=== PATIENT | male | born 1980 | race Caucasian/White ===

== ENCOUNTER 2019-08-30 20:45 | Inpatient (IN) | payer OTHER, SELFPAY ==
[2019-08-30 20:47] VITALS: BP 137/88; PULSE 93; RESP 16; TEMP 36.7; O2SAT 95; BMI 24.7
--- NOTE | 2019-08-30 21:12 | CT_ITS ---
STUDY: CT ABDOMEN AND PELVIS WITH CONTRAST REASON FOR EXAM: Male, 38 years old. ALL OVER ABD PAIN X 5 HOURS EXTRUSION FORMER, HX CHRONS DZ WITH COLOSTOMY RADIATION DOSAGE (If Supplied By Facility): CTDIvol = ( 12.61 ) mGy, DLP = ( 832.12 ) mGycm TECHNIQUE: Transaxial images were obtained from the dome of the diaphragm to the symphysis pubis without oral contrast. Oral and amp; IV Gastrografin and amp; 100mL Isovue-370 was administered. Sagittal and coronal images were reconstructed. Individualized dose optimization techniques were used for this CT. COMPARISON: None. FINDINGS: Moderate fluid distention of the stomach and full length of the small bowel due to a distal obstruction in the right upper quadrant where there is a zone of transition from dilated bowel loop to collapse posterior to the right anterior ostomy tract. Extrinsic adhesions suspected as a source for the zone of transition/narrowing. The bowel within the right anterior abdominal ostomy and leading up to this region is unremarkable. No definite colonic loops seen in the remaining aspects of the abdomen and pelvis. Is there history of total colectomy or subtotal colectomy? No free air or free fluid. Mild interstitial edema is present in the bilateral lung bases. Normal liver. No intrahepatic biliary duct dilatation or liver mass. Normal gallbladder and extrahepatic biliary system. Normal spleen. Normal pancreas. Normal bilateral adrenal glands. Normal right kidney. Normal left kidney. No hydronephrosis or renal masses. No large stones. Normal abdominal aorta. Normal inferior vena cava. Normal retroperitoneum. Normal urinary bladder. Normal abdominal wall. Normal osseous structures. CT/Abdomen/Pelvis WITH Contrast IMPRESSION: 1. Moderate fluid distention of the stomach and full length of the small bowel due to a distal obstruction in the right upper quadrant where there is a zone of transition from dilated bowel loop to collapse posterior to the right anterior ostomy tract. Extrinsic adhesions suspected as a source for the zone of transition/narrowing. 2. The bowel within the right anterior abdominal ostomy and leading up to this region is unremarkable. 3. No definite colonic loops seen in the remaining aspects of the abdomen and pelvis. Is there history of total colectomy or subtotal colectomy? 4. No free air or free fluid. 5. Mild interstitial edema is present in the bilateral lung bases. Electronically Signed: Gaetano Walton MD at 23:34 EST , Service support ,
[2019-08-30] MEDS: Ondansetron 4 MG/2 ML Vial IV (21:33)
[2019-08-30] MEDS: 0.9% Normal Saline 1,000 ML 125 ML IV (21:33)
[2019-08-30] MEDS: Morphine 4 MG/ML Syringe IV (21:33)
[2019-08-30 21:48] LABS: Absolute Neutrophil Count 9.2 X10^3/uL (2.0-7.7); Basophil# 0.02 X10^3/uL; Basophil% 0.2 % (0-1); Eosinophil# 0.06 X10^3/uL; Eosinophils% 0.6 % (0-5); Hematocrit 33.7 % (40-54); Hemoglobin 10.9 g/dL (13.0-16.5); Lymphocyte % 6.6 % (19-41); Mean Corp Hgb Conc 32.3 g/dL (32-36); Mean Corpuscular Volume 86.6 fL (80-94); Mean Platelet Vol. 9.1 fl (6.2-12.0); Monocyte# 0.57 X10^3/uL; Monocyte% 5.4 % (0-10); NRBC Flagged by Analyzer 0 % (0-5); Neutrophil # 9.17 X10^3/uL (2.7-7.7); Neutrophil % 86.8 % (47-70); Platelet Count 408 K/mm3 (150-450); RBC Distribution Width CV 14.2 % (11.6-14.6); RBC Distribution Width SD 45.1 fl (35.1-43.9); Red Blood Count 3.89 M/mm3 (4.6-6.2); White Blood Count 10.6 K/mm3 (4.4-11.0)
[2019-08-30 22:06] LABS: ALB/GLOB Ratio 0.7 RATIO (0.9-2.4); AST(SGOT) 14 U/L (15-37); Alanine Aminotransfer ALT/SGPT 19 U/L (16-61); Albumin, Serum 3.5 g/dL (3.2-5.0); Alkaline Phosphatase 86 U/L (45-117); Anion Gap 7 (5-15); BUN 7 mg/dL (7-18); BUN/Creat Ratio 4.6 RATIO (10-20); Calcium,Total 9.7 mg/dL (8.5-10.1); Chloride 100 mmol/L (98-107); Creatinine, Serum 1.51 mg/dL (0.70-1.30); EST Glomerular Filtration Rate 55 mL/min (>60); Est Glom Filt Rate - Afr Amer 67 mL/min (>60); Estimated Creatinine Clearance 77.12 ml/min; Globulin 4.7 g/dL (2.2-4.2); Glucose 112 mg/dL (74-106); Lipase 340 U/L (73-393); Potassium 3.7 mmol/L (3.5-5.1); Protein, Total 8.2 g/dL (6.4-8.2); Sodium Level 134 mmol/L (136-145)
[2019-08-30 22:32] LABS: Lactic Acid 0.8 mmol/L (0.4-1.9)
[2019-08-30] MEDS: Morphine 4 MG/ML Syringe IM (23:41)
--- NOTE | 2019-08-30 23:49 | PCM.HP.STD ---
Problem List (1) SBO (small bowel obstruction) Status: Acute History of Present Illness Date of Admission: 08/30/19 Chief Complaint: abdominal pain The patient is a 38 year old M with a significant history of asthma; anxiety disorder and Crohn's disease status post total colectomy and with ileostomy about 11 years ago presenting with excruciating abdominal pain. It started initially from the upper umbilical region but is now diffused. His pain is nonradiating. His pain increased with with sitting and touching. He denies any ameliorating factors His pain started about 5 and half hours prior to presentation. Associated with symptoms is nausea. Patient vomited while n.p.o. NG tube was attempted at the emergency department. Abdominal and pelvis CT at emergency department showed small bowel obstruction. Reported, Emergency Department doctor discussed the case with Dr. Mae, General Surgery who is ready to follow patient. Patient reported that he has had liquids output in his ileostomy. Past Medical History Medical History: Medical History (Last Reviewed 08/31/19 @ 01:02 by Claude Fields MD) Asthma J45.909 Crohn's disease K50.90 Allergies No Known Allergies Allergy (Verified 08/30/19 20:46) Home Medications: Ambulatory Orders Medication Instructions Recorded Gabapentin [Neurontin] 600 mg PO TIDCM 08/30/19 Surgical History: - - Total colectomy; ileostomy; multiple abdominal surgeries. Lives: With Family Smoking Status: Former smoker Tobacco Use: Cigarettes - *Family History Maternal History Items: Diabetes Paternal History Items: Cancer - Colon cancer and breast cancer Review of Systems Constitutional: Denies: Chills, Fever, Weight Change HEENT: Denies: Head Aches, Sinus Congestion, Sinus Drainage Cardiovascular: Denies: Chest Pain, Palpitations Respiratory: Denies: Cough, Shortness of breath at rest, Sputum production Gastrointestinal: Reports: Abdominal Pain, Nausea, Vomiting Genitourinary: Denies: Dysuria Musculoskeletal: Denies: Joint Pain, Joint Tenderness Skin: Denies: Rash, Wounds Neurological: Denies: Numbness, Tingling, Focal weakness Psychiatric: Reports: Anxiety. Denies: Depression, Homicidal Ideations, Suicidal Ideations Hematologic/ Lymphatic: Denies: Easy Bruising, Easy Bleeding VTE Information - Inpt Only VTE Present on Admission: No VTE Mechan Device Prophylaxis: SCD's VTE Pharm Prophylaxis ordered?: No Patient Problems: Active and Suspected Problems (Last Updated 08/31/19 @ 00:45 by Claude Fields MD) SBO (small bowel obstruction) (Acute) - Physical Exam Vitals/I&O's: Vital Signs Temp Pulse Resp BP Pulse Ox 98.1 F 93 16 137/88 H 95 08/30/19 20:47 08/30/19 20:47 08/30/19 20:47 08/30/19 20:47 08/30/19 20:47 Oxygen Delivery Method Room Air Weight: 87.5 kg Body Mass Index (BMI) 24.7 General: Alert, Oriented x3, Cooperative HEENT: Atraumatic, PERRLA, EOMI, Normocephalic Neck: Supple, No JVD, Negative Carotid Bruits Lungs: Clear to auscultation, Normal air movement Cardiovascular: Regular rate, Normal S1, Normal S2, No murmurs Abdomen: Bowel Sounds Present, Soft, Non Tender, - - Ileostomy bag present; healed midline incisions. Extremities: No edema, Capillary Refill Less than 3 Seconds Skin: No rashes, No breakdown Musculoskeletal: No Tenderness to Palpation of Joints or Extremities Neurological: Cranial nerves II-XII grossly intact Psych/Mental Status: Anxious Laboratory Results 08/30/19 21:35: WBC 10.6, RBC 3.89 L, Hgb 10.9 L, Hct 33.7 L, MCV 86.6, MCH 28.0, MCHC 32.3, RDW Std Deviation 45.1 H, RDW Coeff of Nish 14.2, Plt Count 408, MPV 9.1, Immature Gran % (Auto) 0.400, Neut % (Auto) 86.8 H, Lymph % (Auto) 6.6 L, [place] % (Auto) 5.4, Eos % (Auto) 0.6, Baso % (Auto) 0.2, Absolute Neuts (auto) 9.2 H, Absolute Lymphs (auto) 0.70 L, Nucleated RBC % 0 08/30/19 21:35: Sodium 134 L, Potassium 3.7, Chloride 100, Carbon Dioxide 27.0, Anion Gap 7, BUN 7, Creatinine 1.51 H, Estim Creat Clear Calc 77.12, Est GFR (MDRD) Af Amer 67, Est GFR (MDRD) Non-Af 55 L, BUN/Creatinine Ratio 4.6 L, Glucose 112 H, Calcium 9.7, Total Bilirubin 0.40, AST 14 L, ALT 19, Alkaline Phosphatase 86, Total Protein 8.2, Albumin 3.5, Globulin 4.7 H, Albumin/Globulin Ratio 0.7 L, Lipase 340 08/30/19 21:35: Lactic Acid 0.8 Current Medications Sodium Chloride () 1,000 mls @ 125 mls/hr IV .Q8H JOSE Last Admin: 08/30/19 21:33 Dose: 125 mls/hr Documented by: Assessment/Plan All Active Problems (Last Updated 08/31/19 @ 00:45 by Claude Fields MD) SBO (small bowel obstruction) (Acute) The patient is a 38 year old M with a significant history of asthma; anxiety disorder and Crohn's disease status post total colectomy and with ileostomy about 11 years ago presenting with excruciating abdominal pain;; nausea and vomiting found to have a small bowel obstruction on CT.. Small bowel obstruction Abdomen pelvis CT shows small bowel traction. Patient received morphine emergency department. He reported morphine did not give him much relief. Will start patient on Dilaudid. IV hydration. NG tube if possible and connect to low intermittent wall suction. Antiemetics with Zofran. Keep patient n.p.o. General surgery consult. Anxiety disorder He reported he takes gabapentin for anxiety. Hold all p.o. meds at this time. Ativan as needed ordered. TAMIKO On presentation his creatinine was 1.54 No previous creatinine to compare with. BUN is 7. BUN over creatinine is 4.6. Gentle IV hydration. Trend BMP. Avoid nephrotoxic's. DVT prophylaxis SCD. Code Visit Inpatient E&M: 27732 Init Hosp L3
[2019-08-30] MEDS: Lidocaine 4% 5 ML Ampul 2 ML INHALATION (23:54)
[2019-08-31] VITALS (9 sets, daily range): BP systolic 92–115; BP diastolic 56–72; PULSE 75–103; RESP 16–20; TEMP 36.6–38.6; O2SAT 93–98; BMI 24.2
--- NOTE | 2019-08-31 00:13 | ED.DCSUM_ITS ---
- ER Visit Summary Date of Service: 08/31/19 Chief Complaint: [Abdominal pain] History of Present Illness: The patient is a 38 M presents the emergency department abdominal pain that started 7 hours ago. Patient says the pain is mid abdomen. Has mild nausea but no vomiting. Patient has history of Crohn's disease and has an ileostomy that is had for about 11 years. His surgery for a total colectomy was at the [facility]. Patient denies any fevers. He denies urinary symptoms. He denies any blood in the stool. Patient still having normal output from his ileostomy [] Physical Examination: [HEENT-PERRLA, EOMI. Cranial nerves II through XII grossly intact. TMs clear. Mucous membranes moist. No adenopathy. Cardiovascular-regular rate and rhythm without murmur or ectopy Lungs-clear to auscultation, chest wall stable without crepitus or subcu emphysema Abdomen-normoactive bowel sounds, soft. Patient has tenderness in the mid abdomen with guarding. There is no rebound, rigidity, I Extremities-intact ?4, normal range of motion, normal pulses, atraumatic] Test Results: [CBC with differential obtained showed a white blood cell count of 10.6, hemoglobin 10.9, hematocrit 34, platelet 408. Chemistries unremarkable. BUN was 7 and creatinine 1.51. LFTs were normal. Lipase was 340. Lactate was normal 1.8. CT scan of the abdomen and pelvis with IV and p.o. contrast ordered was read by radiology as small bowel obstruction likely due to adhesions.] Emergency Department Course and Treatment: [Patient was medicated with morphine and Zofran. Patient had an NG tube placed to low intermittent suction. Patient was discussed with general surgeon on-call Dr. Nhi Mae at approximately 11:55 PM and she asked that we admit patient to hospitalist and she will consult on the case. This was discussed with hospitalist who will evaluate patient for admission] Treatment Plan: [Admit] Disposition: [Admit] Impression: [Abdominal pain Small bowel obstruction] This note was generated with CiRBAation software. It may contain incorrect words, spelling, and punctuation that were not noted in review of the chart prior to signing ED Disposition - Plan for ED Patient: Referrals: Chris Helms MD [Primary Care Provider] -
[2019-08-31] MEDS: 0.9% Saline Lock 10 ML Syringe IV ×5 (02:05→14:36)
[2019-08-31 02:06] LABS: Bacteria 0 SEEN /hpf (None Seen); Mucous, Urine 0 SEEN /hpf (<or=2+); Red Blood Cells-Urine 0 SEEN /hpf (0-5); Squamous Epithelial Cells - UA 0 SEEN /hpf (0-5); White Blood Cells 0 SEEN /hpf (0-5)
[2019-08-31] MEDS: HYDROmorphone 1 MG/ML Syringe IV ×3 (02:06→08:20)
[2019-08-31 02:08] LABS: Color, Urine Yellow (Yellow); Glucose, Dipstick Normal (Normal); Ketone-Dipstick Negative (Negative); Leukocyte Esterase-Dipstick Negative /ul (Negative); Nitrite-Dipstick Negative (Negative); Occult Blood-Urine Negative /ul (Negative); Protein-Dipstick 15 mg/dl (Negative); Specific Gravity, Urine 1.015 (1.002-1.030); Urine Bilirubin Dipstick Negative (Negative); Urine Clarity Clear (Clear); Urine Urobilinogen Normal (Normal)
[2019-08-31 02:20] LABS: Hyaline Cast 5-10 SEEN /lpf (0-5)
[2019-08-31] MEDS: 0.9% Normal Saline 1,000 ML 100 ML IV ×2 (02:50→14:36)
[2019-08-31 05:25] LABS: Absolute Lymphocyte Count 0.81 X10^3/uL (0.83-4.51); Absolute Neutrophil Count 5.5 X10^3/uL (2.0-7.7); Basophil# 0.03 X10^3/uL; Basophil% 0.4 % (0-1); Eosinophil# 0.22 X10^3/uL; Hematocrit 33.1 % (40-54); Hemoglobin 10.5 g/dL (13.0-16.5); Lymphocyte # 0.81 X10^3/ul (4.0); Lymphocyte % 10.9 % (19-41); Mean Corp Hgb Conc 31.7 g/dL (32-36); Mean Corpuscular Hgb 27.8 pg (27.0-32.0); Mean Corpuscular Volume 87.6 fL (80-94); Mean Platelet Vol. 9.1 fl (6.2-12.0); Monocyte# 0.85 X10^3/uL; Monocyte% 11.4 % (0-10); NRBC Flagged by Analyzer 0 % (0-5); Neutrophil # 5.52 X10^3/uL (2.7-7.7); Platelet Count 373 K/mm3 (150-450); RBC Distribution Width CV 14.3 % (11.6-14.6); RBC Distribution Width SD 45.4 fl (35.1-43.9); Red Blood Count 3.78 M/mm3 (4.6-6.2); White Blood Count 7.5 K/mm3 (4.4-11.0)
[2019-08-31 05:45] LABS: Anion Gap 6 (5-15); BUN 10 mg/dL (7-18); BUN/Creat Ratio 9.7 RATIO (10-20); Calcium,Total 8.9 mg/dL (8.5-10.1); Chloride 101 mmol/L (98-107); Creatinine, Serum 1.03 mg/dL (0.70-1.30); EST Glomerular Filtration Rate 86 mL/min (>60); Est Glom Filt Rate - Afr Amer 103 mL/min (>60); Estimated Creatinine Clearance 113.06 ml/min; Glucose 107 mg/dL (74-106); Potassium 3.7 mmol/L (3.5-5.1); Sodium Level 134 mmol/L (136-145)
--- NOTE | 2019-08-31 07:18 | CON.PCM_ITS ---
- Consult Date of Consult: 08/31/19 - Reason for Consult CC: abdominal pain HISTORY OF PRESENT ILLNESS: 38 y/o WM with known Crohn's disease presents with bowel obstruction. He was initially diagnosed with ulcerative colitis in 1999 refractory to medical management and underwent total colectomy, completion proctectomy, the creation of J pouch with loop ileostomy. He had complications of pouchitis, pelvic abscesses, etc. which resulted in multiple surgeries from 1999 - 2006 (surgeon stated in report numerous adhesions in abdomen). He has an end results of - total colectomy and proctectomy and right lower quadrant ileostomy. Ultimately, he was diagnosed with Crohn's. He is not taking any medications for this. He states that he has had intermittent episodes of obstruction which he treats at home, usually once every 3 years. He presented to ED at [facility]. WBC:7.5K Hgb 10.5 slight left shift of differential CT scan - NO ORAL CONTRAST - IMPRESSION: 1. Moderate fluid distention of the stomach and full length of the small bowel due to a distal obstruction in the right upper quadrant where there is a zone of transition from dilated bowel loop to collapse posterior to the right anterior ostomy tract. Extrinsic adhesions suspected as a source for the zone of transition/narrowing. 2. The bowel within the right anterior abdominal ostomy and leading up to this region is unremarkable. 3. No definite colonic loops seen in the remaining aspects of the abdomen and pelvis. Is there history of total colectomy or subtotal colectomy? 4. No free air or free fluid. 5. Mild interstitial edema is present in the bilateral lung bases. PAST MEDICAL HISTORY ? Abscess of anal and rectal regions 12/30/2005 ? ADD (attention deficit disorder) ? ? Anemia ? ? Bowel disease ? ? Crohn's ? ? Depression ? ? Fracture ? ? History of alcoholism ([facility]) 2012 ? Rehab ? Mild intermittent asthma with acute exacerbation 01/22/2016 ? Regional enteritis of unspecified site 07/31/2005 ? PAST SURGICAL HISTORY ? COLONOSCOP W/ OR W/O [facility] SPEC ? ? ? Colonoscopy ? PAST SURGICAL HISTORY OF ? ? ? Multiple abdominal operations for IBD - total colectomy with end ileostomy ? PICC LINE INSERT/CONSULT ? 11/16/2013 ? ? ? ALLERGIES Adhesive Tapes [Other] ? MEDICATIONS CURRENT MEDICATIONS budesonide (PULMICORT FLEXHALER) 180 mcg/actuation aepb Inhale 2 Puffs as instructed twice daily. gabapentin (NEURONTIN) 600 mg tablet Take 1 tablet by mouth three times daily for 180 days. COMPOUNDED PRESCRIPTION Stomahesive ref# [id number],drainable pooch ref# [id number], wafer ref# [id number]. Dx: Z87.898, K50.119 albuterol HFA (VENTOLIN HFA) 90 mcg/actuation inhaler Inhale 1 Puff as instructed every 6 hours as needed for Wheezing/Shortness of Breath. ?? FAMILY HISTORY ? None Mother ? ? None Father ? ? Hyperlipidemia Father ? ? Hypertension Father ? ? Diabetes Maternal Grandmother ? ? other (diverticulosis) Maternal Grandmother ? ? other (CAD) Maternal Grandmother ? ? other (DM) Maternal Grandfather ? ? other (CHF) Maternal Grandfather ? ? Alzheimer's Disease Paternal Grandmother ? ? Colon Cancer Paternal Grandfather ? ? other (crohns) Other ? ? mcousin ? ? SOCIAL HISTORY Tobacco Use ? Smoking status: Former Smoker ? ? Last attempt to quit: 05/14/2005 ? ? Years since quittin.3 ? Smokeless tobacco: Never Used ? Tobacco comment: Quit in Late 2004; Smoked about 1 pack every 3 days for 10 years Substance Use Topics ? Alcohol use: Yes ? ? Frequency: Monthly or less ? ? Comment: Recovering since 2012 ? Drug use: No ? REVIEW OF SYSTEMS General: no fevers, no chills, no night sweats, no recurrent infections, no change in appetite, no change in energy and no significant changes in weight HEENT: no frequent or significant headaches, no changes in hearing, no visual changes, no nose bleeds, no sinus or nasal problems Neck: no lumps, no pain and no swelling Respiratory: denies coughing up blood Cardiovascular: no chest pain, no chest pressure, no palpitations and no swelling GI: see HPI : No history of dysuria, frequency or incontinence Musculoskeletal: Negative for joint pain or swelling, back pain or muscle pain Skin: Negative for lesions, rash, and itching Psych: Remote history of ETOH abuse, Negative for sleep disturbance, mood disorder and hallucinations Endocrine: denies diabetes PHYSICAL EXAM Temp 100.8F BP 113/80 Pulse 87 Resp 16 Wt 83.9 kg (185 lb) SpO2 97% General Appearance: well appearing, in no acute distress, alert Pysch: mood and affect broad and appropriate Skin: normal skin integrity, no rashes noted Head: normocephalic, atraumatic Eyes: EOMI, no icterus, sclera white, non-injected Oropharynx: mucus membranes moist Lungs: lungs clear to auscultation. No wheezing, rhonchi, rales Heart: RRR without murmur, gallop, or rubs. No ectopy Abdomen: Abdomen soft, non-tender. Bowel sounds normal. ileostomy in right lower quadrant. ? Impression: partial bowel obstruction - clinically resolving Plan: patient states that he feels much improved with less pain- states that he has had normal output via his ileostomy this morning I will recheck patient this afternoon - may be able to discharge later today if patient continues to clinically improve Does have temp of 100.8 - will check CXR, recheck KUB also Appreciate Dr. Fields's care of patient last night
--- NOTE | 2019-08-31 07:34 | RAD_ITS ---
STUDY: X-RAY - ABDOMEN/PELVIS REASON FOR EXAM: Male, 38 years old. SBO, ILEOSTOMY 2009, PAIN TECHNIQUE: 3 AP supine and upright views of the abdomen and pelvis. COMPARISON: CT of abdomen and pelvis dated August 30, 2019 FINDINGS: Normal visualized lung bases. There is an unremarkable bowel gas pattern. There is no demonstrated free abdominal air. Normal soft tissue structures. Normal visualized osseous structures. Right side ileostomy bowel wall component noted. RAD/Abd Inc Decub and/or Erect IMPRESSION: Unremarkable bowel gas pattern on this x-ray. Electronically Signed: Gaetano Walton MD at 23:59 EST , Service support ,
--- NOTE | 2019-08-31 07:36 | RAD_ITS ---
STUDY: X-RAY CHEST REASON FOR EXAM: Male, 38 years old. SOB TECHNIQUE: PA and lateral views of the chest. COMPARISON: August 31, 2019 FINDINGS: The lungs are clear and expanded. There is no demonstrated pleural abnormality. Normal size heart. Normal mediastinum and valentino. Normal visualized pulmonary arteries. Normal visualized aortic arch and descending thoracic aorta. Normal visualized thoracic spine. Normal visualized ribs, clavicles, and shoulders. There is no demonstrated abnormality of the visualized soft tissue structures of the upper abdomen. RAD/Chest PA and Lateral IMPRESSION: Normal x-ray examination of the chest. Electronically Signed: Gaetano Walton MD at 20:51 EST , Service support ,
--- NOTE | 2019-08-31 08:03 | NURSING ---
Was consulted on patient for ostomy care. mother present at bedside. patient states he has had his ileostomy for approx 11 years now d/t Chrohn's Disease. patient does own appliance changes, etc. states he gets his supplies through [employer] and is not currently having any issues with supplies. patient was admitted for abdominal pain/SBO. patient states he has had 3 large bowel movements this am and his abdominal pain is much improved. States Dr Mae was in this am and plans to possibly send patient home later today if no further issues. Pt aware to call for needs.
[2019-08-31] MEDS: Acetaminophen 325 MG Tablet 650 MG PO ×2 (10:06→18:14)
[2019-08-31] MEDS: LORazepam 2 MG/ML Syringe 1 MG IV (10:12)
--- NOTE | 2019-08-31 11:59 | CASEMGMT ---
RN CM Assessment Note Presentation: PSBO Intro role of CM and purpose of RN CM assessment to patient in room. Pt sleepy, but awakens to participate in assessment. Demographics, PCP and Pharmacy verified. Pt states he lives alone, no care needs. Cares for own ileostomy and supplies are through [facility]. PCP: Dr. Helms Specialists: Dr. Mae, general surgery Preferred [facility]acy: [facility] Insurance: [employer] Prescription Benefit: yes LNOK: Brother Sonny Gomez Living Arrangements: Lives independently. Denies care needs and states he is independent with ADL's Transportation: drives DME: none except supplies for ileostomy Patient DC goals: Home DC PLAN: anticipate home. Harsh GROSSMAN RN ACM
--- NOTE | 2019-08-31 12:08 | PCM.PROGNOTE ---
<Janny Jackman - Last Filed: 08/31/19 12:14> Patient Problems: Active and Suspected Problems (Last Reviewed 08/31/19 @ 01:02 by Claude Fields MD) SBO (small bowel obstruction) (Acute) Subjective: Patient seen and examined. Overall feels abdominal pain improving however continues to have intermittent discomfort. Intermittent fever. Denies nausea, vomiting. - Physical Exam Vitals/I&O's: Vital Signs Temp Pulse Resp BP Pulse Ox 100.8 F H 96 18 103/68 95 08/31/19 05:25 08/31/19 05:25 08/31/19 05:25 08/31/19 05:25 08/31/19 07:40 Oxygen Delivery Method Room Air Weight: 188 lb 11.451 oz Body Mass Index (BMI) 24.2 Intake and Output for Last 24 Hours 08/29/19 08/30/19 08/31/19 23:59 23:59 23:59 Intake Total 660 / 660 Balance 660 / 660 General: Alert, Oriented x3, Cooperative HEENT: Atraumatic, PERRLA, EOMI, Normocephalic Neck: Supple, No JVD, Negative Carotid Bruits Lungs: Clear to auscultation, Normal air movement Cardiovascular: Regular rate, Regular Rhythm, Normal S1, Normal S2, No murmurs Abdomen: Bowel Sounds Present, Soft, Non Tender, Non-Distended, - - Ileostomy present Extremities: No clubbing, No cyanosis, No edema, Capillary Refill Less than 3 Seconds Skin: No rashes, No breakdown Musculoskeletal: No Tenderness to Palpation of Joints or Extremities Neurological: Cranial nerves II-XII grossly intact, Neuro grossly intact Psych/Mental Status: Normal Affect, Appropriate Laboratory Results 08/30/19 21:35: WBC 10.6, RBC 3.89 L, Hgb 10.9 L, Hct 33.7 L, MCV 86.6, MCH 28.0, MCHC 32.3, RDW Std Deviation 45.1 H, RDW Coeff of Nish 14.2, Plt Count 408, MPV 9.1, Immature Gran % (Auto) 0.400, Neut % (Auto) 86.8 H, Lymph % (Auto) 6.6 L, [place] % (Auto) 5.4, Eos % (Auto) 0.6, Baso % (Auto) 0.2, Absolute Neuts (auto) 9.2 H, Absolute Lymphs (auto) 0.70 L, Nucleated RBC % 0 08/30/19 21:35: Sodium 134 L, Potassium 3.7, Chloride 100, Carbon Dioxide 27.0, Anion Gap 7, BUN 7, Creatinine 1.51 H, Estim Creat Clear Calc 77.12, Est GFR (MDRD) Af Amer 67, Est GFR (MDRD) Non-Af 55 L, BUN/Creatinine Ratio 4.6 L, Glucose 112 H, Calcium 9.7, Total Bilirubin 0.40, AST 14 L, ALT 19, Alkaline Phosphatase 86, Total Protein 8.2, Albumin 3.5, Globulin 4.7 H, Albumin/Globulin Ratio 0.7 L, Lipase 340 08/30/19 21:35: Lactic Acid 0.8 08/31/19 01:55: Urine Color Yellow, Urine Clarity Clear, Urine pH 6.0, Ur Specific [place] 1.015, Urine Protein 15 H, Urine Glucose (UA) Normal, Urine Ketones Negative, Urine Occult Blood Negative, Urine Nitrite Negative, Urine Bilirubin Negative, Urine Urobilinogen Normal, Ur Leukocyte Esterase Negative, Urine RBC 0 SEEN, Urine WBC 0 SEEN, Ur Squamous Epith Cells 0 SEEN, Urine Bacteria 0 SEEN, Hyaline Casts 5-10 SEEN, Urine Mucus 0 SEEN 08/31/19 05:00: WBC 7.5, RBC 3.78 L, Hgb 10.5 L, Hct 33.1 L, MCV 87.6, MCH 27.8, MCHC 31.7 L, RDW Std Deviation 45.4 H, RDW Coeff of Nish 14.3, Plt Count 373, MPV 9.1, Immature Gran % (Auto) 0.300, Neut % (Auto) 74.0 H, Lymph % (Auto) 10.9 L, [place] % (Auto) 11.4 H, Eos % (Auto) 3.0, Baso % (Auto) 0.4, Absolute Neuts (auto) 5.5, Absolute Lymphs (auto) 0.81 L, Nucleated RBC % 0 08/31/19 05:00: Sodium 134 L, Potassium 3.7, Chloride 101, Carbon Dioxide 27.0, Anion Gap 6, BUN 10, Creatinine 1.03, Estim Creat Clear Calc 113.06, Est GFR (MDRD) Af Amer 103, Est GFR (MDRD) Non-Af 86, BUN/Creatinine Ratio 9.7 L, Glucose 107 H, Calcium 8.9 Current Medications Acetaminophen (Tylenol) 650 mg PO Q6H PRN PRN PRN Reason: temp 100.4 and above Last Admin: 08/31/19 10:06 Dose: 650 mg Documented by: Glucagon () 1 mg IM .X1 PRN PRN Reason: Hypoglycemia Hydromorphone HCl (Dilaudid Inj) 1 mg IV Q3H PRN PRN PRN Reason: Pain Score 6-10/10 Last Admin: 08/31/19 08:20 Dose: 1 mg Documented by: Sodium Chloride () 1,000 mls @ 100 mls/hr IV .Q10H JOSE Last Admin: 08/31/19 02:50 Dose: 100 mls/hr Documented by: Dextrose (Dextrose 10%-Water) 250 mls @ 999 mls/hr IV .Q16M PRN; Protocol PRN Reason: HYPOGLYCEMIA Lorazepam (Ativan) 1 mg IV Q6H PRN PRN PRN Reason: ANXIETY Last Admin: 08/31/19 10:12 Dose: 1 mg Documented by: Ondansetron HCl (Zofran) 4 mg IV Q8H PRN PRN PRN Reason: NAUSEA/VOMITING Sodium Chloride () 10 - 40 ml IV UD PRN PRN Reason: SALINE FLUSH Last Admin: 08/31/19 10:12 Dose: 10 ml Documented by: Medical Necessity - Tobacco Use Smoking Status: Former smoker Tobacco Use: Cigarettes Assessment/Plan All Active Problems (Last Reviewed 08/31/19 @ 01:02 by Claude Fields MD) SBO (small bowel obstruction) (Acute) 1. Small bowel obstruction- Dr. Mae following. Patient has history of intermittent bowel obstructions. Remains n.p.o. If patient symptoms remain improved, anticipate advancing diet later. Surgery to follow-up with patient later today. 2. Acute kidney injury-resolved with IV fluids. 3. Crohn's disease status post total colectomy-right lower quadrant ileostomy. Not on medication regimen. 4. Anxiety disorder-on gabapentin for anxiety? Oral meds on hold. As needed Ativan. 5. Chronic asthma-no exacerbation. As needed albuterol aerosol. DVT prophylaxis-low risk, not indicated This patient was seen by JAYLENE Garces under the supervision of Dr. Helm. <Andrei Helm - Last Filed: 08/31/19 16:04> Subjective: Seen and examined. Patient has low-grade fever, T-max 100.8 Fahrenheit. Blood cultures x2 ordered. Chest x-ray and abdominal x-ray reviewed. It does not show acute abnormality. - Physical Exam Vitals/I&O's: Vital Signs Temp Pulse Resp BP Pulse Ox 98.5 F 88 16 92/56 L 95 08/31/19 14:44 08/31/19 14:44 08/31/19 14:44 08/31/19 14:44 08/31/19 14:44 Oxygen Delivery Method Room Air Weight: 188 lb 11.451 oz Body Mass Index (BMI) 24.2 Intake and Output for Last 24 Hours 08/29/19 08/30/19 08/31/19 23:59 23:59 23:59 Intake Total 1660 / 1660 Balance 1660 / 1660 General: Alert, Oriented x3, Cooperative HEENT: Atraumatic, PERRLA, EOMI, Normocephalic Neck: Supple, No JVD, Negative Carotid Bruits Lungs: Clear to auscultation, Normal air movement, No rhonchi, No wheeze, No rales Cardiovascular: Regular rate, Regular Rhythm, Normal S1, Normal S2, No murmurs Abdomen: Bowel Sounds Present, Soft, Non Tender, Non-Distended, Hypoactive Bowel Sounds, - - Ileostomy present No change in frequency or amount of ileostomy output. No blood as per the patient Extremities: No edema, Capillary Refill Less than 3 Seconds Skin: No rashes, No breakdown Musculoskeletal: No Tenderness to Palpation of Joints or Extremities Neurological: Cranial nerves II-XII grossly intact, Deep Tendon Reflexes 2+/4 and Symmetrical, Neuro grossly intact, - - Involuntary movement of both upper extremities lower extremities, chronic in nature Psych/Mental Status: Normal Affect, Appropriate Laboratory Results 08/30/19 21:35: WBC 10.6, RBC 3.89 L, Hgb 10.9 L, Hct 33.7 L, MCV 86.6, MCH 28.0, MCHC 32.3, RDW Std Deviation 45.1 H, RDW Coeff of Nish 14.2, Plt Count 408, MPV 9.1, Immature Gran % (Auto) 0.400, Neut % (Auto) 86.8 H, Lymph % (Auto) 6.6 L, [place] % (Auto) 5.4, Eos % (Auto) 0.6, Baso % (Auto) 0.2, Absolute Neuts (auto) 9.2 H, Absolute Lymphs (auto) 0.70 L, Nucleated RBC % 0 08/30/19 21:35: Sodium 134 L, Potassium 3.7, Chloride 100, Carbon Dioxide 27.0, Anion Gap 7, BUN 7, Creatinine 1.51 H, Estim Creat Clear Calc 77.12, Est GFR (MDRD) Af Amer 67, Est GFR (MDRD) Non-Af 55 L, BUN/Creatinine Ratio 4.6 L, Glucose 112 H, Calcium 9.7, Total Bilirubin 0.40, AST 14 L, ALT 19, Alkaline Phosphatase 86, Total Protein 8.2, Albumin 3.5, Globulin 4.7 H, Albumin/Globulin Ratio 0.7 L, Lipase 340 08/30/19 21:35: Lactic Acid 0.8 08/31/19 01:55: Urine Color Yellow, Urine Clarity Clear, Urine pH 6.0, Ur Specific [place] 1.015, Urine Protein 15 H, Urine Glucose (UA) Normal, Urine Ketones Negative, Urine Occult Blood Negative, Urine Nitrite Negative, Urine Bilirubin Negative, Urine Urobilinogen Normal, Ur Leukocyte Esterase Negative, Urine RBC 0 SEEN, Urine WBC 0 SEEN, Ur Squamous Epith Cells 0 SEEN, Urine Bacteria 0 SEEN, Hyaline Casts 5-10 SEEN, Urine Mucus 0 SEEN 08/31/19 01:55: Urine Opiates Screen POSITIVE H, Urine Methadone Screen NEGATIVE, Ur Barbiturates Screen NEGATIVE, Ur Phencyclidine Scrn NEGATIVE, Ur Amphetamines Screen NEGATIVE, U Methamphetamin-MDMA NEGATIVE, U Benzodiazepines Scrn NEGATIVE, Urine Cocaine Screen NEGATIVE, U Cannabinoids Screen NEGATIVE, Ur Drug Screen Comment 08/31/19 05:00: WBC 7.5, RBC 3.78 L, Hgb 10.5 L, Hct 33.1 L, MCV 87.6, MCH 27.8, MCHC 31.7 L, RDW Std Deviation 45.4 H, RDW Coeff of Nish 14.3, Plt Count 373, MPV 9.1, Immature Gran % (Auto) 0.300, Neut % (Auto) 74.0 H, Lymph % (Auto) 10.9 L, [place] % (Auto) 11.4 H, Eos % (Auto) 3.0, Baso % (Auto) 0.4, Absolute Neuts (auto) 5.5, Absolute Lymphs (auto) 0.81 L, Nucleated RBC % 0 08/31/19 05:00: Sodium 134 L, Potassium 3.7, Chloride 101, Carbon Dioxide 27.0, Anion Gap 6, BUN 10, Creatinine 1.03, Estim Creat Clear Calc 113.06, Est GFR (MDRD) Af Amer 103, Est GFR (MDRD) Non-Af 86, BUN/Creatinine Ratio 9.7 L, Glucose 107 H, Calcium 8.9 Current Medications Acetaminophen (Tylenol) 650 mg PO Q6H PRN PRN PRN Reason: temp 100.4 and above Last Admin: 08/31/19 10:06 Dose: 650 mg Documented by: Glucagon () 1 mg IM .X1 PRN PRN Reason: Hypoglycemia Hydromorphone HCl (Dilaudid Inj) 1 mg IV Q3H PRN PRN PRN Reason: Pain Score 6-10/10 Last Admin: 08/31/19 08:20 Dose: 1 mg Documented by: Sodium Chloride () 1,000 mls @ 100 mls/hr IV .Q10H JOSE Last Admin: 08/31/19 14:36 Dose: 100 mls/hr Documented by: Dextrose (Dextrose 10%-Water) 250 mls @ 999 mls/hr IV .Q16M PRN; Protocol PRN Reason: HYPOGLYCEMIA Lorazepam (Ativan) 1 mg IV Q6H PRN PRN PRN Reason: ANXIETY Last Admin: 08/31/19 10:12 Dose: 1 mg Documented by: Ondansetron HCl (Zofran) 4 mg IV Q8H PRN PRN PRN Reason: NAUSEA/VOMITING Sodium Chloride () 10 - 40 ml IV UD PRN PRN Reason: SALINE FLUSH Last Admin: 08/31/19 14:36 Dose: 10 ml Documented by: Assessment/Plan This patient was seen in conjunction with MEDICAL SALES REPRESENTATIVEJanny. I have independently interviewed and examined the patient and reviewed pertinent history, examination findings, laboratory and plan of management. I have reviewed the note and agree with the documented findings with the few additional points. In brief, patient is 38-year-old gentleman with history of Crohn's disease status post total colectomy and ileostomy about 11 years ago is admitted with diffuse abdominal pain for about 2 days. Patient denies any change in frequency or amount of ileostomy output. No blood in the ileostomy. 1. Small bowel obstruction: Has mild grade fever while an inpatient. CT abdomen shows moderate fluid distention of the stomach and full length of the small bowel which reported as transition zone in the right upper quadrant. Enteric bacteriology panel, stool for occult blood and WBC and blood cultures x2 ordered. Chest x-ray and abdominal x-ray reviewed and does not show acute abnormality. Abdominal x-ray still shows bowel gas shadow. 2. Anxiety disorder and restlessness I inquired about the involuntary movement of upper extremity with patient and mother and said it is chronic and its is nature probably restless or fidgety. He does not have diagnosis of any brain lesion or chronic neurological disease. 3. Acute kidney injury most probably secondary to prerenal/fluid safety: BUN/creatinine improving. Other chronic comorbidities asthma as mentioned above I have discussed my assessment with MEDICAL SALES REPRESENTATIVEJanny and orders have been reviewed. Clinical Impression(s) from Imaging Studies Abdomen/Pelvis CT 08/30/19 21:12 IMPRESSION: 1. Moderate fluid distention of the stomach and full length of the small bowel due to a distal obstruction in the right upper quadrant where there is a zone of transition from dilated bowel loop to collapse posterior to the right anterior ostomy tract. Extrinsic adhesions suspected as a source for the zone of transition/narrowing. 2. The bowel within the right anterior abdominal ostomy and leading up to this region is unremarkable. 3. No definite colonic loops seen in the remaining aspects of the abdomen and pelvis. Is there history of total colectomy or subtotal colectomy? 4. No free air or free fluid. 5. Mild interstitial edema is present in the bilateral lung bases. Code Visit Inpatient E&M: 83005 Subs Hosp L2
[2019-08-31 13:33] LABS: Amphetamine Urine VISTA NEGATIVE (<1000 ng/mL); Barbiturate Urine VISTA NEGATIVE (< 200 ng/mL); Benzodiazepine Urine VISTA NEGATIVE (< 200 ng/mL); Cocaine Urine VISTA NEGATIVE (< 300 ng/mL); Ecstacy Urine VISTA NEGATIVE (< 500 ng/mL); Methadone Urine VISTA NEGATIVE (< 300 ng/mL); PCP Urine VISTA NEGATIVE (< 25 ng/mL); THC Urine VISTA NEGATIVE (< 50 ng/mL); Vista UDS pH Range 6
[2019-08-31] MEDS: 0.9% Normal Saline 1,000 ML 999 ML IV (18:02)
[2019-08-31] MEDS: AMOXICILLIN 500 MG CAPSULE PO (18:04)
[2019-09-01] MEDS: 0.9% Normal Saline 1,000 ML 150 ML IV (00:15)
[2019-09-01 02:45] VITALS: BP 126/76; PULSE 93; RESP 18; TEMP 36.6; O2SAT 95
[2019-09-01] MEDS: Acetaminophen 325 MG Tablet 650 MG PO (06:03)
[2019-09-01 06:11] LABS: Hematocrit 28.5 % (40-54); Hemoglobin 8.9 g/dL (13.0-16.5); Mean Corp Hgb Conc 31.2 g/dL (32-36); Mean Corpuscular Hgb 27.1 pg (27.0-32.0); Mean Corpuscular Volume 86.6 fL (80-94); Mean Platelet Vol. 9.3 fl (6.2-12.0); Platelet Count 327 K/mm3 (150-450); RBC Distribution Width CV 14.2 % (11.6-14.6); RBC Distribution Width SD 44.5 fl (35.1-43.9); Red Blood Count 3.29 M/mm3 (4.6-6.2); White Blood Count 7.7 K/mm3 (4.4-11.0)
[2019-09-01 06:50] LABS: Anion Gap 3 (5-15); BUN 11 mg/dL (7-18); BUN/Creat Ratio 16.1 RATIO (10-20); Calcium,Total 8.3 mg/dL (8.5-10.1); Chloride 107 mmol/L (98-107); Creatinine, Serum 0.68 mg/dL (0.70-1.30); EST Glomerular Filtration Rate 138 mL/min (>60); Est Glom Filt Rate - Afr Amer 167 mL/min (>60); Estimated Creatinine Clearance 171.25 ml/min; Glucose 100 mg/dL (74-106); Potassium 3.7 mmol/L (3.5-5.1); Sodium Level 137 mmol/L (136-145)
--- NOTE | 2019-09-01 07:43 | PCM.DC.GS ---
Discharge Diet: No Restrictions - drink more fluids, avoid carbonated beverages Discharge Activity: Return to Normal Activity Return to work on:: 09/06/19 Allergies/Adverse Reactions: Allergies No Known Allergies Allergy (Verified 08/30/19 20:46) Medications to take at Discharge Gabapentin [Neurontin] 600 mg PO TIDCM 08/30/19 Albuterol Inhaler [Ventolin Hfa (SP)] 1 puff INHALATION Q4H PRN PRN 08/31/19 Amoxicillin 500 mg PO Q8 7 Days #21 tab 08/31/19 Budesonide Inhaler 180 mcg [Pulmicort Inhaler 180 mcg] 1 puff INHALATION BID 08/31/19 The following prescriptions were given: Amoxicillin 500 mg PO Q8 7 Days #21 tab Transmission Status: Received by [facility] Primary Care Physician: Chris Helms MD [Primary Care Provider] - Test Results: Test results from this visit will be discussed in further detail at your follow-up appointment, if applicable.
--- NOTE | 2019-09-01 08:06 | PN.SURG_ITS ---
Patient Problems: Active and Suspected Problems (Last Reviewed 08/31/19 @ 01:02 by Claude Fields MD) SBO (small bowel obstruction) (Acute) Subjective: patient denies abdominal pain, has minimal cramping, has air and liquid bowel movements per stoma - Physical Exam Vitals/I&O's: Vital Signs Temp Pulse Resp BP Pulse Ox 98 F 93 18 126/76 H 95 09/01/19 02:45 09/01/19 02:45 09/01/19 02:45 09/01/19 02:45 09/01/19 02:45 Oxygen Delivery Method Room Air Weight: 85.6 kg Body Mass Index (BMI) 24.2 Intake and Output for Last 24 Hours 08/30/19 08/31/19 09/01/19 23:59 23:59 23:59 Intake Total 3117 / 3117 1919.5 / 1919.5 Output Total 750 / 750 Balance 3117 / 2917 1169.5 / 1169.5 General: Alert, Oriented x3 Oral: Moist Mucosa Neck: Supple Lungs: Normal air movement Abdomen: Bowel Sounds Present, Soft Laboratory Results 08/31/19 01:55: Urine Opiates Screen POSITIVE H, Urine Methadone Screen NEGATIVE, Ur Barbiturates Screen NEGATIVE, Ur Phencyclidine Scrn NEGATIVE, Ur Amphetamines Screen NEGATIVE, U Methamphetamin-MDMA NEGATIVE, U Benzodiazepines Scrn NEGATIVE, Urine Cocaine Screen NEGATIVE, U Cannabinoids Screen NEGATIVE, Ur Drug Screen Comment 09/01/19 05:38: WBC 7.7, RBC 3.29 L, Hgb 8.9 L, Hct 28.5 L, MCV 86.6, MCH 27.1, MCHC 31.2 L, RDW Std Deviation 44.5 H, RDW Coeff of Nish 14.2, Plt Count 327, MPV 9.3 09/01/19 05:38: Sodium 137, Potassium 3.7, Chloride 107, Carbon Dioxide 27.0, Anion Gap 3 L, BUN 11, Creatinine 0.68 L, Estim Creat Clear Calc 171.25, Est GFR (MDRD) Af Amer 167, Est GFR (MDRD) Non-Af 138, BUN/Creatinine Ratio 16.1, Glucose 100, Calcium 8.3 L Current Medications Acetaminophen (Tylenol) 650 mg PO Q6H PRN PRN PRN Reason: temp 100.4 and above Last Admin: 09/01/19 06:03 Dose: 650 mg Documented by: Glucagon () 1 mg IM .X1 PRN PRN Reason: Hypoglycemia Hydromorphone HCl (Dilaudid Inj) 1 mg IV Q3H PRN PRN PRN Reason: Pain Score 6-10/10 Last Admin: 08/31/19 08:20 Dose: 1 mg Documented by: Dextrose (Dextrose 10%-Water) 250 mls @ 999 mls/hr IV .Q16M PRN; Protocol PRN Reason: HYPOGLYCEMIA Ampicillin Sodium/Sulbactam (Sodium 3 gm/ Sodium Chloride) 112 mls @ 150 mls/hr IV Q6 JOSE Last Admin: 09/01/19 06:00 Dose: 150 mls/hr Documented by: Lorazepam (Ativan) 1 mg IV Q6H PRN PRN PRN Reason: ANXIETY Last Admin: 08/31/19 10:12 Dose: 1 mg Documented by: Ondansetron HCl (Zofran) 4 mg IV Q8H PRN PRN PRN Reason: NAUSEA/VOMITING Sodium Chloride () 10 - 40 ml IV UD PRN PRN Reason: SALINE FLUSH Last Admin: 08/31/19 14:36 Dose: 10 ml Documented by: Medical Necessity - Tobacco Use Smoking Status: Former smoker Tobacco Use: Cigarettes Assessment/Plan All Active Problems (Last Reviewed 08/31/19 @ 01:02 by Claude Fields MD) SBO (small bowel obstruction) (Acute) IMPRESSION: partial SBO - resolved clinically fevers PLAN: had sinus type symptoms, started empirically on amoxacillin, patient states that he feels better with this tolerating liquids can d/c to home, patient states that 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
[2019-09-01 08:40] VITALS: BP 110/71; PULSE 68; RESP 14; TEMP 36.5; O2SAT 97
--- NOTE | 2019-09-01 09:09 | PCM.DC ---
- Discharge Diagnoses Current Active Problems: Current Active and Chronic Problems (Last Reviewed 08/31/19 @ 01:02 by Claude Fields MD) SBO (small bowel obstruction) (Acute) You will use the following diet at home:: No restrictions, Other - Drink more fluids, avoid carbonated beverages Discharge Activity: Return to Normal Activity Return to work on:: 09/06/19 Call your doctor if you observe: Shortness of breath, Dizziness, Fainting spells, Chest pain Allergies/Adverse Reactions: Allergies No Known Allergies Allergy (Verified 08/30/19 20:46) Medications to take at Discharge Gabapentin [Neurontin] 600 mg PO TIDCM 08/30/19 Albuterol Inhaler [Ventolin Hfa (SP)] 1 puff INHALATION Q4H PRN PRN 08/31/19 Amoxicillin 500 mg PO Q8 7 Days #21 tab 08/31/19 Budesonide Inhaler 180 mcg [Pulmicort Inhaler 180 mcg] 1 puff INHALATION BID 08/31/19 The following prescriptions were given: Amoxicillin 500 mg PO Q8 7 Days #21 tab Transmission Status: Received by [facility] [facility] Primary Care Physician: Chris Helms MD [Primary Care Provider] - Please follow up with your Primary Care Physician in: 1 Week Test Results: Test results from this visit will be discussed in further detail at your follow-up appointment, if applicable. Please Follow Up With: Nhi Mae MD When: As needed Proposed Discharge Date: 09/01/19
--- NOTE | 2019-09-01 09:11 | PCM.DC.SUM ---
<Janny Jackman - Last Filed: 09/01/19 09:19> Discharge Date and Diagnosis Date of Admission: 08/30/19 Date of Discharge: 09/01/19 - Primary Discharge Diagnosis Active and Suspected Problems (Last Reviewed 08/31/19 @ 01:02 by Claude Fields MD) 1. Small bowel obstruction 2. Acute kidney injury 3. Crohn's disease status post total colectomy-right lower quadrant ileostomy. 4. Anxiety disorder 5. Chronic asthma 6. Acute sinusitis Hospital Course and Treatment Imaging Results: Diagnostic Data Abdomen/Pelvis CT 08/30/19 21:12 IMPRESSION: 1. Moderate fluid distention of the stomach and full length of the small bowel due to a distal obstruction in the right upper quadrant where there is a zone of transition from dilated bowel loop to collapse posterior to the right anterior ostomy tract. Extrinsic adhesions suspected as a source for the zone of transition/narrowing. 2. The bowel within the right anterior abdominal ostomy and leading up to this region is unremarkable. 3. No definite colonic loops seen in the remaining aspects of the abdomen and pelvis. Is there history of total colectomy or subtotal colectomy? 4. No free air or free fluid. 5. Mild interstitial edema is present in the bilateral lung bases. Electronically Signed: Gaetano Walton MD at 23:34 EST , Service support , Abdomen X-Ray 08/31/19 07:34 IMPRESSION: Unremarkable bowel gas pattern on this x-ray. Electronically Signed: Gaetano Walton MD at 23:59 EST , Service support , Chest X-Ray 08/31/19 07:36 IMPRESSION: Normal x-ray examination of the chest. Electronically Signed: Gaetano Walton MD at 20:51 EST , Service support , Consultations 08/31/19 01:13 Consult: Onc/Wound/sheet metal worker apprentice Routine Comment: Reason for Consult:: Patient with ileostomy Dr. Mae- General Surgery Operations: None Procedures: None Summary of Care Provided: The patient is a 38 year old M admitted 08/30/2019 due to abdominal pain. 1. Small bowel obstruction- Dr. Mae consulted during admission. Patient has history of intermittent bowel obstructions. SBO resolved. Tolerating diet. Follow-up with primary automotive general sales manager. 2. Acute kidney injury-resolved with IV fluids. 3. Crohn's disease status post total colectomy-right lower quadrant ileostomy. Not on medication regimen. 4. Anxiety disorder-on gabapentin for anxiety? 5. Chronic asthma-no exacerbation. As needed albuterol aerosol. 6. Acute sinusitis-Rx for amoxicillin at discharge. General: Alert, Oriented x3, Cooperative HEENT: Atraumatic, PERRLA, EOMI, Normocephalic Neck: Supple, No JVD, Negative Carotid Bruits Lungs: Clear to auscultation, Normal air movement Cardiovascular: Regular rate, Regular Rhythm, Normal S1, Normal S2, No murmurs Abdomen: Bowel Sounds Present, Soft, Non Tender, Non-Distended, - - Ileostomy present Extremities: No clubbing, No cyanosis, No edema, Capillary Refill Less than 3 Seconds Skin: No rashes, No breakdown Musculoskeletal: No Tenderness to Palpation of Joints or Extremities Neurological: Cranial nerves II-XII grossly intact, Neuro grossly intact Psych/Mental Status: Normal Affect, Appropriate Patient seen and examined prior to discharge. Physical assessment as noted above. Patient is stable for discharge with follow up recommendations as noted above. This patient was seen by JAYLENE Garces under the supervision of Dr. Helm. - Physical Exam Vitals/I&O's: Vital Signs Temp Pulse Resp BP Pulse Ox 97.7 F L 68 14 110/71 97 09/01/19 08:40 09/01/19 08:40 09/01/19 08:40 09/01/19 08:40 09/01/19 08:40 Oxygen Delivery Method Room Air Weight: 188 lb 11.451 oz Body Mass Index (BMI) 24.2 Intake and Output for Last 24 Hours 08/30/19 08/31/19 09/01/19 23:59 23:59 23:59 Intake Total 3117 / 3117 2269.0 / 2269.0 Output Total 750 / 750 Balance 3117 / 2917 1519.0 / 1519.0 Laboratory Results 08/31/19 01:55: Urine Opiates Screen POSITIVE H, Urine Methadone Screen NEGATIVE, Ur Barbiturates Screen NEGATIVE, Ur Phencyclidine Scrn NEGATIVE, Ur Amphetamines Screen NEGATIVE, U Methamphetamin-MDMA NEGATIVE, U Benzodiazepines Scrn NEGATIVE, Urine Cocaine Screen NEGATIVE, U Cannabinoids Screen NEGATIVE, Ur Drug Screen Comment 09/01/19 05:38: WBC 7.7, RBC 3.29 L, Hgb 8.9 L, Hct 28.5 L, MCV 86.6, MCH 27.1, MCHC 31.2 L, RDW Std Deviation 44.5 H, RDW Coeff of Nish 14.2, Plt Count 327, MPV 9.3 09/01/19 05:38: Sodium 137, Potassium 3.7, Chloride 107, Carbon Dioxide 27.0, Anion Gap 3 L, BUN 11, Creatinine 0.68 L, Estim Creat Clear Calc 171.25, Est GFR (MDRD) Af Amer 167, Est GFR (MDRD) Non-Af 138, BUN/Creatinine Ratio 16.1, Glucose 100, Calcium 8.3 L Current Medications Acetaminophen (Tylenol) 650 mg PO Q6H PRN PRN PRN Reason: temp 100.4 and above Last Admin: 09/01/19 06:03 Dose: 650 mg Documented by: Glucagon () 1 mg IM .X1 PRN PRN Reason: Hypoglycemia Hydromorphone HCl (Dilaudid Inj) 1 mg IV Q3H PRN PRN PRN Reason: Pain Score 6-10/10 Last Admin: 08/31/19 08:20 Dose: 1 mg Documented by: Dextrose (Dextrose 10%-Water) 250 mls @ 999 mls/hr IV .Q16M PRN; Protocol PRN Reason: HYPOGLYCEMIA Ampicillin Sodium/Sulbactam (Sodium 3 gm/ Sodium Chloride) 112 mls @ 150 mls/hr IV Q6 JOSE Last Infusion: 09/01/19 06:45 Dose: Infused Documented by: Lorazepam (Ativan) 1 mg IV Q6H PRN PRN PRN Reason: ANXIETY Last Admin: 08/31/19 10:12 Dose: 1 mg Documented by: Ondansetron HCl (Zofran) 4 mg IV Q8H PRN PRN PRN Reason: NAUSEA/VOMITING Sodium Chloride () 10 - 40 ml IV UD PRN PRN Reason: SALINE FLUSH Last Admin: 08/31/19 14:36 Dose: 10 ml Documented by: Discharge Diet: No Restrictions - drink more fluids, avoid carbonated beverages Discharge Activity: Return to Normal Activity Return to work on:: 09/06/19 Call your doctor if you observe: Inability to have a bowel movement, Shortness of breath, Dizziness, Fainting spells, Chest pain, Uncontrolled pain Home Medications: Medications to take at Discharge Gabapentin [Neurontin] 600 mg PO TIDCM 08/30/19 Albuterol Inhaler [Ventolin Hfa (SP)] 1 puff INHALATION Q4H PRN PRN 08/31/19 Amoxicillin 500 mg PO Q8 7 Days #21 tab 08/31/19 Budesonide Inhaler 180 mcg [Pulmicort Inhaler 180 mcg] 1 puff INHALATION BID 08/31/19 Following Prescrptions Were Given to Patient: Amoxicillin 500 mg PO Q8 7 Days #21 tab Transmission Status: Received by BETHANY HINOJOSA-1954 [facility] Primary Care Physician: Chris Helms MD [Primary Care Provider] - Please follow up with your Primary Care Physician in: 1 Week Please Follow Up With: Nhi Mae MD When: As needed Disposition: Home Minutes spent on discharge:: 35 Patient Condition:: Stable Medical Necessity - Tobacco Use Smoking Status: Former smoker Tobacco Use: Cigarettes Meaningful Use Info Meaningful Use Diagnoses (Choose all that apply): None applicable <Andrei Helm - Last Filed: 09/01/19 09:49> Hospital Course and Treatment Consultations 08/31/19 01:13 Consult: Onc/Wound/sheet metal worker apprentice Routine Comment: Reason for Consult:: Patient with ileostomy Summary of Care Provided: [] This patient was seen in conjunction with MAGNETIC TAPE TYPEWRITER OPERATORJanny. I have independently interviewed and examined the patient and reviewed pertinent history, examination findings, laboratory and plan of management. I have reviewed the note and agree with the documented findings with the few additional points. In brief, patient is 38-year-old gentleman with history of Crohn's disease status post total colectomy and ileostomy about 11 years ago is admitted with diffuse abdominal pain for about 2 days. Patient denies any change in frequency or amount of ileostomy output. No blood in the ileostomy. 1. Small bowel obstruction: Has mild grade fever while an inpatient. CT abdomen shows moderate fluid distention of the stomach and full length of the small bowel which reported as transition zone in the right upper quadrant. Patient was seen by surgeon. Patient has intermittent ileus but got relieved and resolved. Tolerating diet. Surgeon said okay for discharge. She does not think enteric bacteriology panel, stool for WBC or occult blood needed as there is no suspicion of food poisoning and and he gets frequently ileus Chest x-ray and abdominal x-ray reviewed and does not show acute abnormality. Abdominal x-ray still shows bowel gas shadow. 2. Anxiety disorder and restlessness possible childhood ADHD?hyperactivit. I inquired about the involuntary movement of upper extremity with patient and mother and said it is chronic and he is restless or fidgety. 3. Acute kidney injury most probably secondary to prerenal/fluid safety: BUN/creatinine improving. Other chronic comorbidities asthma as mentioned above I have discussed my assessment with MAGNETIC TAPE TYPEWRITER OPERATORJanny and orders have been reviewed. Discharge medication reconciliation done. Discharge follow-up instructions completed. Discharge process discussed with the patient and all questions were answered to patient's satisfaction. Total time spent, exact 35 minutes on discharge meds reconciliation, examination, coordination of care with nurses and ancillary staff, review of imaging and blood test and discussion with the patient on follow-up instructions Clinical Impression(s) from Imaging Studies Abdomen/Pelvis CT 08/30/19 21:12 IMPRESSION: 1. Moderate fluid distention of the stomach and full length of the small bowel due to a distal obstruction in the right upper quadrant where there is a zone of transition from dilated bowel loop to collapse posterior to the right anterior ostomy tract. Extrinsic adhesions suspected as a source for the zone of transition/narrowing. 2. The bowel within the right anterior abdominal ostomy and leading up to this region is unremarkable. 3. No definite colonic loops seen in the remaining aspects of the abdomen and pelvis. Is there history of total colectomy or subtotal colectomy? 4. No free air or free fluid. 5. Mild interstitial edema is present in the bilateral lung bases. Subjective: Seen and examined. Patient does not have fever last night. Had T-max 101.5 at 6 PM yesterday. Heart rates were 95 at 6 PM. Patient denies any change frequency or volume of ileostomy output. No leukocytosis. - Physical Exam Vitals/I&O's: Vital Signs Temp Pulse Resp BP Pulse Ox 97.7 F L 68 14 110/71 97 09/01/19 08:40 09/01/19 08:40 09/01/19 08:40 09/01/19 08:40 09/01/19 08:40 Oxygen Delivery Method Room Air Weight: 188 lb 11.451 oz Body Mass Index (BMI) 24.2 Intake and Output for Last 24 Hours 08/30/19 08/31/19 09/01/19 23:59 23:59 23:59 Intake Total 3117 / 3117 2269.0 / 2269.0 Output Total 750 / 750 Balance 3117 / 2917 1519.0 / 1519.0 General: Alert, Oriented x3, Cooperative HEENT: Atraumatic, PERRLA, EOMI, Normocephalic Neck: Supple, No JVD, Negative Carotid Bruits Lungs: Clear to auscultation, Normal air movement, No rhonchi, No wheeze, No rales Cardiovascular: Regular rate, Regular Rhythm, Normal S1, Normal S2, No murmurs Abdomen: Bowel Sounds Present, Soft, Non Tender, Hypoactive Bowel Sounds, - - Ileostomy bag. Liquid bile present. Extremities: No edema, Capillary Refill Less than 3 Seconds Skin: No rashes, No breakdown Musculoskeletal: No Tenderness to Palpation of Joints or Extremities Neurological: Cranial nerves II-XII grossly intact Psych/Mental Status: Normal Affect, Appropriate Laboratory Results 08/31/19 01:55: Urine Opiates Screen POSITIVE H, Urine Methadone Screen NEGATIVE, Ur Barbiturates Screen NEGATIVE, Ur Phencyclidine Scrn NEGATIVE, Ur Amphetamines Screen NEGATIVE, U Methamphetamin-MDMA NEGATIVE, U Benzodiazepines Scrn NEGATIVE, Urine Cocaine Screen NEGATIVE, U Cannabinoids Screen NEGATIVE, Ur Drug Screen Comment 09/01/19 05:38: WBC 7.7, RBC 3.29 L, Hgb 8.9 L, Hct 28.5 L, MCV 86.6, MCH 27.1, MCHC 31.2 L, RDW Std Deviation 44.5 H, RDW Coeff of Nish 14.2, Plt Count 327, MPV 9.3 09/01/19 05:38: Sodium 137, Potassium 3.7, Chloride 107, Carbon Dioxide 27.0, Anion Gap 3 L, BUN 11, Creatinine 0.68 L, Estim Creat Clear Calc 171.25, Est GFR (MDRD) Af Amer 167, Est GFR (MDRD) Non-Af 138, BUN/Creatinine Ratio 16.1, Glucose 100, Calcium 8.3 L Current Medications Acetaminophen (Tylenol) 650 mg PO Q6H PRN PRN PRN Reason: temp 100.4 and above Last Admin: 09/01/19 06:03 Dose: 650 mg Documented by: Glucagon () 1 mg IM .X1 PRN PRN Reason: Hypoglycemia Hydromorphone HCl (Dilaudid Inj) 1 mg IV Q3H PRN PRN PRN Reason: Pain Score 6-10/10 Last Admin: 08/31/19 08:20 Dose: 1 mg Documented by: Dextrose (Dextrose 10%-Water) 250 mls @ 999 mls/hr IV .Q16M PRN; Protocol PRN Reason: HYPOGLYCEMIA Ampicillin Sodium/Sulbactam (Sodium 3 gm/ Sodium Chloride) 112 mls @ 150 mls/hr IV Q6 JOSE Last Infusion: 09/01/19 06:45 Dose: Infused Documented by: Lorazepam (Ativan) 1 mg IV Q6H PRN PRN PRN Reason: ANXIETY Last Admin: 08/31/19 10:12 Dose: 1 mg Documented by: Ondansetron HCl (Zofran) 4 mg IV Q8H PRN PRN PRN Reason: NAUSEA/VOMITING Sodium Chloride () 10 - 40 ml IV UD PRN PRN Reason: SALINE FLUSH Last Admin: 08/31/19 14:36 Dose: 10 ml Documented by: Code Visit Inpatient E&M: [id number] Disch Hosp
== END 2019-09-01 11:48 | disposition home or self-care (01) | DRG 389 ==
LOC: ED 21:21 → MS3 08-31 01:53
PROVIDERS: Nurse Practitioner Family; Admitting Provider Hospitalist; Emergency Provider Emergency Medicine; PCP Internal Medicine; Visit Provider Internal Medicine
DX: K56.600 Partial intestinal obstruction, unspecified as to cause (principal); K50.90 Crohn's disease, unspecified, without complications; N17.9 Acute kidney failure, unspecified; F41.9 Anxiety disorder, unspecified; Z90.49 Acquired absence of other specified parts of digestive tract; J45.909 Unspecified asthma, uncomplicated; Z93.2 Ileostomy status; J01.90 Acute sinusitis, unspecified; Z87.891 Personal history of nicotine dependence
CPT/HCPCS: 36415; 71046; 74019; 74177; 80048; 80053; 80307; 81001; 83605; 83690; 85025; 85027; 94640; 99284; J7030; Q9967; A4216; J0295; J2405

== ENCOUNTER 2019-11-11 13:30 | Emergency (ER) | payer OTHER, SELFPAY ==
[2019-08-31 01:14] VITALS: BMI 24.2
[2019-11-11] VITALS (10 sets, daily range): BP systolic 118–130; BP diastolic 82–95; PULSE 61–72; RESP 12–18; TEMP 36.9; O2SAT 96–98; BMI 22.4
[2019-11-11 14:28] LABS: Absolute Lymphocyte Count 1.15 X10^3/uL (0.83-4.51); Absolute Neutrophil Count 1.7 X10^3/uL (2.0-7.7); Basophil# 0.02 X10^3/uL; Basophil% 0.6 % (0-1); Eosinophil# 0.03 X10^3/uL; Hematocrit 39.3 % (40-54); Hemoglobin 12.6 g/dL (13.0-16.5); Lymphocyte # 1.15 X10^3/ul (4.0); Lymphocyte % 36.7 % (19-41); Mean Corp Hgb Conc 32.1 g/dL (32-36); Mean Corpuscular Hgb 27.8 pg (27.0-32.0); Mean Corpuscular Volume 86.8 fL (80-94); Mean Platelet Vol. 8.4 fl (6.2-12.0); Monocyte# 0.22 X10^3/uL; NRBC Flagged by Analyzer 0 % (0-5); Neutrophil % 54.4 % (47-70); Platelet Count 308 K/mm3 (150-450); RBC Distribution Width CV 17.2 % (11.6-14.6); RBC Distribution Width SD 54.8 fl (35.1-43.9); Red Blood Count 4.53 M/mm3 (4.6-6.2); White Blood Count 3.1 K/mm3 (4.4-11.0)
[2019-11-11 14:39] LABS: Anion Gap 8 (5-15); BUN 10 mg/dL (7-18); BUN/Creat Ratio 10.6 RATIO (10-20); Calcium,Total 8.6 mg/dL (8.5-10.1); Chloride 108 mmol/L (98-107); Creatinine, Serum 0.94 mg/dL (0.70-1.30); EST Glomerular Filtration Rate 95 mL/min (>60); Est Glom Filt Rate - Afr Amer 115 mL/min (>60); Estimated Creatinine Clearance 118.46 ml/min; Glucose 104 mg/dL (74-106); Potassium 3.7 mmol/L (3.5-5.1); Sodium Level 144 mmol/L (136-145)
--- NOTE | 2019-11-11 15:24 | ED.VIS.PSYCH ---
History of Present Illness Informant: Patient Limited: Intoxicated Onset: Month(s) - 1 month Context: Gradual Onset Conflict: Family, Work, Financial Timing: Continuous Current Severity: Severe Maximum Severity: Severe Worsened by: Situational factors, Alcohol intoxication Relieved by: nothing Associated Symptoms: Depressed, Change in sleeping, Decreased Interest, Suicidal Thoughts Narrative: 39-year-old male history of depression presents to the emergency department because he states he is having trouble sleeping. He states that secondary to the current pandemic he is having trouble sleeping over the last month he has been having virtual visits with his primary care physician who has been prescribing him different medicines. Initially prescribed Ativan which did not help then Ambien then trazodone and Neurontin. He is currently taking the Ambien and trazodone every night Ativan as needed and Neurontin 3 times a day. He is also been drinking alcohol heavily for the last 2 weeks. He states 4-6 beers per day. Last drink was 18 hours ago. He is having thoughts where he does not want to wake up but no specific thoughts of taking his own life. He is not attempted to take his own life. No homicidal ideation. Prior similar symptoms: Yes Recent Illness/Hospitalization: No <Jose Leonard - Last Filed: 11/11/19 15:24> <Derick De La Fuente - Last Filed: 11/11/19 19:48> Chief Complaint: Suicidal Past Medical History Prior records reviewed: Yes Past Medical History: - - depression and anxiety, Crohn's disease history of alcohol abuse Surgical History: - - Total colectomy; ileostomy; multiple abdominal surgeries. Lives: With Family Smoking Status: Current every day smoker Alcohol: Occasional Drugs: None - Family History Maternal Family History: Reports: Diabetes Paternal Family History: Reports: Cancer - Colon cancer and breast cancer <Jose Leonard - Last Filed: 11/11/19 15:24> <Derick De La Fuente - Last Filed: 11/11/19 19:48> - Allergies and Home Meds Allergies/Adverse Reactions: Allergies No Known Allergies Allergy (Verified 11/11/19 13:31) Primary Care Physician: Chris Helms MD [Primary Care Provider] - Review of Systems All systems negative except as indicated General: Denies: Chills, Fever, Malaise Eyes: Denies: Visual changes - bilaterally, Blurred Vision - bilaterally, Diplopia ENT: Denies: Rhinorrhea, Sore throat Cardiovascular: Denies: Chest pain, Palpitations, Heart racing Respiratory: Denies: Dyspnea, Cough, Sputum Gastrointestinal: Denies: Abdominal pain, Nausea, Vomiting, Diarrhea Genitourinary: Denies: Dysuria, Hematuria, Frequency Musculoskeletal: Denies: Myalgias, Arthralgias, Neck pain, Back pain, Swelling, Extremity Pain Skin: Denies: Rash, Abscess, Abrasions, Wounds Neurological: Denies: Headache, Weakness, Parasthesia, Numbness Psych: Reports: Depression, Suicidal thoughts, Suicidal ideations. Denies: Anxiety <Jose Leonard - Last Filed: 11/11/19 15:24> Physical Exam Vital Signs/Narrative: Vital Signs Temp Pulse Resp BP Pulse Ox 11/11/19 13:31 98.5 F 72 15 130/95 H 98 Inital Vital Signs reviewed: Yes General: Well nourished, Well developed, - - Clearly intoxicated Head: Normocephalic, Atraumatic Eyes: Perrl, EOMI ENT: Moist mucous membranes Neck: Supple, Nontender, No lymphadenopathy, No JVD Cardiovascular: Regular rate, Regular rhythm, No murmurs Respiratory: No distress, CTA bilaterally, Chest nontender Abdomen: Soft, Nontender, Nondistended, Normal bowel sounds, No masses Back: Nontender, Normal Inspection Extremities: Nontender, No Edema Skin: Normal color, No rash, No Trauma Neurological: Alert, Oriented x3, - - No focal neurological deficits Psych: Normal Speech Pattern, Logical sequential goal directed thoughts, Normal Appearance, Depressed, Suicidal thoughts, Poor Insight, Poor Judgement <Jose Leonard - Last Filed: 11/11/19 15:24> Vital Signs/Narrative: Vital Signs Pulse Resp BP Pulse Ox 11/11/19 18:35 70 16 126/84 H 97 11/11/19 17:00 15 11/11/19 16:00 18 11/11/19 15:47 18 <Derick De La Fuente - Last Filed: 11/11/19 19:48> Diagnostic/Tx/Re-eval I supervised the PA and have performed my own pertinent history and physical. Results and treatment plan were discussed. HPI: Patient reports that he has been having a difficult time sleeping and feels depressed and anxious since COVID-19 has hit. He does admit that he has been drinking much more than usual and he is having suicidal thoughts. PE: Vitals: Stable. Afebrile. General: Well-nourished and well-developed. Head: Normocephalic atraumatic. Neck: Supple, no lymphadenopathy. No JVD. Nontender. Cardiovascular: Regular rate and rhythm. No murmurs. Respiratory: No respiratory distress. Clear to auscultation bilaterally. Abdominal: Soft, nontender, nondistended, normal bowel sounds. No guarding, rebound, or peritoneal signs. Back: Nontender. Extremities: Nontender, no edema. Skin: Normal color, no rash. Neurologic: Alert and oriented ?3. Cranial nerves II through XII are intact. Normal strength and sensation. Mental status exam: Patient appears their stated age. Good posture and grooming. Good eye contact. Normal rate, volume, and latency of speech. No homicidal ideation. No auditory or visual hallucinations. Flow of thought is logical. Insight and judgment is fair. Emergency Department course: The patient is intoxicated. He is unable to contract for safety. Treatment Plan: Patient will be observed until sober. He will then be seen by a counselor for further evaluation. Disposition: Pending: This note was generated with [employer] dictation software. It may contain incorrect words, spelling, and punctuation that were not noted in review of the chart prior to signing. <Derick De La Fuente - Last Filed: 11/11/19 19:48> ED Disposition <Jose Leonard - Last Filed: 11/11/19 15:24> <Derick De La Fuente - Last Filed: 11/11/19 19:48> - Plan for ED Patient: Diagnosis: Alcohol intoxication, Suicidal ideation Referrals: Chris Helms MD [Primary Care Provider] -
[2019-11-11 15:41] LABS: Amphetamine Urine VISTA NEGATIVE (<1000 ng/mL); Barbiturate Urine VISTA NEGATIVE (< 200 ng/mL); Benzodiazepine Urine VISTA NEGATIVE (< 200 ng/mL); Cocaine Urine VISTA NEGATIVE (< 300 ng/mL); Ecstacy Urine VISTA NEGATIVE (< 500 ng/mL); Methadone Urine VISTA NEGATIVE (< 300 ng/mL); PCP Urine VISTA NEGATIVE (< 25 ng/mL); THC Urine VISTA NEGATIVE (< 50 ng/mL); Vista UDS pH Range 6
--- NOTE | 2019-11-11 19:00 | ED.RN ---
pt given meal tray and provided with extra water and cell phone. pt does not need to use restroom at this time. pt calm and cooperative and understands we are awaiting for ETOH level to come down before crisis will see him
[2019-11-11] MEDS: Ziprasidone IM 20 MG/ML VIAL IM (21:10)
[2019-11-12] VITALS (7 sets, daily range): BP systolic 132–136; BP diastolic 68–95; PULSE 66–89; RESP 12–18; O2SAT 95–99
--- NOTE | 2019-11-12 07:07 | ED.RN ---
FAXED ALCOHOL REDRAW TO [facility]
--- NOTE | 2019-11-12 07:49 | ED.VISSUMM ---
- ER Visit Summary Date of Service: 11/12/19 Chief Complaint: [Addendum to initial dictation] History of Present Illness: The patient is a 39 M [presents to the emergency department with alcohol intoxication and suicidal ideation. Care of patient was turned over to me awaiting normalization of alcohol and evaluation by crisis. Patient's been in the emergency department for 18 hours at this time. Patient was seen by crisis over the telephone and interviewed. Patient denied being suicidal at this time and has no plan on harming himself. Patient feels comfortable going home.] Physical Examination: [] Test Results: [] Emergency Department Course and Treatment: [Patient was evaluated by crisis and interviewed and he can contract for safety. Patient will follow-up with crisis and his primary care physician. He does not think that stopping alcohol intake will be a problem as he is not a regular drinker other than he is been drinking more over the last 2 weeks to self medicate to help him sleep.] Treatment Plan: [Discharged home in stable condition. Patient to follow-up with his primary care physician. Patient to follow-up with [facility].] Disposition: [Discharged] Impression: [Depression Alcohol abuse Insomnia Anxiety] This note was generated with [employer] dictation software. It may contain incorrect words, spelling, and punctuation that were not noted in review of the chart prior to signing ED Disposition - Plan for ED Patient: Diagnosis: Alcohol intoxication, Suicidal ideation Referrals: Chris Helms MD [Primary Care Provider] -
--- NOTE | 2019-11-12 07:51 | ED.DEP ---
ED Disposition - Plan for ED Patient: Diagnosis: Alcohol intoxication, Suicidal ideation Instructions: CONTRACT, No Harm, ED Depression Referrals: Chris Helms MD [Primary Care Provider] - 3-5 Days
== END 2019-11-12 07:56 | disposition home or self-care (01) ==
LOC: ED 15:44
PROVIDERS: Emergency Medicine; Emergency Provider Physician Assistant Medical; PCP Internal Medicine
DX: F10.129 Alcohol abuse with intoxication, unspecified (principal); R45.851 Suicidal ideations; F17.200 Nicotine dependence, unspecified, uncomplicated; F32.9 Major depressive disorder, single episode, unspecified; G47.00 Insomnia, unspecified; F41.9 Anxiety disorder, unspecified
CPT/HCPCS: 36415; 80048; 80307; 80320; 85025; 96372; 99282; G0480; J3486

== ENCOUNTER 2020-01-07 16:45 | Emergency (ER) | payer OTHER, SELFPAY ==
[2019-11-11 13:31] VITALS: BMI 22.4
[2020-01-07 16:47] VITALS: BP 155/108; PULSE 87; RESP 18; TEMP 36.9; O2SAT 97; BMI 23.0
--- NOTE | 2020-01-07 16:52 | NURSING ---
NO OLD EKGS
--- NOTE | 2020-01-07 17:25 | CT_ITS ---
STUDY: CT BRAIN WITHOUT CONTRAST REASON FOR EXAM: Male, 39 years old. @ WORK, GOT HOT, SWEATY, HAD EPISODE OF SYNCOPE, TEMP 101.4 RADIATION DOSAGE (If Supplied By Facility): CTDIvol = ( 44.99 ) mGy, DLP = ( 779.24 ) mGycm TECHNIQUE: Transaxial CT imaging of the brain was performed without administration of intravenous contrast material. Individualized dose optimization techniques were used for this CT. COMPARISON: No relevant priors. FINDINGS: Normal soft tissue structures. Normal calvarium. There is asymmetry of the ventricles consistent with an anatomic variant. Normal white matter tracts of the cerebral hemispheres. Normal basal ganglia and thalami. Normal brainstem. Normal cerebellum. There is no intracranial hemorrhage. There are no findings of an acute ischemic infarction. Bilateral sphenoid sinus disease. CT/Brain/Head without Contrast IMPRESSION: No CT evidence of acute brain pathology. Electronically Signed: Mac Collins MD at 17:48 EDT Tel , Service support ,
--- NOTE | 2020-01-07 17:25 | EKG12_ITS ---
Test Reason : SYNCOPE Blood Pressure : / mmHG Vent. Rate : 084 BPM Atrial Rate : 084 BPM P-R Int : 238 ms QRS Dur : 154 ms QT Int : 448 ms P-R-T Axes : 051 049 046 degrees QTc Int : 529 ms Sinus rhythm with 1st degree A-V block Non-specific intra-ventricular conduction block Abnormal ECG Confirmed by JING MCKINLEY, TANIKA ([id number]), publications editor XIMENA BARROSO ([id number]) on 01/11/2020 11:06:15 AM Referred By: MANDA Confirmed By:TANIKA CH MD
[2020-01-07] MEDS: 0.9% Normal Saline 1,000 ML 1000 ML IV (17:28)
[2020-01-07 17:36] LABS: Absolute Lymphocyte Count 1.28 X10^3/uL (0.83-4.51); Absolute Neutrophil Count 3.8 X10^3/uL (2.0-7.7); Basophil# 0.03 X10^3/uL; Basophil% 0.5 % (0-1); Eosinophil# 0.04 X10^3/uL; Eosinophils% 0.7 % (0-5); Hematocrit 34.3 % (40-54); Lymphocyte # 1.28 X10^3/ul (4.0); Lymphocyte % 23.3 % (19-41); Mean Corp Hgb Conc 32.1 g/dL (32-36); Mean Corpuscular Volume 87.3 fL (80-94); Mean Platelet Vol. 9.5 fl (6.2-12.0); Monocyte# 0.35 X10^3/uL; Monocyte% 6.4 % (0-10); NRBC Flagged by Analyzer 0 % (0-5); Neutrophil # 3.78 X10^3/uL (2.7-7.7); Neutrophil % 68.9 % (47-70); Platelet Count 380 K/mm3 (150-450); RBC Distribution Width CV 16.2 % (11.6-14.6); RBC Distribution Width SD 51.7 fl (35.1-43.9); Red Blood Count 3.93 M/mm3 (4.6-6.2); White Blood Count 5.5 K/mm3 (4.4-11.0)
--- NOTE | 2020-01-07 17:36 | RAD_ITS ---
STUDY: X-RAY CHEST REASON FOR EXAM: Male, 39 years old. 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 COMPARISON: 08/31/2019 FINDINGS: The lungs are clear and expanded. There is no demonstrated pleural abnormality. Normal size heart. Normal mediastinum and valentino. Normal visualized pulmonary arteries. Normal visualized aortic arch and descending thoracic aorta. Normal visualized thoracic spine. Normal visualized ribs, clavicles, and shoulders. There is no demonstrated abnormality of the visualized soft tissue structures of the upper abdomen. RAD/Chest 1 View (Portable) IMPRESSION: Normal x-ray examination of the chest. Electronically Signed: Mac Collins MD at 18:05 EDT Tel , Service support ,
[2020-01-07 17:52] LABS: ALB/GLOB Ratio 0.8 RATIO (0.9-2.4); AST(SGOT) 24 U/L (15-37); Alanine Aminotransfer ALT/SGPT 18 U/L (16-61); Albumin, Serum 3.4 g/dL (3.2-5.0); Alkaline Phosphatase 97 U/L (45-117); Anion Gap 9 (5-15); BUN 10 mg/dL (7-18); BUN/Creat Ratio 9.9 RATIO (10-20); Calcium,Total 8.3 mg/dL (8.5-10.1); Chloride 104 mmol/L (98-107); Creatinine, Serum 1.01 mg/dL (0.70-1.30); EST Glomerular Filtration Rate 87 mL/min (>60); Est Glom Filt Rate - Afr Amer 106 mL/min (>60); Estimated Creatinine Clearance 113.06 ml/min; Globulin 4.3 g/dL (2.2-4.2); Glucose 92 mg/dL (74-106); Potassium 3.3 mmol/L (3.5-5.1); Protein, Total 7.7 g/dL (6.4-8.2); Sodium Level 139 mmol/L (136-145)
--- NOTE | 2020-01-07 18:22 | ED.VIS.GEN ---
History of Present Illness Chief Complaint: Syncope Narrative: Patient presents after a syncopal episode, he was working in a very hot factory became lightheaded and had a syncopal episode. He denies chest pain or shortness of breath he denies palpitations. He has no pleuritic component he has no DVT or PE risk factors he denies any leg pain or calf pain no lower extremity edema. He denies any recent fever chills cough or congestion. He has no nausea or vomiting he now feels improved. Past Medical History - Allergies and Home Meds Allergies/Adverse Reactions: Allergies No Known Allergies Allergy (Verified 01/07/20 16:50) Primary Care Physician: Chris Helms MD [Primary Care Provider] - Past Medical History: - - Crohn's disease Surgical History: - - Total colectomy; ileostomy; multiple abdominal surgeries. Smoking Status: Never smoker - Family History Maternal Family History: Reports: Diabetes Paternal Family History: Reports: Cancer - Colon cancer and breast cancer Review of Systems All systems negative except as indicated General: Reports: - - Syncope as in HPI. Denies: Fever Eyes: Denies: Visual changes - bilaterally Cardiovascular: Denies: Chest pain Respiratory: Denies: Dyspnea, Cough Gastrointestinal: Denies: Abdominal pain, Nausea, Vomiting Genitourinary: Denies: Dysuria Musculoskeletal: Denies: Myalgias, Arthralgias, Neck pain Skin: Denies: Rash Neurological: Denies: Headache, Weakness Psych: Denies: Depression Endocrine: Denies: Polyuria, Polydipsia Physical Exam Vital Signs/Narrative: Vital Signs Temp Pulse Resp BP Pulse Ox 01/07/20 16:47 98.5 F 87 18 155/108 H 97 General: Well nourished, Well developed Head: Normocephalic Eyes: Perrl, EOMI ENT: Dry mucous membranes Neck: Supple Cardiovascular: Regular rate, Regular rhythm Respiratory: No distress, CTA bilaterally Abdomen: Soft, Nontender, - - Ostomy bag intact Back: Nontender, Normal Inspection Extremities: Nontender, No edema Skin: Normal color, No rash Neurological: Alert, Oriented x3, Cranial nerves II-XII grossly intact, Normal Strength Psychological: Normal affect Diagnostic/Tx/Re-eval - Rhythm Strip Rhythm Strip: Sinus Rhythm Rate: 84 Ectopy: None - EKG Initial EKG Interpretation: - - Normal sinus rhythm with a rate of 84. Prolonged SD interval at 238. Slightly prolonged QTc interval at 529. Intraventricular conduction delay. Interpreted by emergency doctor - Medical Decision Making Patient presents with syncopal episode, likely secondary to heat exhaustion, after IV fluids and and emergency department stay significantly improved he looks much better, his work-up is unremarkable. He has no muscle aches. I will discharge him in stable condition. ED Disposition - Plan for ED Patient: Disposition: [facility] Hospital or Unit Diagnosis: Syncope, Heat exhaustion Instructions: ED Fainting Uncertain Cause, ED Exhaustion Heat Referrals: Chris Helms MD [Primary Care Provider] - 3-5 Days
[2020-01-07 21:30] VITALS: PULSE 89
[2020-01-12 16:08] LABS: Creatine Kinase BB 0 % (0); Creatine Kinase MB 0 % (0-3); Creatine Kinase MM 98 % (97-100); Macro II 0 % (Not Observed)
[2020-01-15 17:46] LABS: Creatine Kinase,Total,Serum 323 U/L (49-439); Macro I 2 % (Not Observed)
== END 2020-01-07 21:30 | disposition home or self-care (01) ==
PROVIDERS: Emergency Provider Emergency Medicine; PCP Internal Medicine
DX: R55 Syncope and collapse (principal); T67.5XXA Heat exhaustion, unspecified, initial encounter
CPT/HCPCS: 70450; 71045; 80053; 82550; 82552; 85025; 93005; 99285; J7030; A4216

== ENCOUNTER 2020-04-15 20:43 | Inpatient (IN) | payer OTHER, SELFPAY ==
[2020-04-15 20:44] VITALS: BP 154/104; PULSE 97; RESP 16; TEMP 37.2; O2SAT 97; BMI 22.6
--- NOTE | 2020-04-15 22:08 | EKG12_ITS ---
Test Reason : MHC Blood Pressure : / mmHG Vent. Rate : 090 BPM Atrial Rate : 090 BPM P-R Int : 248 ms QRS Dur : 144 ms QT Int : 442 ms P-R-T Axes : 040 046 015 degrees QTc Int : 540 ms Sinus rhythm with 1st degree A-V block Non-specific intra-ventricular conduction block Abnormal ECG Confirmed by ARSENIO MCKINLEY, MATTHEW ([id number]), editor publications XIMENA BARROSO ([id number]) on 04/19/2020 10:00:27 AM Referred By: Claude Fields Confirmed By:MATTHEW CESAR MD
--- NOTE | 2020-04-15 22:17 | ED.VIS.GEN ---
History of Present Illness Chief Complaint: Mental Health Informant: Patient, Family Narrative: Patient is a 39-year-old male who presents to the emergency department this father for hallucinations. Patient apparently has been seeing people and talking to them that have not been there. He has had some recent medication changes. He is on Remeron and Paxil. He has gone up on the Paxil dose. His psychiatrist also added a medication to help him sleep better. 1 of the family friends thought he might be having a serotonin syndrome so they brought into the hospital. He denies having any fevers or chills. He denies any thoughts of harming himself or anybody else. Otherwise feels pretty good. The father who is at bedside states that he called him to check on him today. The patient would get very agitated very easily. He would focus on things that they were talking about including a pen that was holding in his hand. The patient the family was talking about other things and whenever they denied this he became upset with him. A few days ago he did have a few episodes of vomiting but otherwise denies any nausea/vomiting now. No change in bowel habits. No urinary symptoms. Denies any headache or vision changes. No chest pain or shortness of breath. Past Medical History - Allergies and Home Meds Allergies/Adverse Reactions: Allergies No Known Allergies Allergy (Verified 04/15/20 20:48) Past Medical History: - - Crohn's disease, asthma Surgical History: - - Total colectomy; ileostomy; multiple abdominal surgeries. Smoking Status: Unknown if ever smoked - Family History Maternal Family History: Reports: Diabetes Paternal Family History: Reports: Cancer - Colon cancer and breast cancer Review of Systems All systems negative except as indicated General: Denies: Chills, Fever, Sweats Eyes: Denies: Visual changes - bilaterally, Diplopia ENT: Denies: Rhinorrhea, Sore throat Cardiovascular: Denies: Chest pain, Palpitations Respiratory: Denies: Dyspnea, Cough, Dyspnea on exertion Gastrointestinal: Denies: Abdominal pain, Nausea, Vomiting, Diarrhea, Melena, Hematochezia Genitourinary: Denies: Dysuria, Hematuria, Frequency Musculoskeletal: Denies: Back pain, Extremity Pain Skin: Denies: Rash, Wounds Neurological: Denies: Headache, Weakness, Numbness Psych: Denies: Suicidal thoughts, Suicidal ideations Physical Exam Vital Signs/Narrative: Vital Signs Temp Pulse Resp BP Pulse Ox 04/15/20 20:44 99.0 F 97 16 154/104 H 97 Inital Vital Signs reviewed: Yes General: Well nourished, Well developed, No Acute Distress Head: Normocephalic, Atraumatic Eyes: Perrl, EOMI ENT: Moist mucous membranes, No rhinorrhea Neck: Supple, Nontender Cardiovascular: Regular rate, Regular rhythm, No murmurs Respiratory: No distress, CTA bilaterally, Chest nontender Abdomen: Soft, Nontender, Nondistended, Normal bowel sounds Back: Nontender, Normal Inspection Extremities: Nontender, No edema Skin: Normal color, No rash Neurological: Alert, Oriented x3, Cranial nerves II-XII grossly intact, Normal Strength, Normal Sensation Psychological: Normal affect, Normal Mood Diagnostic/Tx/Re-eval - EKG Initial EKG Interpretation: - - Rate of 90 bpm and normal sinus rhythm. There is a prolonged LA interval of 248. QTc interval of 540. QRS of 144. Patient does have some ST-T segment changes in the anterior leads. No reciprocal depressions. His prior EKG for comparison which was performed January 062019 is similar in appearance with intervals and ST changes. - Medical Decision Making Patient presents to the emergency department for hallucinations as well as labile mood. Upon arrival to the emergency department vital signs within normal limits except mild hypertension. He is alert and oriented and cooperative with exam. He does not appear in any acute distress. Will check basic lab work and have crisis evaluate the patient. Patient's lab work showed his creatinine to be elevated. He has never had this have a creatinine before in the past. His sodium is also mildly low. CK was then ordered which was high. It appears the patient is in rhabdomyolysis. This could be medication related. Patient does not know the name of his psychiatrist and I am unable to contact them to figure out a medication adjustment. In the meantime we will need to bring into the hospital for further evaluation and management. He started on IV fluids. His dad was made aware of this. Patient is agreeable with this plan. He otherwise has been stable throughout ED stay. Not having any active hallucinations or suicidal thoughts in the ED. ED Disposition - Plan for ED Patient: Disposition: Acute Care Hospital [facility] Diagnosis: Rhabdomyolysis, Acute kidney injury, Hyponatremia, Hallucinations
[2020-04-15 22:28] LABS: Absolute Lymphocyte Count 1.54 X10^3/uL (0.83-4.51); Absolute Neutrophil Count 9.8 X10^3/uL (2.0-7.7); Basophil# 0.04 X10^3/uL; Basophil% 0.3 % (0-1); Eosinophil# 0.11 X10^3/uL; Eosinophils% 0.9 % (0-5); Hematocrit 33.7 % (40-54); Hemoglobin 11.1 g/dL (13.0-16.5); Lymphocyte # 1.54 X10^3/ul (4.0); Lymphocyte % 12.2 % (19-41); Mean Corp Hgb Conc 32.9 g/dL (32-36); Mean Corpuscular Hgb 28.6 pg (27.0-32.0); Mean Corpuscular Volume 86.9 fL (80-94); Mean Platelet Vol. 9.5 fl (6.2-12.0); Monocyte# 1.15 X10^3/uL; Monocyte% 9.1 % (0-10); NRBC Flagged by Analyzer 0 % (0-5); Neutrophil # 9.75 X10^3/uL (2.7-7.7); Neutrophil % 76.9 % (47-70); Platelet Count 486 K/mm3 (150-450); RBC Distribution Width CV 13.9 % (11.6-14.6); RBC Distribution Width SD 44.1 fl (35.1-43.9); Red Blood Count 3.88 M/mm3 (4.6-6.2); White Blood Count 12.7 K/mm3 (4.4-11.0)
[2020-04-15 22:45] LABS: ALB/GLOB Ratio 0.9 RATIO (0.9-2.4); AST(SGOT) 82 U/L (15-37); Alanine Aminotransfer ALT/SGPT 27 U/L (16-61); Albumin, Serum 3.9 g/dL (3.2-5.0); Alkaline Phosphatase 78 U/L (45-117); Anion Gap 10 (5-15); BUN 41 mg/dL (7-18); BUN/Creat Ratio 20.2 RATIO (10-20); Calcium,Total 8.5 mg/dL (8.5-10.1); Chloride 99 mmol/L (98-107); Creatinine, Serum 2.03 mg/dL (0.70-1.30); EST Glomerular Filtration Rate 39 mL/min (>60); Est Glom Filt Rate - Afr Amer 47 mL/min (>60); Estimated Creatinine Clearance 55.28 ml/min; Globulin 4.3 g/dL (2.2-4.2); Glucose 94 mg/dL (74-106); Potassium 3.6 mmol/L (3.5-5.1); Protein, Total 8.2 g/dL (6.4-8.2); Sodium Level 129 mmol/L (136-145)
[2020-04-15 22:51] LABS: Alcohol, Blood (Medical)-Serum < 3.0 mg/dL
[2020-04-15 23:13] LABS: Bacteria 0 SEEN /hpf (None Seen); Mucous, Urine 0 SEEN /hpf (<or=2+); Squamous Epithelial Cells - UA 0 SEEN /hpf (0-5); White Blood Cells 0 SEEN /hpf (0-5)
[2020-04-15 23:17] LABS: Color, Urine Yellow (Yellow); Glucose, Dipstick Normal (Normal); Ketone-Dipstick Negative (Negative); Leukocyte Esterase-Dipstick Negative /ul (Negative); Nitrite-Dipstick Negative (Negative); Occult Blood-Urine 150 /ul (Negative); Protein-Dipstick 30 mg/dl (Negative); Urine Bilirubin Dipstick Negative (Negative); Urine Clarity Clear (Clear); Urine Urobilinogen Normal (Normal)
[2020-04-15 23:24] LABS: Red Blood Cells-Urine 0-5 SEEN /hpf (0-5)
[2020-04-15 23:27] LABS: Amphetamine Urine VISTA NEGATIVE (<1000 ng/mL); Barbiturate Urine VISTA NEGATIVE (< 200 ng/mL); Benzodiazepine Urine VISTA NEGATIVE (< 200 ng/mL); Cocaine Urine VISTA NEGATIVE (< 300 ng/mL); Ecstacy Urine VISTA NEGATIVE (< 500 ng/mL); Methadone Urine VISTA NEGATIVE (< 300 ng/mL); PCP Urine VISTA NEGATIVE (< 25 ng/mL); THC Urine VISTA NEGATIVE (< 50 ng/mL); Vista UDS pH Range 6
[2020-04-15] MEDS: 0.9% Normal Saline 1,000 ML 999 ML IV (23:37)
[2020-04-15 23:54] LABS: CPK Total, Creatine Kinase 2717 U/L (39-308)
[2020-04-16] VITALS (8 sets, daily range): BP systolic 111–151; BP diastolic 59–104; PULSE 73–92; RESP 15–20; TEMP 36.7–37.9; O2SAT 95–98; BMI 22.6
--- NOTE | 2020-04-16 00:03 | HP.PCM_ITS ---
Problem List (1) Rhabdomyolysis Status: Acute (2) Acute kidney injury Status: Acute (3) Hyponatremia Status: Acute (4) Hallucinations Status: Acute History of Present Illness Date of Admission: 04/16/20 Chief Complaint: Hallucinations. The patient is a 39 year old M with a significant history of Crohn's disease; anxiety; and ileostomy who presents emergency department with hallucinations that started a the day before presentation. Reportedly patient has been having auditory hallucinations. He has been conversing with people who are not present. He reported that in the past when he felt tired he had hallucinations but not as frequent as present. Reportedly in the last 2 weeks his Paxil was increased from 40 mg to 60 mg. His Paxil was prescribed by his PCP. Also patient's saw Dr. Bermeo for sleep disorder and was prescribed mirtazapine to help him sleep. He feels anxious. Patient friends/family thought that patient may be having serotonin syndrome. Past Medical History Medical History: Medical History (Last Reviewed 04/16/20 @ 02:[address] Claude Fields MD) Asthma J45.909 Crohn's disease K50.90 Allergies No Known Allergies Allergy (Verified 04/15/20 20:48) Home Medications: Ambulatory Orders Medication Instructions Recorded Albuterol Inhaler [Ventolin Hfa 1 puff INHALATION Q4H PRN PRN 08/31/19 (SP)] Budesonide Inhaler 180 mcg 1 puff INHALATION BID 08/31/19 [Pulmicort Inhaler 180 mcg] Paroxetine [Paxil] 60 mg PO DAILY 11/11/19 Mirtazapine [Remeron] 15 mg PO QHS 04/15/20 Surgical History: - - Total colectomy; ileostomy; multiple abdominal surgeries. Smoking Status: Former smoker - *Family History Maternal History Items: Diabetes Paternal History Items: Cancer - Colon cancer and breast cancer Review of Systems Constitutional: Denies: Chills, Fever, Weight Change HEENT: Denies: Head Aches, Sinus Congestion, Sinus Drainage Cardiovascular: Denies: Chest Pain, Palpitations Respiratory: Denies: Cough, Shortness of breath at rest, Sputum production Gastrointestinal: Denies: Abdominal Pain, Nausea, Vomiting Genitourinary: Denies: Dysuria Musculoskeletal: Denies: Joint Pain, Joint Tenderness Skin: Denies: Rash, Wounds Neurological: Denies: Numbness, Tingling, Focal weakness Psychiatric: Reports: Anxiety. Denies: Depression, Homicidal Ideations, Suicidal Ideations Hematologic/ Lymphatic: Denies: Easy Bruising, Easy Bleeding VTE Information - Inpt Only VTE Present on Admission: No VTE Mechan Device Prophylaxis: None VTE Pharm Prophylaxis ordered?: Yes Patient Problems: Active and Suspected Problems (Last Reviewed 04/16/20 @ 02:[address] Claude Fields MD) Rhabdomyolysis (Acute) Acute kidney injury (Acute) Hyponatremia (Acute) Hallucinations (Acute) - Physical Exam Vitals/I&O's: Vital Signs Temp Pulse Resp BP Pulse Ox 99.0 F 97 16 154/104 H 97 04/15/20 20:44 04/15/20 20:44 04/15/20 20:44 04/15/20 20:44 04/15/20 20:44 Oxygen Delivery Method Room Air Weight: 80 kg Body Mass Index (BMI) 22.6 General: Alert, Oriented x3, Cooperative HEENT: Atraumatic, PERRLA, EOMI, Normocephalic Neck: Supple, No JVD, Negative Carotid Bruits Lungs: Clear to auscultation, Normal air movement Cardiovascular: Regular rate, Normal S1, Normal S2, No murmurs Abdomen: Bowel Sounds Present, Soft, Non Tender, - - Ileostomy bag in place. Extremities: No edema, Capillary Refill Less than 3 Seconds Skin: No breakdown, - - Purplish rash on bilateral legs. Musculoskeletal: No Tenderness to Palpation of Joints or Extremities Neurological: Cranial nerves II-XII grossly intact Psych/Mental Status: Anxious, Restless Laboratory Results 04/15/20 22:20: WBC 12.7 H, RBC 3.88 L, Hgb 11.1 L, Hct 33.7 L, MCV 86.9, MCH 28.6, MCHC 32.9, RDW Std Deviation 44.1 H, RDW Coeff of Nish 13.9, Plt Count 486 H, MPV 9.5, Immature Gran % (Auto) 0.600, Neut % (Auto) 76.9 H, Lymph % (Auto) 12.2 L, [place] % (Auto) 9.1, Eos % (Auto) 0.9, Baso % (Auto) 0.3, Absolute Neuts (auto) 9.8 H, Absolute Lymphs (auto) 1.54, Nucleated RBC % 0 04/15/20 22:20: Sodium 129 L, Potassium 3.6, Chloride 99, Carbon Dioxide 20.0 L, Anion Gap 10, BUN 41 H, Creatinine 2.03 H, Estim Creat Clear Calc 55.28, Est GFR (MDRD) Af Amer 47 L, Est GFR (MDRD) Non-Af 39 L, BUN/Creatinine Ratio 20.2 H , Glucose 94, Calcium 8.5, Total Bilirubin 0.40, AST 82 H, ALT 27, Alkaline Phosphatase 78, Total Protein 8.2, Albumin 3.9, Globulin 4.3 H, Albumin/Globulin Ratio 0.9 04/15/20 22:20: Ethyl Alcohol < 3.0 04/15/20 22:20: Total Creatine Kinase 2717 H 04/15/20 : Urine Opiates Screen NEGATIVE, Urine Methadone Screen NEGATIVE, Ur Barbiturates Screen NEGATIVE, Ur Phencyclidine Scrn NEGATIVE, Ur Amphetamines Screen NEGATIVE, U Methamphetamin-MDMA NEGATIVE, U Benzodiazepines Scrn NEGATIVE, Urine Cocaine Screen NEGATIVE, U Cannabinoids Screen NEGATIVE, Ur Drug Screen Comment 04/15/20 : Urine Color Yellow, Urine Clarity Clear, Urine pH 6.0, Ur Specific [place] 1.010, Urine Protein 30 H, Urine Glucose (UA) Normal, Urine Ketones Negative, Urine Occult Blood 150 H, Urine Nitrite Negative, Urine Bilirubin Negative, Urine Urobilinogen Normal, Ur Leukocyte Esterase Negative, Urine RBC 0-5 SEEN, Urine WBC 0 SEEN, Ur Squamous Epith Cells 0 SEEN, Urine Bacteria 0 SEEN, Urine Mucus 0 SEEN Current Medications Sodium Chloride () 1,000 mls @ 999 mls/hr IV .Q1H1M ONE Stop: 04/16/20 00:20 Last Admin: 04/15/20 23:37 Dose: 999 mls/hr Documented by: Assessment/Plan All Active Problems (Last Reviewed 04/16/20 @ 02:[address] Claude Fields MD) Rhabdomyolysis (Acute) Acute kidney injury (Acute) Hyponatremia (Acute) Hallucinations (Acute) The patient is a 39 year old M with a significant history of Crohn's disease; anxiety; and ileostomy who presents emergency department with hallucinations; anxiety; restlessness and was found to have elevated creatinine; elevated AST; abnormal urinalysis; leukocytosis; and increased CPK. Acute rhabdomyolysis CPK is 2717. Etiology of his rhabdomyolysis is unclear. Cannot rule out neuroleptic malignant syndrome. Received at emergency department. We will continue normal saline at 100 mL's per hour. Trend CPK Hallucinations Etiology is unclear. Hold Paxil at this time. Start patient on Atarax for anxiety disorder. TAMIKO Creatinine on presentation was 2.03. Review of records shows baseline creatinine around 1. IV hydration as above. Avoid nephrotoxins. Trend BMP. Hyponatremia Sodium of 129 on presentation. Cannot rule out SIADH from SSRI (Paxil). Paxil held as above Hyponatremia work-up including serum and urine osmolality ordered. TSH and a.m. cortisol ordered. Leukocytosis Likely reactive Trend. Anemia Chronic. Crohn disease status post ileostomy Consult ostomy nurse while inpatient. Insomnia Mirtazapine continued. DVT prophylaxis Moderate risk secondary to Crohn's disease. Lovenox ordered. Inpatient E&M: [id number] Init Hosp L3
[2020-04-16] MEDS: 0.9% Saline Lock 10 ML Syringe IV (02:25)
[2020-04-16] MEDS: 0.9% Normal Saline 1,000 ML 100 ML IV ×3 (02:25→22:58)
[2020-04-16 02:50] LABS: Urine Sodium 5 mmol/L (Not Establ.)
[2020-04-16 02:52] LABS: Thyroid Stim Hormone (TSH) 0.91 uIU/mL (0.358-3.74)
[2020-04-16] MEDS: hydrOXYzine 10 MG Tablet PO (04:41)
[2020-04-16 05:43] LABS: Osmolality, Urine 286 mOsm/KG
[2020-04-16 05:44] LABS: Osmolality, Serum 284 mOsm/KG (275-295)
[2020-04-16] MEDS: Budesonide Respules 0.5 MG/2 ML AMPUL.NEB. INHALATION ×2 (06:43→19:54)
[2020-04-16 06:48] LABS: Absolute Lymphocyte Count 1.97 X10^3/uL (0.83-4.51); Absolute Neutrophil Count 6.7 X10^3/uL (2.0-7.7); Basophil# 0.06 X10^3/uL; Basophil% 0.6 % (0-1); Eosinophil# 0.33 X10^3/uL; Eosinophils% 3.3 % (0-5); Hematocrit 30.3 % (40-54); Hemoglobin 9.8 g/dL (13.0-16.5); Lymphocyte # 1.97 X10^3/ul (4.0); Lymphocyte % 19.4 % (19-41); Mean Corp Hgb Conc 32.3 g/dL (32-36); Mean Corpuscular Hgb 28.7 pg (27.0-32.0); Mean Corpuscular Volume 88.9 fL (80-94); Mean Platelet Vol. 9.6 fl (6.2-12.0); Monocyte# 1.01 X10^3/uL; NRBC Flagged by Analyzer 0 % (0-5); Neutrophil # 6.71 X10^3/uL (2.7-7.7); Neutrophil % 66.2 % (47-70); Platelet Count 428 K/mm3 (150-450); RBC Distribution Width SD 45.5 fl (35.1-43.9); Red Blood Count 3.41 M/mm3 (4.6-6.2); White Blood Count 10.1 K/mm3 (4.4-11.0)
[2020-04-16 07:46] LABS: Anion Gap 8 (5-15); BUN 34 mg/dL (7-18); CPK Total, Creatine Kinase 1828 U/L (39-308); Calcium,Total 7.8 mg/dL (8.5-10.1); Chloride 102 mmol/L (98-107); Creatinine, Serum 1.48 mg/dL (0.70-1.30); EST Glomerular Filtration Rate 56 mL/min (>60); Est Glom Filt Rate - Afr Amer 68 mL/min (>60); Estimated Creatinine Clearance 75.88 ml/min; Glucose 90 mg/dL (74-106); Potassium 3.3 mmol/L (3.5-5.1); Sodium Level 129 mmol/L (136-145)
[2020-04-16] MEDS: Enoxaparin 40 MG/0.4 ML Syringe SC (08:50)
--- NOTE | 2020-04-16 12:47 | PCM.PN.HOSP ---
Patient Problems: Active and Suspected Problems (Last Reviewed 04/16/20 @ 02:[address] Claude Fields MD) Rhabdomyolysis (Acute) Acute kidney injury (Acute) Hyponatremia (Acute) Hallucinations (Acute) Subjective: Feeling well. States that he is feeling better but still unsteady. Later discussed with the patient's father that the patient was previously living in [place] but that had come back to [place] because he was just blacking out. Never had a thorough work-up in [place]. Had seen a nurse practitioner Ginny in [facility] and was diagnosed with neurogenic orthostatic hypotension there and was started on pyridostigmine for this as an off label indication. Father states that he was told that this is off label and does not indicated for myasthenia gravis (states that the nurse practitioner told him that it was not indicated for myasthenia gravis per se but was strictly as an off label indication.) He has been on the pretty stick mean for the past couple weeks and has not noticed any change. Vitals/I&O's: Vital Signs Temp Pulse Resp BP Pulse Ox 37.5 C H 79 20 H 111/90 H 96 04/16/20 08:43 04/16/20 08:43 04/16/20 08:43 04/16/20 08:43 04/16/20 08:43 Oxygen Delivery Method Room Air Weight: 80.059 kg Body Mass Index (BMI) 22.6 Intake and Output for Last 24 Hours 04/14/20 04/15/20 04/16/20 23:59 23:59 23:59 Intake Total 1899 Balance 1899 General: Alert, No apparent distress, - - Unsteady and with his arms and restless legs. Was eating when I was in there and was spilling food on himself. HEENT: Atraumatic, PERRLA, EOMI, Normocephalic, - - No nystagmus Oral: Moist Mucosa, No Gingival or Mucosal Lesions/ Ulcerations Neck: No Nodes, Thyroid Normal Size and Texture Lungs: Clear to auscultation, Normal air movement, No rhonchi, No wheeze, No rales Cardiovascular: Regular rate, Regular Rhythm, Normal S1, Normal S2, No murmurs Abdomen: Bowel Sounds Present, Soft, Non Tender, Non-Distended Extremities: No edema, No Calf Tenderness Skin: No rashes, No breakdown Neurological: Cranial nerves II-XII grossly intact, - - Hyperreflexia in the patellar reflexes. No clonus though it was difficult to evaluate as patient was counseling moving his legs. Psych/Mental Status: Normal Affect, Appropriate Laboratory Results 04/15/20 22:20: WBC 12.7 H, RBC 3.88 L, Hgb 11.1 L, Hct 33.7 L, MCV 86.9, MCH 28.6, MCHC 32.9, RDW Std Deviation 44.1 H, RDW Coeff of Nish 13.9, Plt Count 486 H, MPV 9.5, Immature Gran % (Auto) 0.600, Neut % (Auto) 76.9 H, Lymph % (Auto) 12.2 L, [place] % (Auto) 9.1, Eos % (Auto) 0.9, Baso % (Auto) 0.3, Absolute Neuts (auto) 9.8 H, Absolute Lymphs (auto) 1.54, Nucleated RBC % 0 04/15/20 22:20: Sodium 129 L, Potassium 3.6, Chloride 99, Carbon Dioxide 20.0 L, Anion Gap 10, BUN 41 H, Creatinine 2.03 H, Estim Creat Clear Calc 55.28, Est GFR (MDRD) Af Amer 47 L, Est GFR (MDRD) Non-Af 39 L, BUN/Creatinine Ratio 20.2 H, Glucose 94, Calcium 8.5, Total Bilirubin 0.40, AST 82 H, ALT 27, Alkaline Phosphatase 78, Total Protein 8.2, Albumin 3.9, Globulin 4.3 H, Albumin/Globulin Ratio 0.9 04/15/20 22:20: Ethyl Alcohol < 3.0 04/15/20 22:20: Total Creatine Kinase 2717 H 04/15/20 22:20: Serum Osmolality 284 04/15/20 22:20: TSH 0.91 04/15/20 : Urine Opiates Screen NEGATIVE, Urine Methadone Screen NEGATIVE, Ur Barbiturates Screen NEGATIVE, Ur Phencyclidine Scrn NEGATIVE, Ur Amphetamines Screen NEGATIVE, U Methamphetamin-MDMA NEGATIVE, U Benzodiazepines Scrn NEGATIVE, Urine Cocaine Screen NEGATIVE, U Cannabinoids Screen NEGATIVE, Ur Drug Screen Comment 04/15/20 : Urine Color Yellow, Urine Clarity Clear, Urine pH 6.0, Ur Specific Mckinnon 1.010, Urine Protein 30 H, Urine Glucose (UA) Normal, Urine Ketones Negative, Urine Occult Blood 150 H, Urine Nitrite Negative, Urine Bilirubin Negative, Urine Urobilinogen Normal, Ur Leukocyte Esterase Negative, Urine RBC 0-5 SEEN, Urine WBC 0 SEEN, Ur Squamous Epith Cells 0 SEEN, Urine Bacteria 0 SEEN, Urine Mucus 0 SEEN 04/15/20 : Ur Random Sodium 5 04/15/20 : Urine Osmolality 286 04/16/20 06:26: WBC 10.1, RBC 3.41 L, Hgb 9.8 L, Hct 30.3 L, MCV 88.9, MCH 28.7, MCHC 32.3, RDW Std Deviation 45.5 H, RDW Coeff of Nish 14.0, Plt Count 428, MPV 9.6, Immature Gran % (Auto) 0.500, Neut % (Auto) 66.2, Lymph % (Auto) 19.4, [place] % (Auto) 10.0, Eos % (Auto) 3.3, Baso % (Auto) 0.6, Absolute Neuts (auto) 6.7, Absolute Lymphs (auto) 1.97, Nucleated RBC % 0 04/16/20 06:26: Sodium 129 L, Potassium 3.3 L, Chloride 102, Carbon Dioxide 19.0 L, Anion Gap 8, BUN 34 H, Creatinine 1.48 H, Estim Creat Clear Calc 75.88, Est GFR (MDRD) Af Amer 68, Est GFR (MDRD) Non-Af 56 L, BUN/Creatinine Ratio 23.0 H, Glucose 90, Calcium 7.8 L, Total Creatine Kinase 1828 H 04/16/20 06:26: Cortisol Pending Current Medications Acetaminophen (Tylenol) 650 mg PO Q6H PRN PRN PRN Reason: Pain 1-10/Fever of T> 100.4F Budesonide (Pulmicort Aerosol) 0.5 mg INHALATION Q12H.RT [facility] Last Admin: 04/16/20 06:43 Dose: 0.5 mg Documented by: Enoxaparin Sodium (Lovenox) 40 mg SC DAILY [facility] Last Admin: 04/16/20 08:50 Dose: 40 mg Documented by: Hydroxyzine HCl (Atarax Tablet) 10 mg PO TID [facility] Last Admin: 04/16/20 04:41 Dose: 10 mg Documented by: Sodium Chloride () 1,000 mls @ 100 mls/hr IV .Q10H JOSE Last Admin: 04/16/20 02:25 Dose: 100 mls/hr Documented by: Sodium Chloride () 250 mls @ 15 mls/hr IV .[id number] PRN PRN Reason: Saline Flush Sodium Chloride () 250 mls @ 15 mls/hr IV .[id number] PRN PRN Reason: Additional IVPB Infusion Mirtazapine (Remeron) 15 mg PO QHS JOSE Ondansetron HCl (Zofran) 4 mg IV Q8H PRN PRN PRN Reason: NAUSEA/VOMITING Sodium Chloride () 10 - 40 ml IV UD PRN PRN Reason: SALINE FLUSH Last Admin: 04/16/20 02:25 Dose: 10 ml Documented by: Medical Necessity - Tobacco Use Smoking Status: Former smoker Tobacco Use: Cigarettes Assessment/Plan All Active Problems (Last Reviewed 04/16/20 @ 02:[address] 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 Has unsteadiness. Etiology is not clear. I doubt this is serotonin syndrome is not having any fevers. However, I have discontinued the mirtazapine as well as the paroxetine. Family was more concerned about this possible being serotonin syndrome. This issue seem to be more chronic rather than acute and the father endorsed as such as it just seemed that he was not getting any better. Patient has seen neurologists at [facility] and has been diagnosed with neurogenic orthostatic hypotension. I do not feel that that diagnosis would be the etiology of this chorea, however. I feel that there is something more underlying this. So that feel it is reasonable to discontinue these medications. I did explain the patient that he may experience some zaps with the SSRI withdrawal. Father was concerned about to discontinue medication abruptly but I told him that given his symptoms I feel that the risks of continue the medication could potentially outweigh the benefits of discontinuation. We will request records from [facility] as well as check an MRI of his brain to see if there is any evidence of any kind of degenerative process. No known family history of Jass's chorea. I did advise the patient and his father to actually see a physician over at [facility]. He was seeing a Anthony Gross, who is a nurse practitioner. Also recommended they could see about getting second opinion at [facility] where they have movement disorders over there. I did ask patient brought his drug history. States that he has had a history of opiate abuse but has been sometime ago. Patient was drinking alcohol to excess up until about a couple months ago. I asked specifically about synthetic drugs to which he denies any use of bath salts, Spice or NBOMe--he denied though he states that he has like to explain in the past. States that he has taken MDMA once. 2. Rhabdomyolysis: Unclear etiology but is trending down. Continue with IV fluids 3. Acute kidney injury: Creatinine was 2.03 upon arrival, down to 1.48. Baseline appears to be around 1. IV fluids. 4. Hallucinations: Patient but have some visual elucidation but also bizarre thoughts. Patient's father showed me attacks where he sent a text to his father about the broken glass at [employer]. Unclear etiology of this possibly could be related with a medication issue. 5. Neurogenic orthostatic hypotension: This was diagnosed at [facility] and had been started on pyridostigmine (off label use, no myasthenia gravis) for this. Asked if he had ever been put on midodrine which he and his father both denied he ever was put on midodrine. 6. VTE prophylaxis with enoxaparin. Greater than 60 minutes of which greater than 50% of the time was discussing with the patient and his father about the chorea, potential etiologies, work-up and likely further outpatient evaluation. Procedures: Other Procedure - See Report - non billable rounding as patient seen after midnight
--- NOTE | 2020-04-16 15:52 | NURSING ---
This nurse noticed that every time in to round on pt, drinking water fast and jug empty. This nurse asked aides how many times they have filled his water jub. Per Shabnam CYTOTECHNOLOGIST/HISTOTECHNOLOGIST, 6 times today. Pt states he has urinated no less then 10 times. This nurse cortexted dR. Vincent to inform him and see if he wants pt on fluid restrictions. No response back yet from Dr. Vincent. This nurse informed staff and MR. Gomez that he is to have any more fluids until Dr. Vincent answers back.
[2020-04-16] MEDS: Acetaminophen 325 MG Tablet 650 MG PO (20:54)
[2020-04-17] VITALS (10 sets, daily range): BP systolic 89–112; BP diastolic 49–86; PULSE 51–88; RESP 14–20; TEMP 36.3–36.8; O2SAT 94–99
[2020-04-17 06:16] LABS: Absolute Lymphocyte Count 1.54 X10^3/uL (0.83-4.51); Absolute Neutrophil Count 8.5 X10^3/uL (2.0-7.7); Basophil# 0.04 X10^3/uL; Basophil% 0.3 % (0-1); Eosinophil# 0.24 X10^3/uL; Eosinophils% 2.1 % (0-5); Hematocrit 28.7 % (40-54); Hemoglobin 9.3 g/dL (13.0-16.5); Lymphocyte # 1.54 X10^3/ul (4.0); Lymphocyte % 13.4 % (19-41); Mean Corp Hgb Conc 32.4 g/dL (32-36); Mean Corpuscular Hgb 28.9 pg (27.0-32.0); Mean Corpuscular Volume 89.1 fL (80-94); Mean Platelet Vol. 9.7 fl (6.2-12.0); Monocyte# 1.04 X10^3/uL; Monocyte% 9.1 % (0-10); NRBC Flagged by Analyzer 0 % (0-5); Neutrophil # 8.52 X10^3/uL (2.7-7.7); Neutrophil % 74.5 % (47-70); Platelet Count 416 K/mm3 (150-450); RBC Distribution Width CV 14.3 % (11.6-14.6); RBC Distribution Width SD 46.5 fl (35.1-43.9); Red Blood Count 3.22 M/mm3 (4.6-6.2); White Blood Count 11.5 K/mm3 (4.4-11.0)
[2020-04-17 06:48] LABS: Anion Gap 5 (5-15); BUN 16 mg/dL (7-18); BUN/Creat Ratio 15.4 RATIO (10-20); CPK Total, Creatine Kinase 873 U/L (39-308); Calcium,Total 7.6 mg/dL (8.5-10.1); Chloride 105 mmol/L (98-107); Creatinine, Serum 1.04 mg/dL (0.70-1.30); EST Glomerular Filtration Rate 84 mL/min (>60); Est Glom Filt Rate - Afr Amer 102 mL/min (>60); Estimated Creatinine Clearance 107.87 ml/min; Glucose 86 mg/dL (74-106); Potassium 3.4 mmol/L (3.5-5.1); Sodium Level 134 mmol/L (136-145)
[2020-04-17] MEDS: Budesonide Respules 0.5 MG/2 ML AMPUL.NEB. INHALATION ×2 (06:48→19:07)
[2020-04-17] MEDS: 0.9% Normal Saline 1,000 ML 100 ML IV (10:49)
[2020-04-17] MEDS: Enoxaparin 40 MG/0.4 ML Syringe SC (10:52)
[2020-04-17] MEDS: LORazepam 2 MG/ML Syringe 0.5 MG IV (11:46)
[2020-04-17] MEDS: 0.9% Saline Lock 10 ML Syringe IV (11:46)
--- NOTE | 2020-04-17 11:59 | PN_ITS ---
Patient Problems: Active and Suspected Problems (Last Reviewed 04/16/20 @ 02:[address] Claude Fields MD) Rhabdomyolysis (Acute) Acute kidney injury (Acute) Hyponatremia (Acute) Hallucinations (Acute) Reason for Visit: Hallucinations Involuntary movement Hyponatremia Hypokalemia Subjective: Patient is a 39-year-old gentleman with multiple comorbidities including Crohn's disease, anxiety disorder who presented with restlessness hallucinations. Patient was found to have abnormal urinalysis as well as elevated CPK levels Objective: GENERAL: cooperative HEENT: Atraumatic; EYES; Anicteric, Normal Conjunctiva NECK; supple, normal thyroid, RESPIRATORY: Diminished to auscultation CARDIOVASCULAR: Regular S1 S2, GI: soft, normoactive bowel sounds, : No Renal angle tenderness; EXTREMITIES: No edema, no clubbing, MUSCULOSKELETAL: no muscle waisting NEURO: Awake; no lateralizing signs. SKIN: No Rash PSYCH; Flat affect Vitals/I&O's: Vital Signs Temp Pulse Resp BP Pulse Ox 98.1 F 66 16 97/66 95 04/17/20 09:28 04/17/20 09:28 04/17/20 09:28 04/17/20 09:28 04/17/20 09:28 Oxygen Delivery Method Room Air Weight: 79.974 kg Body Mass Index (BMI) 22.6 Intake and Output for Last 24 Hours 04/15/20 04/16/20 04/17/20 23:59 23:59 23:59 Intake Total 9556 / 9556 1000 / 1000 Output Total 1000 / 1000 1150 / 1150 Balance 8556 / 8556 -150 / -150 Laboratory Results 04/17/20 05:30: WBC 11.5 H, RBC 3.22 L, Hgb 9.3 L, Hct 28.7 L, MCV 89.1, MCH 28.9, MCHC 32.4, RDW Std Deviation 46.5 H, RDW Coeff of Nish 14.3, Plt Count 416, MPV 9.7, Immature Gran % (Auto) 0.600, Neut % (Auto) 74.5 H, Lymph % (Auto) 13.4 L, [place] % (Auto) 9.1, Eos % (Auto) 2.1, Baso % (Auto) 0.3, Absolute Neuts (auto) 8.5 H, Absolute Lymphs (auto) 1.54, Nucleated RBC % 0 04/17/20 05:30: Sodium 134 L, Potassium 3.4 L, Chloride 105, Carbon Dioxide 24.0, Anion Gap 5, BUN 16, Creatinine 1.04, Estim Creat Clear Calc 107.87, Est GFR (MDRD) Af Amer 102, Est GFR (MDRD) Non-Af 84, BUN/Creatinine Ratio 15.4, Glucose 86, Calcium 7.6 L, Total Creatine Kinase 873 H 04/17/20 05:30: Vitamin B12 Pending 04/17/20 05:30: RBC Folate Hemolysate Pending, RBC Folate Pending, Hematocrit Pending Current Medications Acetaminophen (Tylenol) 650 mg PO Q6H PRN PRN PRN Reason: Pain 1-10/Fever of T> 100.4F Last Admin: 04/16/20 20:54 Dose: 650 mg Documented by: Budesonide (Pulmicort Aerosol) 0.5 mg INHALATION Q12H.RT [facility] Last Admin: 04/17/20 06:48 Dose: 0.5 mg Documented by: Enoxaparin Sodium (Lovenox) 40 mg SC DAILY [facility] Last Admin: 04/17/20 10:52 Dose: 40 mg Documented by: Sodium Chloride () 1,000 mls @ 100 mls/hr IV .Q10H [facility] Last Admin: 04/17/20 10:49 Dose: 100 mls/hr Documented by: Sodium Chloride () 250 mls @ 15 mls/hr IV .[id number] PRN PRN Reason: Saline Flush Sodium Chloride () 250 mls @ 15 mls/hr IV .[id number] PRN PRN Reason: Additional IVPB Infusion Ondansetron HCl (Zofran) 4 mg IV Q8H PRN PRN PRN Reason: NAUSEA/VOMITING Sodium Chloride () 10 - 40 ml IV UD PRN PRN Reason: SALINE FLUSH Last Admin: 04/17/20 11:46 Dose: 10 ml Documented by: STROKE Vital Signs/Narrative: Vital Signs Temp Pulse Resp BP Pulse Ox 04/17/20 09:28 98.1 F 66 16 97/66 95 04/17/20 08:27 98.2 F 65 16 89/64 L 98 Medical Necessity - Tobacco Use Smoking Status: Former smoker Tobacco Use: Cigarettes Assessment/Plan All Active Problems (Last Reviewed 04/16/20 @ 02:[address] Claude Fields MD) Rhabdomyolysis (Acute) Acute kidney injury (Acute) Hyponatremia (Acute) Hallucinations (Acute) Patient is a 39-year-old gentleman with multiple comorbidities including Crohn's disease, anxiety disorder who presented with restlessness hallucinations. Patient was found to have abnormal urinalysis as well as elevated CPK levels 1. Acute rhabdomyolysis ?Patient was found to have markedly elevated CPK levels with patient's hallucination as well as involuntary upper and lower extremity movement chuck picion of serotonin syndrome versus neuroleptic malignant syndrome (unlikely given the sudden onset) was made admitted to regular nursing floor managed with IV fluids. Patient was on mirtazapine as well as paroxetine both discontinued. 2. Suspected serotonin syndrome -Patient was on SSRI prior to his admission, in addition he apparently did experience involuntary movement the day prior as well as acute kidney injury and acute rhabdomyolysis.. Admitted to regular nursing floor for conservative management. Patient had MRI of the brain ordered for his involuntary movement. 3. Acute kidney injury ?Secondary to acute rhabdomyolysis kidney function improved with rehydration 4. Hyponatremia ?Secondary to SSRI use discontinued managed with fluids sodium levels markedly improved 5. Hypokalemia ?Corrected per protocol 6.. Anemia - Secondary to chronic disorder monitoring H&H and transfuse if patient becomes symptomatic or hemoglobin falls below 7 7. Crohn disease -status post ileostomy; Consult placed to ostomy nurse while inpatient. 8. DVT prophylaxis -Lovenox Inpatient E&M: [id number] [facility] L3
--- NOTE | 2020-04-17 12:09 | MRI_ITS ---
STUDY: MRI BRAIN WITH AND WITHOUT CONTRAST REASON FOR EXAM: Male, 39 years old. myoclonus, INVOLUNTARY TREMORS TECHNIQUE: Standardized multiplanar fat and water weighted pulse sequences were obtained. IV dotarem 17 was administered for the contrast portion of the examination. COMPARISON: None. FINDINGS: Normal size of the ventricles and extra-axial spaces for the patient''s age. Normal white matter tracts of the supratentorial brain. There is no evidence for recent intracranial ischemia or other cause of cytotoxic edema on diffusion weighted imaging (DWI). Normal T2* images of the brain without demonstrated susceptibility artifact. There is no demonstrated hemosiderin stain. Normal bilateral basal ganglia. Normal thalami. There is no extra-axial fluid accumulation. Normal flow voids within the major intracranial circulation suggesting patency by spin echo criteria. Normal venous enhancement. There is no enhancing intra-axial or extra-axial abnormality. Normal sella turcica, pituitary gland, infundibular stalk, optic chiasm and hypothalamus. Normal tectal plate and pineal gland. Normal midbrain, ashleigh and medulla. Normal cerebellum. Normal basal cisterns. Normal bilateral temporal bones. Normal bilateral internal auditory canals. No demonstrated orbital abnormality, within the constraints of a routine brain study. There is mucoperiosteal inflammatory disease of the paranasal sinuses consistent with mild chronic sinusitis. Normal calvarium and skull base. Normal visualized soft tissue structures. Normal visualized upper cervical spine. MRI/Brain W/WO Contrast IMPRESSION: Normal unenhanced and enhanced MRI of the brain. Electronically Signed: Ghassan Bonilla MD at 13:20 EDT Tel , Service support ,
--- NOTE | 2020-04-17 13:50 | NURSING ---
Was asked to see patient for ostomy needs. Pt has had ileostomy for approx. 20 years d/t Crohn's disease. Pt is independent with care and denies needs at this time. Father present at bedside.
--- NOTE | 2020-04-17 14:30 | CASEMGMT ---
Patient out of the room for testing. Noted documentation that patient with confusion/hallucinations. Call placed to patient's father Rhys for initial transition planning/care coordination assessment. RIO JAFFE introduced self and role at [facility], voices understanding. Care providers, pharmacy, and demographics verified. PCP: [facility] Specialists: Jean-Claude (sees for sleep disorder) and [facility] neurology for neurogenic orthostatic hypotension Preferred [facility]acy: [facility] Insurance: [employer] Prescription Benefit: Yes Living Will/HPOA: No Living Will. Recently completed HPOA papers designating pt's brother Derrell as his HPOA. LNOK: Father Rhys, Brother Derrell Living Arrangements: Pt lives alone in a second story apartment. Pt has been independent with ADLs including care of his ileostomy. Transportation: Pt has his license but his father took away his car due to concerns related to excess ETOH intake. Pt's father states that pt has been dry now for 2 month. Pt's father provides transportation to appointments, groceries, etc. DME/HHC: None except ileostomy supplies. Pt receives these via mail order. Plan: Home with family support. Joselyn Restrepo RN CM
--- NOTE | 2020-04-17 16:25 | NURSING ---
Update given to patient's father, Rhys.
[2020-04-18] MEDS: 0.9% Normal Saline 1,000 ML 100 ML IV (01:06)
[2020-04-18 04:22] VITALS: BP 106/67; PULSE 66; RESP 16; TEMP 37.1; O2SAT 97
[2020-04-18 07:08] VITALS: PULSE 55; RESP 18
[2020-04-18] MEDS: Budesonide Respules 0.5 MG/2 ML AMPUL.NEB. INHALATION (07:08)
[2020-04-18 08:07] LABS: Hematocrit 26.5 % (40-54); Hemoglobin 8.5 g/dL (13.0-16.5); Mean Corp Hgb Conc 32.1 g/dL (32-36); Mean Corpuscular Hgb 28.5 pg (27.0-32.0); Mean Corpuscular Volume 88.9 fL (80-94); Mean Platelet Vol. 9.5 fl (6.2-12.0); Platelet Count 404 K/mm3 (150-450); RBC Distribution Width CV 14.6 % (11.6-14.6); RBC Distribution Width SD 47.7 fl (35.1-43.9); Red Blood Count 2.98 M/mm3 (4.6-6.2); White Blood Count 7.4 K/mm3 (4.4-11.0)
[2020-04-18 08:28] LABS: Anion Gap 4 (5-15); BUN 11 mg/dL (7-18); BUN/Creat Ratio 13.6 RATIO (10-20); CPK Total, Creatine Kinase 333 U/L (39-308); Calcium,Total 7.6 mg/dL (8.5-10.1); Chloride 107 mmol/L (98-107); Creatinine, Serum 0.81 mg/dL (0.70-1.30); EST Glomerular Filtration Rate 113 mL/min (>60); Est Glom Filt Rate - Afr Amer 136 mL/min (>60); Glucose 89 mg/dL (74-106); Magnesium 1.3 mg/dL (1.6-2.6); Potassium 3.4 mmol/L (3.5-5.1); Sodium Level 137 mmol/L (136-145)
[2020-04-18 08:34] VITALS: BP 117/78; PULSE 53; RESP 16; TEMP 36.8; O2SAT 100
[2020-04-18 08:40] VITALS: PULSE 48
--- NOTE | 2020-04-18 10:12 | PCM.DC ---
- Discharge Diagnoses Current Active Problems: Current Active and Chronic Problems (Last Reviewed 04/16/20 @ 02:[address] Claude Fields MD) Rhabdomyolysis (Acute) Acute kidney injury (Acute) Hyponatremia (Acute) Hallucinations (Acute) You will use the following diet at home:: No restrictions Allergies/Adverse Reactions: Allergies No Known Allergies Allergy (Verified 04/15/20 20:48) Medications to take at Discharge Albuterol Inhaler [Ventolin Hfa] 1 puff INHALATION Q4H PRN PRN 08/31/19 Budesonide Inhaler 180 mcg [Pulmicort Inhaler 180 mcg] 1 puff INHALATION BID 08/31/19 Magnesium Oxide [Magox 400] 400 mg PO BID #20 tab 04/18/20 Potassium Chloride [K-Dur] 20 meq PO BIDCM #20 tab 04/18/20 The following prescriptions were given: Potassium Chloride [K-Dur] 20 meq PO BIDCM #20 tab Transmission Status: Pending to [facility] Magnesium Oxide [Magox 400] 400 mg PO BID #20 tab Transmission Status: Pending to [facility] Primary Care Physician: Chris Helms MD [Primary Care Provider] - Please follow up with your Primary Care Physician in: IN 1 WEEK Test Results: Test results from this visit will be discussed in further detail at your follow-up appointment, if applicable. Proposed Discharge Date: 04/18/20
--- NOTE | 2020-04-18 10:15 | DS.PCM_ITS ---
Discharge Date and Diagnosis - Problem List Patient Problems: Active and Suspected Problems (Last Reviewed 04/16/20 @ 02:[address] Claude Fields MD) Rhabdomyolysis (Acute) Acute kidney injury (Acute) Hyponatremia (Acute) Hallucinations (Acute) Date of Admission: 04/16/20 Date of Discharge: 04/18/20 - Primary Discharge Diagnosis Acute Problems: Active Problems (Last Reviewed 04/16/20 @ 02:[address] Claude Fields MD) Rhabdomyolysis (Acute) Acute kidney injury (Acute) Hyponatremia (Acute) Hallucinations (Acute) Hospital Course and Treatment Consultations 04/16/20 02:00 Consult: Onc/Wound/medical radiation therapist Routine Comment: Reason for Consult:: Ileostomy management Operations: None Summary of Care Provided: Patient is a 39-year-old gentleman with multiple comorbidities including Crohn's disease, anxiety disorder who presented with restlessness hallucinations. Patient was found to have abnormal urinalysis as well as elevated CPK levels 1. Acute rhabdomyolysis ?Patient was found to have markedly elevated CPK levels with patient's hallucination as well as involuntary upper and lower extremity movement suspicion of serotonin syndrome versus neuroleptic malignant syndrome (unlikely given the sudden onset) was made admitted to regular nursing floor managed with IV fluids. Patient was on mirtazapine as well as paroxetine both discontinued. -CPK level at the time of discharge was 333 and initial admitting level of 2717 2. Suspected serotonin syndrome -Patient was on SSRI prior to his admission, in addition he apparently did experience involuntary movement the day prior as well as acute kidney injury and acute rhabdomyolysis.. Admitted to regular nursing floor for conservative management. Patient had MRI of the brain ordered for his involuntary movement. MRI of the brain was unremarkable. Patient was discharged home with discontinuation of both Remeron and Paxil 3. Acute kidney injury ?Secondary to acute rhabdomyolysis kidney function improved with rehydration 4. Hyponatremia ?Secondary to SSRI use discontinued managed with fluids sodium levels markedly improved 5. Hypokalemia ?Corrected per protocol 6.. Anemia - Secondary to chronic disorder monitoring H&H and transfuse if patient becomes symptomatic or hemoglobin falls below 7 7. Crohn disease -status post ileostomy; Consult placed to ostomy nurse while inpatient. 8. DVT prophylaxis -Lovenox 9. Hypokalemia ?Corrected per protocol 10. Hypomagnesemia ?Corrected per protocol Patient Problems: Active and Suspected Problems (Last Reviewed 04/16/20 @ 02:[address] Claude Fields MD) Rhabdomyolysis (Acute) Acute kidney injury (Acute) Hyponatremia (Acute) Hallucinations (Acute) - Physical Exam Vitals/I&O's: Vital Signs Temp Pulse Resp BP Pulse Ox 98.2 F 53 L 16 117/78 100 04/18/20 08:34 04/18/20 08:34 04/18/20 08:34 04/18/20 08:34 04/18/20 08:34 Oxygen Delivery Method Room Air Weight: 79.974 kg Body Mass Index (BMI) 22.6 Intake and Output for Last 24 Hours 04/16/20 04/17/20 04/18/20 23:59 23:59 23:59 Intake Total 9556 / 9556 3400.00 / 3400.00 Output Total 1000 / 1000 1150 / 1150 Balance 8556 / 8556 2250.00 / 2250.00 General: Alert HEENT: Atraumatic Oral: Moist Mucosa Neurological: Neuro grossly intact Psych/Mental Status: Flat Affect Laboratory Results 04/18/20 07:55: WBC 7.4, RBC 2.98 L, Hgb 8.5 L, Hct 26.5 L, MCV 88.9, MCH 28.5, MCHC 32.1, RDW Std Deviation 47.7 H, RDW Coeff of Nish 14.6, Plt Count 404, MPV 9.5 04/18/20 07:55: Sodium 137, Potassium 3.4 L, Chloride 107, Carbon Dioxide 26.0, Anion Gap 4 L, BUN 11, Creatinine 0.81, Estim Creat Clear Calc 138.50, Est GFR (MDRD) Af Amer 136, Est GFR (MDRD) Non-Af 113, BUN/Creatinine Ratio 13.6, Glucose 89, Calcium 7.6 L, Magnesium 1.3 L, Total Creatine Kinase 333 H Current Medications Acetaminophen (Tylenol) 650 mg PO Q6H PRN PRN PRN Reason: Pain 1-10/Fever of T> 100.4F Last Admin: 04/16/20 20:54 Dose: 650 mg Documented by: Budesonide (Pulmicort Aerosol) 0.5 mg INHALATION Q12H.RT JOSE Last Admin: 04/18/20 07:08 Dose: 0.5 mg Documented by: Enoxaparin Sodium (Lovenox) 40 mg SC DAILY [facility] Last Admin: 04/18/20 09:48 Dose: Not Given Documented by: Sodium Chloride () 1,000 mls @ 100 mls/hr IV .Q10H [facility] Last Admin: 04/18/20 01:06 Dose: 100 mls/hr Documented by: Sodium Chloride () 250 mls @ 15 mls/hr IV .[id number] PRN PRN Reason: Saline Flush Sodium Chloride () 250 mls @ 15 mls/hr IV .[id number] PRN PRN Reason: Additional IVPB Infusion Magnesium Sulfate () 4 gm in 100 mls @ 25 mls/hr IV X1 ONE Stop: 04/18/20 14:59 Ondansetron HCl (Zofran) 4 mg IV Q8H PRN PRN PRN Reason: NAUSEA/VOMITING Potassium Chloride (K-Dur) 20 meq PO BIDCM [facility] Sodium Chloride () 10 - 40 ml IV UD PRN PRN Reason: SALINE FLUSH Last Admin: 04/17/20 11:46 Dose: 10 ml Documented by: Discharge Diet: No Restrictions Discharge Activity: Return to Normal Activity, May not drive while taking narcotic pain medications. Home Medications: Medications to take at Discharge Albuterol Inhaler [Ventolin Hfa] 1 puff INHALATION Q4H PRN PRN 08/31/19 Budesonide Inhaler 180 mcg [Pulmicort Inhaler 180 mcg] 1 puff INHALATION BID 08/31/19 Magnesium Oxide [Magox 400] 400 mg PO BID #20 tab 04/18/20 Potassium Chloride [K-Dur] 20 meq PO BIDCM #20 tab 04/18/20 Following Prescriptions Were Given to Patient: Potassium Chloride [K-Dur] 20 meq PO BIDCM #20 tab Transmission Status: Pending to [facility] Magnesium Oxide [Magox 400] 400 mg PO BID #20 tab Transmission Status: Pending to [facility] Primary Care Physician: Chris Helms MD [Primary Care Provider] - Please follow up with your Primary Care Physician in: IN 1 WEEK Disposition: Home Minutes spent on discharge:: 35 Medical Necessity - Tobacco Use Smoking Status: Former smoker Tobacco Use: Cigarettes Meaningful Use Info Meaningful Use Diagnoses (Choose all that apply): None applicable Inpatient E&M: 65453 Disch Hosp
[2020-04-18] MEDS: Magnesium Sulfate 4gm/100mL 4 GM/100 ML IV.SOLN. IV (11:02)
[2020-04-18 15:05] VITALS: BP 121/70; PULSE 58; RESP 16; TEMP 36.7; O2SAT 98
[2020-04-18 20:08] LABS: Folate, RBC (Hct) Test 28.1 % (37.5-51.0)
[2020-04-18 21:04] LABS: Folates, RBC Test 1096 ng/mL (>498)
[2020-04-19 09:45] LABS: Vitamin B12 549 pg/mL (211-911)
--- NOTE | 2020-04-20 16:22 | CASEMGMT ---
RIO JAFFE Discharge Follow-up Phone Call: RENUKA: Lolly Strata: 3 Call Date: 04/20/2020 Discharge Date: 04/18/2020 Time of Call: 1620 Admitting Diagnosis: Rhabdomyolysis, TAMIKO, hyponatremia, hallucinations Discharge follow-up call placed to pt. Pt states he has been feeling absolutely fine since discharge. Pt denied any abnormal movements or weakness. Pt states he obtained his prescriptions and has been taking them as ordered. Pt states he did attend his follow-up appointment with Dr. Helms today. Pt denied any questions or concerns. Joselyn Restrepo RN CM
== END 2020-04-18 15:21 | disposition home or self-care (01) | DRG 558 ==
LOC: ED 21:58 → MS3 04-16 01:16
PROVIDERS: Admitting Provider Hospitalist; Emergency Provider Emergency Medicine; PCP Internal Medicine; Referring Provider Hospitalist; Visit Provider Internal Medicine
DX: M62.82 Rhabdomyolysis (principal); N17.9 Acute kidney failure, unspecified; E87.1 Hypo-osmolality and hyponatremia; K50.90 Crohn's disease, unspecified, without complications; R44.0 Auditory hallucinations; G90.3 Multi-system degeneration of the autonomic nervous system; E87.6 Hypokalemia; Z23 Encounter for immunization; Z93.2 Ileostomy status; J45.909 Unspecified asthma, uncomplicated; F41.9 Anxiety disorder, unspecified; D64.9 Anemia, unspecified; G25.5 Other chorea; Z87.891 Personal history of nicotine dependence
CPT/HCPCS: 36415; 70553; 80048; 80053; 80307; 80320; 81001; 82533; 82550; 82607; 82747; 83735; 83930; 83935; 84300; 84443; 85014; 85025; 85027; 93005; 94640; 97162; 97166; 99281; A9575; J7030; 90686; A4216; G0480

== ENCOUNTER → 2020-04-27 09:00 | Outpatient (CLI) | payer OTHER, SELFPAY ==
[2020-04-16 02:01] VITALS: BMI 22.6
== END ==
PROVIDERS: PCP Internal Medicine
DX: I49.8 Other specified cardiac arrhythmias (principal)
CPT/HCPCS: 87635; C9803; U0003

== ENCOUNTER 2020-06-20 15:35 | Emergency (ER) | payer OTHER, SELFPAY ==
[2020-04-16 02:01] VITALS: BMI 22.6
[2020-06-20] VITALS (19 sets, daily range): BP systolic 97–133; BP diastolic 68–78; PULSE 68–110; RESP 13–29; TEMP 35.3–38.4; O2SAT 92–98; BMI 21.8
--- NOTE | 2020-06-20 15:57 | RAD_ITS ---
STUDY: X-RAY CHEST REASON FOR EXAM: Male, 39 years old. Shortness of breath. Cough beginning last . Weakness. Oxygen saturation below 90%. TECHNIQUE: Single AP portable view of the chest. COMPARISON: 01/07/2020. FINDINGS: There is a large area of consolidation at the left lung base thought to involve the lingula. The lungs appear otherwise clear. There is no demonstrated pleural abnormality. Normal size heart. Normal mediastinum and valentino. Normal visualized pulmonary arteries. Normal visualized aortic arch and descending thoracic aorta. Normal visualized thoracic spine. Normal visualized ribs, clavicles, and shoulders. There is no demonstrated abnormality of the visualized soft tissue structures of the upper abdomen. RAD/Chest 1 View (Portable) IMPRESSION: Lingular pneumonia. Electronically Signed: Sam Mathews DO at 16:11 EST Tel [phone], Service support ,
--- NOTE | 2020-06-20 16:27 | EKG12_ITS ---
Test Reason : SOB Blood Pressure : / mmHG Vent. Rate : 099 BPM Atrial Rate : 099 BPM P-R Int : 158 ms QRS Dur : 096 ms QT Int : 412 ms P-R-T Axes : 047 035 015 degrees QTc Int : 528 ms Normal sinus rhythm Nonspecific ST abnormality Prolonged QT Abnormal ECG Confirmed by SHEYLA MCKINLEY, ELA ([id number]), industrial editor XIMENA BARROSO ([id number]) on 06/23/2020 8:47:35 A M Referred By: [facility] Confirmed By:ELIZ CARRION MD
[2020-06-20 17:01] LABS: Absolute Lymphocyte Count 1.75 X10^3/uL (0.83-4.51); Absolute Neutrophil Count 30.6 X10^3/uL (2.0-7.7); Basophil# 0.12 X10^3/uL; Basophil% 0.3 % (0-1); Eosinophil# 0.03 X10^3/uL; Eosinophils% 0.1 % (0-5); Hematocrit 18.7 % (40-54); Hemoglobin 6.2 g/dL (13.0-16.5); Lymphocyte # 1.75 X10^3/ul (4.0); Lymphocyte % 4.9 % (19-41); Mean Corp Hgb Conc 33.2 g/dL (32-36); Mean Corpuscular Hgb 24.7 pg (27.0-32.0); Mean Corpuscular Volume 74.5 fL (80-94); Mean Platelet Vol. 8.7 fl (6.2-12.0); Monocyte# 2.14 X10^3/uL; NRBC Flagged by Analyzer 0 % (0-5); Neutrophil # 30.59 X10^3/uL (2.7-7.7); Neutrophil % 85.2 % (47-70); POSITIVE COUNT YES; POSITIVE DIFFERENTIAL YES; RBC Distribution Width CV 17.8 % (11.6-14.6); Red Blood Count 2.51 M/mm3 (4.6-6.2)
[2020-06-20 17:10] LABS: Differential Indicated SCAN CRITERIA MET; Platelet Count 1204 K/mm3 (150-450); White Blood Count 35.9 K/mm3 (4.4-11.0)
--- NOTE | 2020-06-20 17:11 | CT_ITS ---
STUDY: CT CHEST WITHOUT CONTRAST REASON FOR EXAM: Male, 39 years old. Shortness of breath. Cough and congestion. Low-grade fever for one week. RADIATION DOSAGE (If Supplied By Facility): CTDIvol = ( 7.54 ) mGy, DLP = ( 278.84 ) mGycm TECHNIQUE: Transaxial imaging was performed without the administration of intravenous contrast material. Individualized dose optimization techniques were used for this CT. COMPARISON: Chest, 06/20/2020. FINDINGS: There is mild hyperinflation of the lungs. There are tree in bud infiltrates in the left upper and lower lobes. There is patchy peripheral infiltrate in the lower upper lobe which extends along the horizontal fissure as well as consolidation in the lingula. There is a loculated collection with an air-fluid level in the left anterior chest which compresses the lingula. This measures 7.5 x 3 x 4.9 cm. There is also evidence of consolidation with cavitation in the lateral aspect of the left lower lobe. There is also a focal area of consolidation with central cavitation containing an air fluid posteriorly in the left lower lobe measuring 4.2 x 3.1 x 3.7 cm. There is minimal vague groundglass densities in the left upper lobe with minimal nodularity laterally best seen on image 55 through 57. There is consolidation in the right lower lobe along the oblique fissure as well as a cavitary lesion in the medial segment right lower lobe measuring 2.8 x 2.4 x 3.1 cm. The heart is normal in size. There is a small pericardial effusion. There is paratracheal, precarinal, AP window and subcarinal lymphadenopathy. Probable bilateral hilar lymphadenopathy although this cannot be confirmed in the absence of contrast. Normal unenhanced pulmonary arteries. Normal aorta arch and descending thoracic aorta. Normal osseous structures. There is no demonstrated abnormality of the visualized upper abdomen. CT/Chest without Contrast IMPRESSION: 1. Bilateral pulmonary infiltrates, left greater than right with evidence of cavitation, as noted above. 2. Loculated collection containing air-fluid level in the anterior left hemithorax. 3. Mediastinal and hilar lymphadenopathy. 4. Small pericardial effusion. Electronically Signed: Sam Mathews DO at 18:13 EST Tel [phone], Service support ,
--- NOTE | 2020-06-20 17:12 | ED.DCSUM_ITS ---
History of Present Illness Chief Complaint: Shortness of Breath Informant: Patient Narrative: Patient presents with 1 week of low-grade fevers of 99-100, cough congestion and shortness of breath, his shortness of breath got much worse today. No contact with Covid patients that he knows of. He denies neck pain or headache. He denies urinary symptoms. He denies a rash. He denies any confusion. Past Medical History - Allergies and Home Meds Allergies/Adverse Reactions: Allergies No Known Allergies Allergy (Verified 06/20/20 15:36) Primary Care Physician: Chris Helms MD [Primary Care Provider] - Past Medical History: - - Noncontributory Surgical History: - - Total colectomy; ileostomy; multiple abdominal surgeries. Smoking Status: Former smoker - Family History Maternal Family History: Reports: Diabetes Paternal Family History: Reports: Cancer - Colon cancer and breast cancer Review of Systems All systems negative except as indicated General: Denies: Fever Eyes: Denies: Visual changes - bilaterally ENT: Reports: Rhinorrhea. Denies: Sore throat Cardiovascular: Denies: Chest pain, Palpitations Respiratory: Reports: Dyspnea, Cough Gastrointestinal: Denies: Abdominal pain, Nausea, Vomiting Musculoskeletal: Reports: Myalgias. Denies: Arthralgias Skin: Denies: Rash, Abscess Neurological: Reports: Weakness. Denies: Headache, Parasthesia Psych: Denies: Depression Endocrine: Denies: Polyuria Hematologic: Denies: Easy bruising, Easy bleeding Allergy: Denies: Uticaria Physical Exam Vital Signs/Narrative: Vital Signs Temp Pulse Resp BP Pulse Ox 06/20/20 17:00 98 F 98 17 97/68 92 06/20/20 16:56 99 17 99/70 94 06/20/20 16:36 98.7 F 97 21 H 99/70 92 06/20/20 15:36 95.5 F L 68 22 H 117/77 92 General: Well nourished, Well developed Eyes: Perrl, EOMI, Pale conjunctiva ENT: Moist mucous membranes Neck: Supple, Nontender Cardiovascular: Regular rate, Regular rhythm Respiratory: - - He has bilateral wheezing and rhonchi. He is however speaking in full sentences with only mild tachypnea. He does not appear in significant respiratory distress Abdomen: Soft, Nontender Back: Nontender, Normal Inspection Extremities: Nontender, No edema Skin: Normal color, No rash, Pallor Neurological: Normal Strength, Normal Sensation Psychological: Normal affect Diagnostic/Tx/Re-eval Chest X-Ray - ED: 1 View, Read by ED Physician, Read by Radiologist, - - Left lobe infiltrate which is quite significant, otherwise normal cardiac silhouette. - Rhythm Strip Rhythm Strip: Sinus Rhythm Rate: 99 Ectopy: None - EKG Initial EKG Interpretation: - - Sinus rhythm with a rate of 99. Normal DE interval. QTC is slightly prolonged at 528. Nonspecific ST changes throughout. Otherwise normal EKG Interpreted by emergency doctor - Medical Decision Making Patient is found to have a left-sided pneumonia with a white count of 35,000 because of this I send the patient for a CAT scan and the patient does have loculated pneumonia with 2 different relatively large cavitary lesions. He will need to be transferred for cardiothoracic surgery. I did start him on vanco mycin and Zosyn. Covid is pending at this time. He is also quite anemic and I will treat him for this. - Critical Care Time Critical care time (excluding procedures): 30-74 minutes, Including time spent:, Discussing w/Patient &/or Family/Ice Skating Instructor, Discussing w/Consultants, Arranging Admission or Transfer, Performing Direct Patient Care at Bedside ED Disposition - Plan for ED Patient: Disposition: Home or Assisted Living Diagnosis: Leukocytosis, Anemia, Cavitary lesion of lung, Pneumonia Referrals: Chris Helms MD [Primary Care Provider] -
[2020-06-20 17:19] LABS: International Normalized Ratio 1.4; Prothrombin Time (Protime)PT. 16.8 SECONDS (11.7-14.9)
[2020-06-20 17:20] LABS: Partial Thromboplast Time 45.4 Seconds (24.1-36.2)
[2020-06-20 17:25] LABS: ALB/GLOB Ratio 0.2 RATIO (0.9-2.4); AST(SGOT) 21 U/L (15-37); Alanine Aminotransfer ALT/SGPT 21 U/L (16-61); Albumin, Serum 1.6 g/dL (3.2-5.0); Alkaline Phosphatase 592 U/L (45-117); Anion Gap 11 (5-15); BUN 29 mg/dL (7-18); Calcium,Total 9.1 mg/dL (8.5-10.1); Chloride 90 mmol/L (98-107); Creatinine, Serum 1.32 mg/dL (0.70-1.30); EST Glomerular Filtration Rate 64 mL/min (>60); Est Glom Filt Rate - Afr Amer 77 mL/min (>60); Estimated Creatinine Clearance 81.95 ml/min; Globulin 7.4 g/dL (2.2-4.2); Glucose 103 mg/dL (74-106); Potassium 3.9 mmol/L (3.5-5.1); Sodium Level 128 mmol/L (136-145)
[2020-06-20 17:30] LABS: Lactic Acid 1.7 mmol/L (0.4-1.9)
[2020-06-20 17:37] LABS: Differential Comment SCANNED
[2020-06-20] MEDS: Ketorolac 15 MG/ML Vial IV (20:00)
[2020-06-20] MEDS: Acetaminophen 500 MG Tablet 1000 MG PO (21:49)
[2020-06-20 23:29] LABS: Mucous, Urine 0 SEEN /hpf (<or=2+); Squamous Epithelial Cells - UA 0 SEEN /hpf (0-5)
[2020-06-20 23:34] LABS: Color, Urine Yellow (Yellow); Glucose, Dipstick Normal (Normal); Ketone-Dipstick 5 mg/dl (Negative); Leukocyte Esterase-Dipstick 25 /ul (Negative); Nitrite-Dipstick Negative (Negative); Occult Blood-Urine 10 /ul (Negative); Protein-Dipstick 30 mg/dl (Negative); Specific Gravity, Urine 1.015 (1.002-1.030); Urine Clarity Sl. Cloudy (Clear); Urine Urobilinogen Normal (Normal)
[2020-06-20 23:37] LABS: Urine Bilirubin Dipstick 1 mg/dL (Negative)
[2020-06-20 23:40] LABS: Bacteria RARE /hpf (None Seen); Red Blood Cells-Urine 0-5 SEEN /hpf (0-5); White Blood Cells 0-5 SEEN /hpf (0-5)
[2020-06-20] MEDS: Ibuprofen 600 MG Tablet PO (23:54)
[2020-06-21 13:40] LABS: Pathologist Review Reviewed
== END 2020-06-21 00:02 | disposition short-term general hospital (02) ==
PROVIDERS: Emergency Provider Emergency Medicine; PCP Internal Medicine
DX: D72.829 Elevated white blood cell count, unspecified (principal); D64.9 Anemia, unspecified; R91.1 Solitary pulmonary nodule; J18.9 Pneumonia, unspecified organism; Z87.891 Personal history of nicotine dependence
CPT/HCPCS: 36430; 71045; 71250; 80053; 81001; 83605; 85025; 85610; 85730; 86850; 86900; 86901; 86920; 86922; 87040; 87086; 87426; 93005; 96361; 96365; 96366; 96367; 96375; 99285; J7030; J7050; P9016; A4216

== ENCOUNTER → 2020-07-03 11:11 | Outpatient (CLI) | payer OTHER, SELFPAY ==
[2020-06-20 15:36] VITALS: BMI 21.8
[2020-07-03 11:25] LABS: Absolute Lymphocyte Count 2.27 X10^3/uL (0.83-4.51); Absolute Neutrophil Count 4.5 X10^3/uL (2.0-7.7); Basophil# 0.14 X10^3/uL; Basophil% 1.8 % (0-1); Eosinophil# 0.18 X10^3/uL; Eosinophils% 2.4 % (0-5); Hematocrit 30.1 % (40-54); Hemoglobin 9.3 g/dL (13.0-16.5); Lymphocyte # 2.27 X10^3/ul (4.0); Lymphocyte % 29.8 % (19-41); Mean Corp Hgb Conc 30.9 g/dL (32-36); Mean Corpuscular Hgb 26.6 pg (27.0-32.0); Mean Platelet Vol. 8.7 fl (6.2-12.0); Monocyte# 0.48 X10^3/uL; Monocyte% 6.3 % (0-10); NRBC Flagged by Analyzer 0 % (0-5); Neutrophil # 4.52 X10^3/uL (2.7-7.7); Neutrophil % 59.3 % (47-70); POSITIVE COUNT YES; RBC Distribution Width CV 19.4 % (11.6-14.6); White Blood Count 7.6 K/mm3 (4.4-11.0)
[2020-07-03 11:34] LABS: Alanine Aminotransfer ALT/SGPT 20 U/L (16-61); Creatinine, Serum 0.75 mg/dL (0.70-1.30); EST Glomerular Filtration Rate 123 mL/min (>60); Est Glom Filt Rate - Afr Amer 148 mL/min (>60)
[2020-07-03 11:35] LABS: Platelet Count 860 K/mm3 (150-450)
[2020-07-04 13:26] LABS: Pathologist Review Reviewed
== END ==
PROVIDERS: PCP Internal Medicine
DX: J15.211 Pneumonia due to Methicillin susceptible Staphylococcus aureus (principal); J86.9 Pyothorax without fistula
CPT/HCPCS: 82565; 84460; 85025

== ENCOUNTER → 2022-02-28 | Outpatient (CLI) | payer OTHER, SELFPAY ==
[2022-02-28] VITALS (7 sets, daily range): BP systolic 123–154; BP diastolic 73–97; PULSE 60–75; RESP 14–16; TEMP 36.4–36.8; O2SAT 94–100; BMI 21.2
== END | disposition home or self-care (01) ==
LOC: MEDOUTP 09:23
PROVIDERS: PCP Internal Medicine; Referring Provider Nurse Practitioner; Visit Provider Nurse Practitioner
DX: D64.9 Anemia, unspecified (principal)
CPT/HCPCS: 36415; 36430; 86850; 86900; 86901; 86920; 86922; P9016

== ENCOUNTER → 2022-06-14 | Outpatient (CLI) | payer OTHER, SELFPAY ==
[2022-06-14 11:13] LABS: Absolute Lymphocyte Count 1.16 X10^3/uL (0.83-4.51); Absolute Neutrophil Count 4.8 X10^3/uL (2.0-7.7); Basophil# 0.02 X10^3/uL; Basophil% 0.3 % (0-1); Eosinophil# 0.22 X10^3/uL; Eosinophils% 3.4 % (0-5); Hematocrit 38.9 % (40-54); Hemoglobin 12.6 g/dL (13.0-16.5); Lymphocyte # 1.16 X10^3/ul (0.83-4.51); Lymphocyte % 17.8 % (19-41); Mean Corp Hgb Conc 32.4 g/dL (32-36); Mean Corpuscular Hgb 29.9 pg (27.0-32.0); Mean Corpuscular Volume 92.4 fL (80-94); Mean Platelet Vol. 9.5 fl (6.2-12.0); Monocyte# 0.27 X10^3/uL; Monocyte% 4.1 % (0-10); NRBC Flagged by Analyzer 0 % (0-5); Neutrophil # 4.82 X10^3/uL (2.7-7.7); Neutrophil % 73.9 % (47-70); Platelet Count 355 K/mm3 (150-450); RBC Distribution Width CV 15.5 % (11.6-14.6); RBC Distribution Width SD 49.7 fl (35.1-43.9); Red Blood Count 4.21 M/mm3 (4.6-6.2); White Blood Count 6.5 K/mm3 (4.4-11.0)
[2022-06-14 11:20] LABS: Erythrocyte Sedimentation Rate 33 mm/hr (0-20)
[2022-06-14 11:37] LABS: ALB/GLOB Ratio 0.9 RATIO (0.9-2.4); AST(SGOT) 15 U/L (15-37); Alanine Aminotransfer ALT/SGPT 19 U/L (16-61); Albumin, Serum 3.3 g/dL (3.2-5.0); Alkaline Phosphatase 87 U/L (45-117); Anion Gap 6 (5-15); BUN 14 mg/dL (7-18); BUN/Creat Ratio 12.2 RATIO (10-20); CRP 3.97 mg/L (0.0-3.0); Calcium,Total 7.8 mg/dL (8.5-10.1); Chloride 106 mmol/L (98-107); Creatinine, Serum 1.15 mg/dL (0.70-1.30); EST Glomerular Filtration Rate 74 mL/min (>60); Est Glom Filt Rate - Afr Amer 90 mL/min (>60); Ferritin 102 ng/mL (26-388); Globulin 3.7 g/dL (2.2-4.2); Glucose 105 mg/dL (74-106); Iron 87 ug/dL (65-175); Iron Binding Capacity,Total 284 ug/dL (250-450); LDH 170 U/L (87-241); PERCENT IRON SATURATION 30.6 % (15.0-55.0); Potassium 3.8 mmol/L (3.5-5.1); Sodium Level 139 mmol/L (136-145)
[2022-06-17 13:07] LABS: Endomysial Antibody IgA Negative (Negative)
[2022-06-17 13:21] LABS: Immunoglobulin A 353 mg/dL (90-386); t-Transglutaminase IgA <2 U/mL (0-3)
[2022-06-17 17:07] LABS: Anti-Centromere B Ab <0.2 AI (0.0-0.9); Anti-Chromatin <0.2 AI (0.0-0.9); Anti-Jo <0.2 AI (0.0-0.9); Anti-Scleroderma-70 AB <0.2 AI (0.0-0.9); RNP Ab <0.2 AI (0.0-0.9); SJOGREN'S Anti-SS-A test 0.2 AI (0.0-0.9); SJOGREN'S Anti-SS-B test < 0.2 AI (0.0-0.9); Smith Ab <0.2 AI (0.0-0.9)
[2022-06-17 20:42] LABS: Anti-dsDNA Ab <1 IU/mL (0-9)
[2022-06-19 15:08] LABS: Albumin 3.3 g/dL (2.9-4.4); Alpha-1-Globulins 0.3 g/dL (0.0-0.4); Alpha-2-Globulins 0.8 g/dL (0.4-1.0); Cytoplasmic Ab (C-ANCA) >1:640 titer (Neg:<1:20); Gamma Globulin 1.2 g/dL (0.4-1.8); HEPATITIS B SURFACE AG Negative (Negative); Hep C Antibodies 0.2 s/co ratio (0.0-0.9); Hepatitis A IgM Antibody Negative (Negative); Hepatitis B Core AB IgM Negative (Negative); Immunoglobulin A 344 mg/dL (90-386); Immunoglobulin G 943 mg/dL (603-1613); Immunoglobulin M 230 mg/dL (20-172); PROEL- TOTAL PROTEIN 6.5 g/dL (6.0-8.5)
[2022-06-21 13:25] LABS: Immunoglobulin E 19 IU/mL (6-495); Perinuclear Ab (P-ANCA) <1:20 titer (Neg:<1:20)
== END | disposition home or self-care (01) ==
PROVIDERS: PCP Internal Medicine; Referring Provider Internal Medicine Gastroenterology; Visit Provider Internal Medicine Gastroenterology
DX: K50.90 Crohn's disease, unspecified, without complications (principal); K56.609 Unspecified intestinal obstruction, unspecified as to partial versus complete obstruction
CPT/HCPCS: 36415; 80053; 80074; 82728; 82784; 82785; 83516; 83540; 83550; 83615; 84165; 85025; 85652; 86140; 86225; 86235; 86255; 86256; 86334

== ENCOUNTER → 2022-06-25 | Outpatient (CLI) | payer OTHER, SELFPAY ==
[2022-06-30 14:16] LABS: Pancreatic Elastase, Fecal 173 (>200)
[2022-06-30 14:18] LABS: Calprotectin, Stool 43 ug/g (0-120); Fats, Neutral Normal (.); Fats, Total Increased (.)
== END | disposition home or self-care (01) ==
LOC: LABSPEC 13:37
PROVIDERS: PCP Internal Medicine; Referring Provider Internal Medicine Gastroenterology; Visit Provider Internal Medicine Gastroenterology
DX: K50.90 Crohn's disease, unspecified, without complications (principal); K56.609 Unspecified intestinal obstruction, unspecified as to partial versus complete obstruction
CPT/HCPCS: 82274; 82653; 82705; 83630; 83993; 87177; 87209; 87329; 87493; 87506

== ENCOUNTER → 2022-09-16 | Outpatient (CLI) | payer OTHER, SELFPAY ==
[2022-09-16 11:25] LABS: Erythrocyte Sedimentation Rate 13 mm/hr (0-20)
[2022-09-16 11:27] LABS: Absolute Lymphocyte Count 1.68 X10^3/uL (0.83-4.51); Absolute Neutrophil Count 3.4 X10^3/uL (2.0-7.7); Basophil# 0.03 X10^3/uL; Basophil% 0.5 % (0-1); Eosinophil# 0.18 X10^3/uL; Eosinophils% 3.1 % (0-5); Hematocrit 42.9 % (40-54); Hemoglobin 14.7 g/dL (13.0-16.5); Lymphocyte # 1.68 X10^3/ul (0.83-4.51); Lymphocyte % 28.6 % (19-41); Mean Corp Hgb Conc 34.3 g/dL (32-36); Mean Corpuscular Hgb 32.7 pg (27.0-32.0); Mean Corpuscular Volume 95.3 fL (80-94); Mean Platelet Vol. 9.3 fl (6.2-12.0); Monocyte# 0.52 X10^3/uL; Monocyte% 8.9 % (0-10); NRBC Flagged by Analyzer 0 % (0-5); Neutrophil # 3.44 X10^3/uL (2.7-7.7); Neutrophil % 58.6 % (47-70); Platelet Count 392 K/mm3 (150-450); RBC Distribution Width CV 13.2 % (11.6-14.6); RBC Distribution Width SD 46.8 fl (35.1-43.9); White Blood Count 5.9 K/mm3 (4.4-11.0)
[2022-09-16 11:47] LABS: ALB/GLOB Ratio 0.9 RATIO (0.9-2.4); AST(SGOT) 20 U/L (15-37); Alanine Aminotransfer ALT/SGPT 19 U/L (16-61); Albumin, Serum 3.9 g/dL (3.2-5.0); Alkaline Phosphatase 101 U/L (45-117); Anion Gap 8 (5-15); BUN 8 mg/dL (7-18); BUN/Creat Ratio 6.4 RATIO (10-20); CRP 5.13 mg/L (0.0-3.0); Calcium,Total 8.7 mg/dL (8.5-10.1); Chloride 100 mmol/L (98-107); Creatinine, Serum 1.25 mg/dL (0.70-1.30); EST Glomerular Filtration Rate 67 mL/min (>60); Est Glom Filt Rate - Afr Amer 82 mL/min (>60); Globulin 4.5 g/dL (2.2-4.2); Glucose 99 mg/dL (74-106); LDH 165 U/L (87-241); Potassium 3.2 mmol/L (3.5-5.1); Protein, Total 8.4 g/dL (6.4-8.2); Sodium Level 134 mmol/L (136-145)
[2022-09-16 11:49] LABS: Rubella IgG Reactive (Nonreactive)
[2022-09-18 21:07] LABS: Albumin 3.8 g/dL (2.9-4.4); Alpha-1-Globulins 0.2 g/dL (0.0-0.4); Gamma Globulin 1.3 g/dL (0.4-1.8); HEPATITIS B SURFACE AG Negative (Negative); Hep C Antibodies Non Reactive (Non Reactive); Hepatitis A IgM Antibody Negative (Negative); Hepatitis B Core AB IgM Negative (Negative); Immunoglobulin A 422 mg/dL (90-386); Immunoglobulin G 1200 mg/dL (603-1613); Immunoglobulin M 299 mg/dL (20-172); PROEL- TOTAL PROTEIN 7.5 g/dL (6.0-8.5); QNTFERON TB Mitogen Value > 10.00 IU/mL (.); QNTFERON TB Nil Value 0.05 IU/mL (.); QNTFERON TB1+ Ag Value 0.05 IU/mL (.); QNTFERON TB2+ Ag Value 0.05 IU/mL (.)
[2022-09-18 22:11] LABS: B. pertussis IgG 1.74 index (0.00-0.94); Mumps Antibody, IgM < 0.80 AU (0.00-0.79); QNTIFERON TB Positive Criteria Negative (Negative); V-Zoster IgG (Immunity) 2596 index (Immune >165)
== END | disposition home or self-care (01) ==
PROVIDERS: PCP Internal Medicine; Referring Provider Internal Medicine Gastroenterology; Visit Provider Internal Medicine Gastroenterology
DX: K50.90 Crohn's disease, unspecified, without complications (principal)
CPT/HCPCS: 36415; 80053; 80074; 82784; 83615; 84165; 85025; 85652; 86140; 86334; 86480; 86615; 86735; 86762; 86787

== ENCOUNTER 2023-09-16 15:07 | Inpatient (IN) | payer MEDICAID, SELFPAY ==
[2023-09-16] VITALS (13 sets, daily range): BP systolic 152–192; BP diastolic 103–127; PULSE 73–106; RESP 14–32; TEMP 36.1–37; O2SAT 94–99; BMI 20.9; BMI 20.7
--- NOTE | 2023-09-16 16:16 | EKG12_ITS ---
Test Reason : HTN Blood Pressure : / mmHG Vent. Rate : 086 BPM Atrial Rate : 086 BPM P-R Int : 150 ms QRS Dur : 104 ms QT Int : 392 ms P-R-T Axes : 029 006 029 degrees QTc Int : 469 ms Normal sinus rhythm Incomplete right bundle branch block Nonspecific ST and T wave abnormality Abnormal ECG Confirmed by Jose Anderson ([id number]), editor news XIMENA BARROSO ([id number]) on 09/17/2023 9:37:43 AM Referred By: Confirmed By:Jose Anderson
--- NOTE | 2023-09-16 16:17 | EDS_ITS ---
HPI History of Present Illness Chief Complaint: Hypertension Informant: patient and parent Narrative Narrative: 42-year-old male presenting to the emergency department with a constellation of symptoms. He ask his mother to provide some background. Patient has noticed that he has had hypertension for about 1 year. He states he went to his doctor's office about 3 weeks ago. He states he was hypertensive. He had blood work drawn and tells me that his white blood cell count was very high . He is supposed to follow-up for repeat blood work and check of blood pressure. Mom states that they were very upset that they were let go from that appointment . Patient states that he has a history of Crohn's disease and underwent total colectomy in the past. He notes no change in stool. He states that he broke his right foot and has chronic sensory changes of it but the left foot intermittently goes numb . He states he intermittently has headaches. He notes the occasional dyspnea but no chest pain. He is mom states that he has been losing weight but then the patient tells me that he has gained weight recently. He states that appetite is another issue . Patient notes no vision or hearing changes. Mom states that it seems that he slurs his speech occasionally. Patient states that he always is slurred his speech and that maybe it is worse recently. Mom states that his hands shake. Patient denies any drug or alcohol use. He denies any urinary symptoms. No rashes. He is not currently taking any medications. [facility] Medical History Abscess of anal and rectal regions ADD (attention deficit disorder) Anxiety Asthma Depression History of alcoholism Iron deficiency anemia Mild intermittent asthma with (acute) exacerbation Neuropathy Orthostatic hypotension Home Medications ferrous sulfate 325 mg (65 mg iron) tablet 325 mg PO BID 03/27/22 [History Last Taken Unknown] amlodipine 10 mg tablet 10 mg PO DAILY #30 tabs 09/16/23 [Rx Last Taken Unknown] Allergy/AdvReac Type Severity Reaction Status Date / Time No Known Allergies Allergy Verified 09/16/23 15:08 Family History Father Hyperlipidemia Hypertension Surgical History Ileostomy status Status post colectomy Social History Smoking Status: Former smoker ROS ROS ED Constitutional Constitutional ED: Reports weight loss and other Details: Weight gain ; Denies chills or fever(s) Eyes Eyes: Denies blurry vision, change in vision or diplopia ENT ENT ED: Denies ear pain, rhinorrhea or sore throat Cardiovascular Cardiovascular: Denies chest pain, orthopnea, palpitations or racing heartbeat Respiratory/Chest Respiratory/Chest: Reports other Details: Occasional dyspnea ; Denies cough or orthopnea Gastrointestinal Gastrointestinal: Reports other Details: No blood in ostomy bag. No change in stool output. ; Denies abdominal pain, nausea or vomiting Genitourinary Genitourinary ED: Denies dysuria, hematuria or urinary frequency Musculoskeletal Musculoskeletal: Denies arthralgias or myalgias Integumentary Denies abscess or rash Neurologic Neurologic: Reports headache(s) and other Details: Intermittent slurred speech, intermittent hand tremors, intermittent paresthesias/ numbness of feet ; Denies weakness Psychiatric Psychiatric: Denies anxiety, depression, suicidal ideation or suicidal thoughts Endocrine Endocrinology: Denies polydipsia, polyphagia or polyuria Allergic/Immunologic Allergic/Immunologic ED: Denies mouth swelling, tongue swelling or urticaria EXAM Physical Exam Const Vital Signs: 09/16/23 15:08 09/16/23 16:39 09/16/23 16:41 Temperature 97 F L Temperature Source Temporal Pulse Rate 106 H 78 Respiratory Rate 20 H 32 H Respiratory Effort Normal Non-Labored Respiratory Pattern Normal Blood Pressure 175/123 H 189/119 H Blood Pressure Mean 140 142 Pulse Ox 97 94 Oxygen Delivery Method Room Air Room Air 09/16/23 17:16 09/16/23 17:47 09/16/23 18:32 Temperature Temperature Source Pulse Rate 73 78 90 Respiratory Rate 24 H 16 Respiratory Effort Respiratory Pattern Blood Pressure 173/120 H 176/124 H 183/103 H Blood Pressure Mean 137 141 129 Pulse Ox 96 97 Oxygen Delivery Method Room Air 09/16/23 18:55 09/16/23 18:59 Temperature Temperature Source Pulse Rate 86 Respiratory Rate 14 Respiratory Effort Respiratory Pattern Blood Pressure 162/121 H 152/105 H Blood Pressure Mean 134 120 Pulse Ox 99 Oxygen Delivery Method Room Air Positive well nourished and well developed General Appearance ED: well developed HEENT Reports normocephalic, head/scalp atraumatic and moist mucous membranes Eyes PERRL and EOMs intact bilaterally Neck no lymphadenopathy, supple and no JVD Resp normal respiratory effort and clear to auscultation bilaterally Cardio regular rate, regular rhythm and no murmurs GI normal to inspection, nondistended, normoactive bowel sounds and non-tender GI Narrative: Ostomy in place Palpation: soft; Negative for tender Back/Spine no CVA tenderness and normal ROM Extremity Extremity Narrative: There is a deformity of the left third MCP joint which the patient states is from a fall where he was recently diagnosed with a fracture and is due to see orthopedics next week General Extremety ED: Negative for edema General Extremity: Negative for edema Neuro oriented x3 and CN's II-XII intact bilaterally Neuro Narrative: Patient appears to have an intention tremor to bilateral hands Sensorium / Orientation: alert Sensory Exam: No sensory level loss detected Motor Exam: strength 5/5 throughout Psych mental status grossly normal Mood & Affect: Negative for depressed or tearful Skin no rashes or lesions noted and no wounds MDM MDM MDM Narrative Medical decision making narrative: White count 17.1 with 89.8 neutrophils. Hemoglobin 14.3 and platelet count of 380. Electrolytes are normal sodium 135 potassium 4.3. CO2 26 anion gap of 8. Creatinine 1.35. Glucose 121. Total bilirubin 1.5 direct bilirubin 0.52 AST of 53 and ALT of 44. Troponin normal. Lipase 59. Urinalysis does show protein but no overt infection. Toxicology screen is negative. CT of the brain shows no acute findings. My independent interpretation of the chest x-ray is no acute process. The patient received a dose of amlodipine his blood pressure has come down currently 152/105 and this is on a manual. I go back and review the findings with the patient. He still has tremor. He is now extremely diaphoretic and anxious. I did speak with him in private without his mom in the room. The patient states that he rarely drinks but he does state that this does feel a lot like withdrawal. He states he just wants something to help him go to sleep. I am concerned that what is going on may not be fully elu cidated at this point. I will speak with the hospitalist regarding admission and patient is comfortable with this. I am going to give him a dose of Ativan in the interim. History & Record Review Discussion w/independent historian: Patient and Family Lab Data Attestation: I reviewed the patient's lab results. Labs: Laboratory Results - last 24 hr 09/16/23 09/16/23 09/16/23 16:24 17:43 17:45 WBC 17.1 H RBC 4.37 L Hgb 14.3 Hct 41.7 MCV 95.4 H MCH 32.7 H MCHC 34.3 RDW Std Deviation 52.1 H RDW Coeff of Nish 14.8 H Plt Count 380 MPV 9.3 Immature Gran % (Auto) 0.400 Neut % (Auto) 89.8 H Lymph % (Auto) 4.9 L [place] % (Auto) 4.4 Eos % (Auto) 0.1 Baso % (Auto) 0.4 Absolute Neuts (auto) 15.4 H Absolute Lymphs (auto) 0.84 Nucleated RBC % 0 PT 13.4 INR 1.0 APTT 30.7 Sodium 135 L Potassium 4.3 Chloride 101 Carbon Dioxide 26.0 Anion Gap 8 BUN 14 Creatinine 1.35 H Estim Creat Clear Calc 74.73 Est GFR (MDRD) Af Amer 74 Est GFR (MDRD) Non-Af 61 BUN/Creatinine Ratio 10.4 Glucose 121 H Calcium 9.9 Total Bilirubin 1.50 H Direct Bilirubin 0.52 H AST 53 H ALT 44 Alkaline Phosphatase 163 H Troponin I High Sens 10 Total Protein 9.1 H Albumin 3.8 Globulin 5.3 H Lipase 59 Urine Color Yellow Urine Clarity Clear Urine pH 5.0 Ur Specific Swain 1.020 Urine Protein 100 H Urine Glucose (UA) Normal Urine Ketones 5 H Urine Occult Blood 25 H Urine Nitrite Negative Urine Bilirubin Negative Urine Urobilinogen 1 H Ur Leukocyte Esterase 25 H Urine RBC 0-5 SEEN Urine WBC 0-5 SEEN Ur Squamous Epith Cells 0 SEEN Urine Bacteria RARE Hyaline Casts 5-10 SEEN Urine Mucus RARE Urine Opiates Screen NEGATIVE Urine Methadone Screen NEGATIVE Ur Barbiturates Screen NEGATIVE Ur Phencyclidine Scrn NEGATIVE Ur Amphetamines Screen NEGATIVE MDMA (Ecstasy) Screen NEGATIVE U Benzodiazepines Scrn NEGATIVE Urine Cocaine Screen NEGATIVE U Cannabinoids Screen POSITIVE H Ur Drug Screen Comment Ethyl Alcohol 6.0 Radiography Diagnostic Testing: Clinical Impression(s) from Imaging Studies Brain CT 09/16/23 17:07 IMPRESSION: Normal unenhanced CT scan of the brain. Minor bilateral maxillary and ethmoid sinus disease likely chronic Electronically Signed: Chevy Liu MD at 17:44 EST , Chest X-Ray 09/16/23 17:30 IMPRESSION: No acute cardiopulmonary pathology. Electronically Signed: Chevy Liu MD at 17:46 EST , EKG Initial EKG: Attestation: I personally reviewed and interpreted this EKG as follows: Comments: Normal sinus rhythm with a ventricular rate of 86 bpm. Discharge Plan Dx/Rx/DC Orders Clinical Impression: Headache, Leukocytosis, Proteinuria, Tremor, Hypertension Disposition Disposition: Acute Care [facility]
[2023-09-16 16:34] LABS: Absolute Lymphocyte Count 0.84 X10^3/uL (0.83-4.51); Absolute Neutrophil Count 15.4 X10^3/uL (2.0-7.7); Basophil# 0.07 X10^3/uL; Basophil% 0.4 % (0-1); Eosinophil# 0.01 X10^3/uL; Eosinophils% 0.1 % (0-5); Hematocrit 41.7 % (40-54); Hemoglobin 14.3 g/dL (13.0-16.5); Lymphocyte # 0.84 X10^3/ul (0.83-4.51); Lymphocyte % 4.9 % (19-41); Mean Corp Hgb Conc 34.3 g/dL (32-36); Mean Corpuscular Hgb 32.7 pg (27.0-32.0); Mean Corpuscular Volume 95.4 fL (80-94); Mean Platelet Vol. 9.3 fl (6.2-12.0); Monocyte# 0.76 X10^3/uL; Monocyte% 4.4 % (0-10); NRBC Flagged by Analyzer 0 % (0-5); Neutrophil # 15.39 X10^3/uL (2.7-7.7); Neutrophil % 89.8 % (47-70); Platelet Count 380 K/mm3 (150-450); RBC Distribution Width CV 14.8 % (11.6-14.6); RBC Distribution Width SD 52.1 fl (35.1-43.9); Red Blood Count 4.37 M/mm3 (4.6-6.2); White Blood Count 17.1 K/mm3 (4.4-11.0)
[2023-09-16 16:47] LABS: Partial Thromboplast Time 30.7 Seconds (24.1-36.2); Prothrombin Time (Protime)PT. 13.4 SECONDS (11.7-14.9)
[2023-09-16 16:56] LABS: AST(SGOT) 53 U/L (15-37); Alanine Aminotransfer ALT/SGPT 44 U/L (16-61); Albumin, Serum 3.8 g/dL (3.2-5.0); Alkaline Phosphatase 163 U/L (45-117); Anion Gap 8 (5-15); BUN 14 mg/dL (7-18); BUN/Creat Ratio 10.4 RATIO (10-20); Bilirubin, Direct 0.52 mg/dL (0.00-0.30); Calcium,Total 9.9 mg/dL (8.5-10.1); Chloride 101 mmol/L (98-107); Creatinine, Serum 1.35 mg/dL (0.70-1.30); EST Glomerular Filtration Rate 61 mL/min (>60); Est Glom Filt Rate - Afr Amer 74 mL/min (>60); Estimated Creatinine Clearance 74.73 ml/min; Globulin 5.3 g/dL (2.2-4.2); Glucose 121 mg/dL (74-106); Lipase 59 U/L (13-75); Potassium 4.3 mmol/L (3.5-5.1); Protein, Total 9.1 g/dL (6.4-8.2); Sodium Level 135 mmol/L (136-145); Troponin-I HS 10 pg/mL (3.0-78.0)
--- NOTE | 2023-09-16 17:07 | CT_ITS ---
STUDY: CT BRAIN WITHOUT CONTRAST REASON FOR EXAM: Male, 42 years old. headache RADIATION DOSAGE (If Supplied By Facility): CTDIvol = ( 44.99 ) mGy, DLP = ( 846.73 ) mGycm TECHNIQUE: Transaxial CT imaging of the brain was performed without administration of intravenous contrast material. Individualized dose optimization techniques were used for this CT. COMPARISON: January 07, 2020 FINDINGS: Normal soft tissue structures. Normal calvarium. Normal size ventricles and extra-axial spaces for the patient''s age. Normal white matter tracts of the cerebral hemispheres. Normal basal ganglia and thalami. Normal brainstem. Normal cerebellum. There is no intracranial hemorrhage. There are no findings of an acute ischemic infarction. Minor mucosal thickening of the bilateral maxillary and ethmoid air cells CT/Brain/Head without Contrast IMPRESSION: Normal unenhanced CT scan of the brain. Minor bilateral maxillary and ethmoid sinus disease likely chronic Electronically Signed: Chevy Liu MD at 17:44 EST ,
--- NOTE | 2023-09-16 17:30 | RAD_ITS ---
STUDY: X-RAY CHEST REASON FOR EXAM: Male, 42 years old. hypertension TECHNIQUE: AP portable COMPARISON: June 20, 2020 FINDINGS: Lungs are mildly hyperinflated but clear. There is no demonstrated pleural abnormality. Normal size heart. Normal mediastinum and valentino. Normal visualized pulmonary arteries. Mildly calcified aortic arch and descending thoracic aorta. Normal visualized thoracic spine. Normal visualized ribs, clavicles, and shoulders. There is no demonstrated abnormality of the visualized soft tissue structures of the upper abdomen. Previously noted left lower lobe infiltrate has resolved RAD/Chest 1 View (Portable) IMPRESSION: No acute cardiopulmonary pathology. Electronically Signed: Chevy Liu MD at 17:46 EST ,
[2023-09-16] MEDS: amLODIPine 10 MG Tablet PO (17:41)
[2023-09-16 17:55] LABS: Squamous Epithelial Cells - UA 0 SEEN /hpf (0-5)
[2023-09-16 17:57] LABS: Color, Urine Yellow (Yellow); Glucose, Dipstick Normal (Normal); Ketone-Dipstick 5 mg/dl (Negative); Leukocyte Esterase-Dipstick 25 /ul (Negative); Nitrite-Dipstick Negative (Negative); Occult Blood-Urine 25 /ul (Negative); Protein-Dipstick 100 mg/dl (Negative); Urine Bilirubin Dipstick Negative (Negative); Urine Clarity Clear (Clear); Urine Urobilinogen 1 mg/dl (Normal)
[2023-09-16 18:03] LABS: Bacteria RARE /hpf (None Seen); Hyaline Cast 5-10 SEEN /lpf (0-5); Mucous, Urine RARE /hpf (<or=2+); Red Blood Cells-Urine 0-5 SEEN /hpf (0-5); White Blood Cells 0-5 SEEN /hpf (0-5)
[2023-09-16 18:11] LABS: Amphetamine Urine VISTA NEGATIVE (<1000 ng/mL); Barbiturate Urine VISTA NEGATIVE (< 200 ng/mL); Benzodiazepine Urine VISTA NEGATIVE (< 200 ng/mL); Cocaine Urine VISTA NEGATIVE (< 300 ng/mL); Ecstacy Urine VISTA NEGATIVE (< 500 ng/mL); Methadone Urine VISTA NEGATIVE (< 300 ng/mL); PCP Urine VISTA NEGATIVE (< 25 ng/mL); THC Urine VISTA POSITIVE (< 50 ng/mL); Vista UDS pH Range 5
--- NOTE | 2023-09-16 19:29 | HP.PCM.HOS_ITS ---
HPI - General General Date of Admission: 09/16/23 Date of Service: 09/16/23 Chief Complaint: Tremors, diaphoresis, concern EtOH withdrawal HPI Narrative The patient is a 42 y/o M w/ PMHx: Crohn's disease s/p colectomy remotely, Anxiety and Depression/ADD, Asthma, Hx Alcoholism but upon ED evaluation high clinical concern for ongoing abuse, Chronic anemia/Fe deficiency anemia, Chronic Neuropathy (chart reported), Orthostatic hypotension, Former tobacco use who presents to the [facility] ED on 09/16/23 with history of ongoing hypertension for nearly 1 year with evaluation at his primary care office approximately 3 weeks prior with blood work drawn and noted elevated WBC at that time with planned follow-up lab work and repeat BP assessment outpatient however per patient and his mother they were upset in addition to a myriad of complaints of intermittent headaches, history of right foot fracture with chronic sensory changes however occasionally his left foot will be numb intermittently which again is chronic with occasional dyspnea as well and patient himself reports weight gain recently although mother saying he is losing weight however there is potentially a psychiatric component to that as well as intermittent altered speech and hand shaking prompting eventual ED evaluation. Patient denies any substance abuse. Patient in privacy discussed his alcohol intake with ED physician and again seems to be very hesitant about discussions in front of his mother. In the ED patient administered Norvasc 10 mg p.o. x 1 as well as Ativan 1 mg IV x 1. Workup in the ED included T97, heart rate 106 initially with most recent repeat 86, BP initially 175/123 with most recent repeat 152/105, respiratory rate 20, 97% on room air, CBC with WBC 17.1, hemoglobin 14.3, platelet 380 with left shift, unremarkable coags, CMP with sodium 135, BUN/creatinine 14/1.35, glucose 121, T. bili 1.50, T. bili 0.52, AST/LT 53/43, alk phos 163, troponin 10, lipase 59, urinalysis with specific remedy 1.20, protein 100, ketone 5, occult blood 25, negative nitrite, leukocyte Estrace 25 with no urine RBCs or WBCs, rare urine bacteria, UDS with positive cannabis, ethyl alcohol 6, CT the brain with minor bilateral maxillary and ethmoid sinus disease likely chronic otherwise no acute intracranial findings, chest x-ray with no acute cardiopulmonary findings, EKG with SR without acute evidence of ischemia. In the ED patient ministered Norvasc 10 mg p.o. x 1 as well as Ativan 1 mg IV x 2. [facility] Medical History Abscess of anal and rectal regions ADD (attention deficit disorder) Anxiety and depression Asthma Crohn's disease Former tobacco use History of alcoholism Iron deficiency anemia Neuropathy Non-nicotine vapor product user Orthostatic hypotension Home Medications ferrous sulfate 325 mg (65 mg iron) tablet 325 mg PO BID SUPPLEMENT 03/27/22 [History Last Taken Unknown] amlodipine 10 mg tablet 10 mg PO DAILY #30 tabs 09/16/23 [Rx Last Taken Unknown] Allergy/AdvReac Type Severity Reaction Status Date / Time No Known Allergies Allergy Verified 09/16/23 15:08 Family History Father Hyperlipidemia Hypertension Mother No problems noted. Surgical History Ileostomy status Status post colectomy Social History (Updated 09/17/23 @ 03:[address] Liz Sandoval MD) household members: none Smoking Status: Former smoker Electronic Cigarette Use: without nicotine alcohol intake: current details: Former heavy ~ 30 beers/day, now only occasionally, but poor informant. substance use type: does not use ROS ROS Narrative Admission Review of Systems: CONSTITUTIONAL: No weight loss, fever, chills, + weakness or fatigue. HEENT: Eyes: No visual loss, blurred vision, double vision or yellow sclerae. Ears, Nose, Throat: No hearing loss, sneezing, congestion, runny nose or sore throat. SKIN: No rash or itching, lesions, wounds. CARDIOVASCULAR: No chest pain, chest pressure or chest discomfort, palpitations, edema, orthopnea, syncopal events. RESPIRATORY: No shortness of breath, cough or sputum, wheezing, hemoptysis. GASTROINTESTINAL: + anorexia, nausea. No vomiting or diarrhea, abdominal pain, melena, BRBPR. GENITOURINARY: No dysuria, frequency, urgency or retention. NEUROLOGICAL: + headache, chronic bilateral lower extremity paresthesias, frequent falls, tremors, tactile disturbances. No paralysis, ataxia, numbness or tingling in the extremities, focal weakness, change in bowel or bladder control, seizure. MUSCULOSKELETAL: + muscle, back pain, joint pain or stiffness. HEMATOLOGIC: + anemia. No reported bleeding or bruising. LYMPHATICS: No enlarged nodes. No history of splenectomy. PSYCHIATRIC: + History of anxiety and depression. ENDOCRINOLOGIC: + reports of sweating. No cold or heat intolerance. No polyuria or polydipsia. ALLERGIES: No history of asthma, hives, eczema or rhinitis. Vital Signs Vital Signs Vital Signs: 09/16/23 15:08 09/16/23 16:39 09/16/23 16:41 Temperature 97 F L Temperature Source Temporal Pulse Rate 106 H 78 Respiratory Rate 20 H 32 H Respiratory Effort Normal Non-Labored Respiratory Pattern Normal Blood Pressure 175/123 H 189/119 H Blood Pressure Mean 140 142 Pulse Ox 97 94 Oxygen Delivery Method Room Air Room Air 09/16/23 17:16 09/16/23 17:47 09/16/23 18:32 Temperature Temperature Source Pulse Rate 73 78 90 Respiratory Rate 24 H 16 Respiratory Effort Respiratory Pattern Blood Pressure 173/120 H 176/124 H 183/103 H Blood Pressure Mean 137 141 129 Pulse Ox 96 97 Oxygen Delivery Method Room Air 09/16/23 18:55 09/16/23 18:59 Temperature Temperature Source Pulse Rate 86 Respiratory Rate 14 Respiratory Effort Respiratory Pattern Blood Pressure 162/121 H 152/105 H Blood Pressure Mean 134 120 Pulse Ox 99 Oxygen Delivery Method Room Air Weight Weight: 163 lb 6.4 oz Body Mass Index (BMI) 20.9 Physical Exam Narrative Physical Examination: General: Awake, alert, oriented to self, place and recent events, remains coope rative, seated upright in the ED bed, tremulous, diaphoretic, admits to nausea, appears to be in withdrawal but poor historian regarding alcohol intake. Skin: Normal color, normal turgor, no icterus, no cyanosis except occasional staged ecchymoses. HEENT: AT/NC, EOMI, PERRLA, dry MM, no carotid bruits or JVD noted. Lungs: CTA bilaterally, moderate effort, mild decrease BL bases, no rales, ronchi or wheezing. Heart: Tachycardic with regular rhythm; no gallop, rub audible. Abdomen: Soft, mild generalized discomfort with no rebound or guarding, status post previous colectomy with ostomy in place with appropriate output, no marked distention, hyperactive BS, ND, normal BS, no markedly appreciated HSM. Extremities: No cyanosis, clubbing, or edema. Neurological: Patient awake, alert, oriented as noted, cognitive function suspect mildly altered from baseline given suspected withdrawal acutely, pupils equally reactive to light and accommodation, cranial nerves grossly normal, moving all 4 extremities, no focal deficits, strength moderately to severely globally decreased, tremors evident, appears to be in withdrawal. Psychiatric: Affect appears mildly anxious, appears to be in withdrawal as noted, no acute evidence of depressive feelings but does have underlying history. Results Lab / Micro Data 09/16/23 16:24 09/16/23 16:24 Labs: Laboratory Results - last 24 hr 09/16/23 16:24: WBC 17.1 H, RBC 4.37 L, Hgb 14.3, Hct 41.7, MCV 95.4 H, MCH 32.7 H, MCHC 34.3, RDW Std Deviation 52.1 H, RDW Coeff of Nish 14.8 H, Plt Count 380, MPV 9.3, Immature Gran % (Auto) 0.400, Neut % (Auto) 89.8 H, Lymph % (Auto) 4.9 L, [place] % (Auto) 4.4, Eos % (Auto) 0.1, Baso % (Auto) 0.4, Absolute Neuts (auto) 15.4 H, Absolute Lymphs (auto) 0.84, Nucleated RBC % 0, PT 13.4, INR 1.0, APTT 30.7, Sodium 135 L, Potassium 4.3, Chloride 101, Carbon Dioxide 26.0, Anion Gap 8, BUN 14, Creatinine 1.35 H, Estim Creat Clear Calc 74.73, Est GFR (MDRD) Af Amer 74, Est GFR (MDRD) Non-Af 61, BUN/Creatinine Ratio 10.4, Glucose 121 H, Calcium 9.9, Total Bilirubin 1.50 H, Direct Bilirubin 0.52 H, AST 53 H, ALT 44, Alkaline Phosphatase 163 H, Troponin I High Sens 10, Total Protein 9.1 H, Albumin 3.8, Globulin 5.3 H, Lipase 59 09/16/23 17:43: Urine Color Yellow, Urine Clarity Clear, Urine pH 5.0, Ur Specific [place] 1.020, Urine Protein 100 H, Urine Glucose (UA) Normal, Urine Ketones 5 H, Urine Occult Blood 25 H, Urine Nitrite Negative, Urine Bilirubin Negative, Urine Urobilinogen 1 H, Ur Leukocyte Esterase 25 H, Urine RBC 0-5 SEEN, Urine WBC 0-5 SEEN, Ur Squamous Epith Cells 0 SEEN, Urine Bacteria RARE, Hyaline Casts 5-10 SEEN, Urine Mucus RARE, Urine Opiates Screen NEGATIVE, Urine Methadone Screen NEGATIVE, Ur Barbiturates Screen NEGATIVE, Ur Phencyclidine Scrn NEGATIVE, Ur Amphetamines Screen NEGATIVE, MDMA (Ecstasy) Screen NEGATIVE, U Benzodiazepines Scrn NEGATIVE, Urine Cocaine Screen NEGATIVE, U Cannabinoids Screen POSITIVE H, Ur Drug Screen Comment 09/16/23 17:45: Ethyl Alcohol 6.0 Imaging Radiology Impression Brain CT 09/16/23 17:07 IMPRESSION: Normal unenhanced CT scan of the brain. Minor bilateral maxillary and ethmoid sinus disease likely chronic Electronically Signed: Chevy Liu MD at 17:44 EST , Chest X-Ray 09/16/23 17:30 IMPRESSION: No acute cardiopulmonary pathology. Electronically Signed: Chevy Liu MD at 17:46 EST , Assessment & Plan Assessment/Plan (1) Alcohol withdrawal: PLAN: Plan The patient is a 42 y/o M w/ PMHx: Crohn's disease s/p colectomy remotely, Anxiety and Depression/ADD, Asthma, Hx Alcoholism but upon ED evaluation high clinical concern for ongoing abuse, Chronic anemia/Fe deficiency anemia, Chronic Neuropathy (chart reported), Orthostatic hypotension, Former tobacco use who presents to the [facility] ED on 09/16/23 with history of ongoing hypertension for nearly 1 year with evaluation at his primary care office approximately 3 weeks prior with blood work drawn and noted elevated WBC at that time with planned follow-up lab work and repeat BP assessment outpatient however per patient and his mother they were upset in addition to a myriad of complaints of intermittent headaches, history of right foot fracture with chronic sensory changes however occasionally his left foot will be numb intermittently which again is chronic with occasional dyspnea as well and patient himself reports weight gain recently although mother saying he is losing weight however there is potentially a psychiatric component to that as well as intermittent altered speech and hand shaking prompting eventual ED evaluation. #1. Concern for Acute EtOH Withdrawal w/ EtOH abuse chart reported prior: Will admit to [facility], routine labs obtained in the ED. Will initiate and continue on protocol with taper course of Phenobarbital, as needed gabapentin, Catapres, Bentyl, Vistaril, IV fluids, IV antiemetics, Tylenol as needed for pain. Will consult Case management for assistance for transition to next level of rehabili tation care. Mag, phos pending. Maintain on [facility] protocol concurrently. #2. Leukocytosis, unclear etiology, Previously noted remotely: Admission CBC with WBC 17.1 with left shift however from 2019 he did normalized at 7.6 07/03/2020 and most recently prior to current presentation 09/16/2022 WBC 5.9 thus it has seemed to fluctuate and could certainly be related to a myriad of components including mild dehydration given his renal function is elevated and his specific gravity is also elevated, procalcitonin requested, repeat CBC in AM. #3. Mild acute renal insufficiency on possible CKD component, unclear stage/unclear subtype: Admission BUN/creatinine 14/1.35, has also previously vacillated ranging 60-120 in a matter of weeks, current GFR 61, baseline creatinine primarily 0.7-1.1 from review of prior but has fluctuated, will hydrate and repeat CMP in AM. Patient would benefit from repeat labs to ascertain his exact baseline level. #4. Mild hyperbilirubinemia, elevated LFT, suspect related with acute presentation #1, #3: Admission CMP with T. bili 1.50, D bili 0.52, AST/LT 53/44, alk phos 163, previous bilirubins were normal, prior AST had been elevated but normalized and most recently 09/16/2022 AST 20, now 53, alk phos 163, previously 09/16/2022 101, has been occasionally elevated in the past, possibly related with acute presentation with some dehydration component, will continue as noted above and repeat CMP in AM. If remains elevated low threshold to obtain ultrasound to assess the right upper quadrant anatomy. #5. Elevated BP without prior reported HTN diagnosis: Will continue recently initiated norvasc, as needed IV hydralazine in interim, given #1 may not require marked amount of medication and this may need to be adjusted pending his response to withdrawal treatment as noted. #6. Chronic anemia/iron deficiency anemia: Admission hemoglobin 14.3, MCV 95.4, baseline hemoglobin in 2019 had been in the 9 range, 06/14/2022 hemoglobin 12.6 and most recently 09/16/2022 hemoglobin 14.7, will continue to trend CBC, continue Fe supplementation. #7. Crohn's disease: Status post total colectomy, ostomy in place, monitor output, encourage continued outpatient follow-up with Dr. Sampson as previously arranged. #8. Former tobacco use: Encourage continued tobacco use. #9. DVT prophylaxis: Low risk for type of admission, encourage ambulation. Charges/Coding Visit Charges Inpatient E&M: 73311 Init Hosp L3
[2023-09-16] MEDS: LORazepam 2 MG/ML Syringe 1 MG IV (20:22)
[2023-09-16 21:10] LABS: Magnesium 1.5 mg/dL (1.6-2.6); Phosphorus 2.8 mg/dL (2.5-4.9)
[2023-09-16 21:19] LABS: Procalcitonin 0.52 ng/mL (0.00-0.09)
[2023-09-16 21:43] LABS: Vitamin B12 459 pg/mL (211-911)
[2023-09-16] MEDS: Phenobarbital 32.4 MG Tablet 64.7999999999999972 MG PO (22:59)
[2023-09-16] MEDS: Lactated Ringers 1,000 ML 125 ML IV (22:59)
[2023-09-16] MEDS: traZODone 100 MG Tablet PO (23:08)
[2023-09-16] MEDS: hydrOXYzine PAM 25 MG Capsule 50 MG PO (23:08)
[2023-09-16] MEDS: hydrALAZINE 20 MG/ML Vial 10 MG IV (23:09)
[2023-09-17] VITALS (10 sets, daily range): BP systolic 133–176; BP diastolic 91–111; PULSE 82–146; RESP 16–18; TEMP 36.6–37.4; O2SAT 97–100
[2023-09-17] MEDS: Phenobarbital 32.4 MG Tablet 64.7999999999999972 MG PO ×6 (01:55→22:23)
[2023-09-17] MEDS: Magnesium Sulfate 2 GM in Dextrose 5%-Water (100mL Bag) 100 ML IV (03:42)
[2023-09-17] MEDS: 0.9% Saline Lock 10 ML Syringe IV ×2 (06:48→22:23)
[2023-09-17] MEDS: hydrALAZINE 20 MG/ML Vial 10 MG IV (06:52)
--- NOTE | 2023-09-17 07:55 | PN.HOSP_ITS ---
Reason for Visit Reason for Visit: Diagnoses Alcohol use, unspecified with withdrawal, unspecified (09/16/23) Objective Data Objective Data Vital Signs: Vital Signs Temp Pulse Resp BP Pulse Ox O2 Del Method 97.9 F 82 16 176/100 H 99 Room Air 09/17/23 06:45 09/17/23 06:52 09/17/23 06:45 09/17/23 06:52 09/17/23 06:45 09/17/23 06:45 Oxygen Delivery Method Room Air Weight: 73.5 kg Body Mass Index (BMI) 20.7 Intake & Output: Intake and Output for Last 24 Hours 09/15/23 09/16/23 09/17/23 23:59 23:59 23:59 Intake Total 693.58 / 693.58 Balance 693.58 / 693.58 Lab / Micro Data 09/16/23 16:24 09/16/23 16:24 Labs: Laboratory Results - last 24 hr 09/16/23 16:24: WBC 17.1 H, RBC 4.37 L, Hgb 14.3, Hct 41.7, MCV 95.4 H, MCH 32.7 H, MCHC 34.3, RDW Std Deviation 52.1 H, RDW Coeff of Nish 14.8 H, Plt Count 380, MPV 9.3, Immature Gran % (Auto) 0.400, Neut % (Auto) 89.8 H, Lymph % (Auto) 4.9 L, Gem % (Auto) 4.4, Eos % (Auto) 0.1, Baso % (Auto) 0.4, Absolute Neuts (auto) 15.4 H, Absolute Lymphs (auto) 0.84, Nucleated RBC % 0, PT 13.4, INR 1.0, APTT 30.7, Sodium 135 L, Potassium 4.3, Chloride 101, Carbon Dioxide 26.0, Anion Gap 8, BUN 14, Creatinine 1.35 H, Estim Creat Clear Calc 74.73, Est GFR (MDRD) Af Amer 74, Est GFR (MDRD) Non-Af 61, BUN/Creatinine Ratio 10.4, Glucose 121 H, Calcium 9.9, Phosphorus 2.8, Magnesium 1.5 L, Total Bilirubin 1.50 H, Direct Bilirubin 0.52 H, AST 53 H, ALT 44, Alkaline Phosphatase 163 H, Troponin I High Sens 10, Total Protein 9.1 H, Albumin 3.8, Globulin 5.3 H, Lipase 59, Vitamin B12 459, Folate 7.00 09/16/23 17:43: Urine Color Yellow, Urine Clarity Clear, Urine pH 5.0, Ur Specific [place] 1.020, Urine Protein 100 H, Urine Glucose (UA) Normal, Urine Ketones 5 H, Urine Occult Blood 25 H, Urine Nitrite Negative, Urine Bilirubin Negative, Urine Urobilinogen 1 H, Ur Leukocyte Esterase 25 H, Urine RBC 0-5 SEEN, Urine WBC 0-5 SEEN, Ur Squamous Epith Cells 0 SEEN, Urine Bacteria RARE, Hyaline Casts 5-10 SEEN, Urine Mucus RARE, Urine Opiates Screen NEGATIVE, Urine Methadone Screen NEGATIVE, Ur Barbiturates Screen NEGATIVE, Ur Phencyclidine Scrn NEGATIVE, Ur Amphetamines Screen NEGATIVE, MDMA (Ecstasy) Screen NEGATIVE, U Benzodiazepines Scrn NEGATIVE, Urine Cocaine Screen NEGATIVE, U Cannabinoids Screen POSITIVE H, Ur Drug Screen Comment 09/16/23 17:45: Procalcitonin 0.52 H, Ethyl Alcohol 6.0 Radiography Diagnostic Testing: Radiology Impression Brain CT 09/16/23 17:07 IMPRESSION: Normal unenhanced CT scan of the brain. Minor bilateral maxillary and ethmoid sinus disease likely chronic Electronically Signed: Chevy Liu MD at 17:44 EST Reading Location ID and State: [facility] / [place] Tel [phone], Service support , Chest X-Ray 09/16/23 17:30 IMPRESSION: No acute cardiopulmonary pathology. Electronically Signed: Chevy Liu MD at 17:46 EST , Physical Exam Narrative Physical Examination: General: Awake, alert, oriented to self, place and recent events, remains cooperative, seated upright in the ED bed, tremulous, diaphoretic, admits to nausea, appears to be in withdrawal but poor historian regarding alcohol intake. Skin: Normal color, normal turgor, no icterus, no cyanosis except occasional staged ecchymoses. HEENT: AT/NC, EOMI, PERRLA, dry MM, no carotid bruits or JVD noted. Lungs: CTA bilaterally, moderate effort, mild decrease BL bases, no rales, ronchi or wheezing. Heart: Tachycardic with regular rhythm; no gallop, rub audible. Abdomen: Soft, mild generalized discomfort with no rebound or guarding, status post previous colectomy with ostomy in place with appropriate output, no marked distention, hyperactive BS, ND, normal BS, no markedly appreciated HSM. Extremities: No cyanosis, clubbing, or edema. Neurological: Patient awake, alert, oriented as noted, cognitive function suspect mildly altered from baseline given suspected withdrawal acutely, pupils equally reactive to light and accommodation, cranial nerves grossly normal, moving all 4 extremities, no focal deficits, strength moderately to severely segundo bally decreased, tremors evident, appears to be in withdrawal. Psychiatric: Affect appears mildly anxious, appears to be in withdrawal as noted, no acute evidence of depressive feelings but does have underlying history. Assessment & Plan Assessment/Plan (1) Alcohol withdrawal: PLAN: Plan The patient is a 42 y/o M w/ PMHx: Crohn's disease s/p colectomy remotely, Anxiety and Depression/ADD, Asthma, Hx Alcoholism but upon ED evaluation high clinical concern for ongoing abuse, Chronic anemia/Fe deficiency anemia, Chronic Neuropathy (chart reported), Orthostatic hypotension, Former tobacco use who presents to the [facility] ED on 09/16/23 with history of ongoing hypertension for nearly 1 year with evaluation at his primary care office approximately 3 weeks prior with blood work drawn and noted elevated WBC at that time with planned follow-up lab work and repeat BP assessment outpatient however per patient and his mother they were upset in addition to a myriad of complaints of intermittent headaches, history of right foot fracture with chronic sensory changes however occasionally his left foot will be numb intermittently which again is chronic with occasional dyspnea as well and patient himself reports weight gain recently although mother saying he is losing weight however there is potentially a psychiatric component to that as well as intermittent altered speech and hand shaking prompting eventual ED evaluation. #1. Concern for Acute EtOH Withdrawal w/ EtOH abuse chart reported prior: Will admit to [facility], routine labs obtained in the ED. Will initiate and continue on protocol with taper course of Phenobarbital, as needed gabapentin, Catapres, Bentyl, Vistaril, IV fluids, IV antiemetics, Tylenol as needed for pain. Will consult Case management for assistance for transition to next level of rehabilitation care. Mag, phos pending. Maintain on [facility] protocol concurrently. #2. Leukocytosis, unclear etiology, Previously noted remotely: Admission CBC with WBC 17.1 with left shift however from 2019 he did normalized at 7.6 07/03/2020 and most recently prior to current presentation 09/16/2022 WBC 5.9 thus it has seemed to fluctuate and could certainly be related to a myriad of c omponents including mild dehydration given his renal function is elevated and his specific gravity is also elevated, procalcitonin requested, repeat CBC in AM. #3. Mild acute renal insufficiency on possible CKD component, unclear stage/unclear subtype: Admission BUN/creatinine 14/1.35, has also previously vacillated ranging 60-120 in a matter of weeks, current GFR 61, baseline creatinine primarily 0.7-1.1 from review of prior but has fluctuated, will hydrate and repeat CMP in AM. Patient would benefit from repeat labs to ascertain his exact baseline level. #4. Mild hyperbilirubinemia, elevated LFT, suspect related with acute presentation #1, #3: Admission CMP with T. bili 1.50, D bili 0.52, AST/LT 53/44, alk phos 163, previous bilirubins were normal, prior AST had been elevated but normalized and most recently 09/16/2022 AST 20, now 53, alk phos 163, previously 09/16/2022 101, has been occasionally elevated in the past, possibly related with acute presentation with some dehydration component, will continue as noted above and repeat CMP in AM. If remains elevated low threshold to obtain ultrasound to assess the right upper quadrant anatomy. #5. Elevated BP without prior reported HTN diagnosis: Will continue recently initiated norvasc, as needed IV hydralazine in interim, given #1 may not require marked amount of medication and this may need to be adjusted pending his respo nse to withdrawal treatment as noted. #6. Chronic anemia/iron deficiency anemia: Admission hemoglobin 14.3, MCV 95.4, baseline hemoglobin in 2019 had been in the 9 range, 06/14/2022 hemoglobin 12.6 a nd most recently 09/16/2022 hemoglobin 14.7, will continue to trend CBC, continue Fe supplementation. #7. Crohn's disease: Status post total colectomy, ostomy in place, monitor output, encourage continued outpatient follow-up with Dr. Sampson as previously arranged. #8. Former tobacco use: Encourage continued tobacco use. #9. DVT prophylaxis: Low risk for type of admission, encourage ambulation.
--- NOTE | 2023-09-17 07:55 | PCM.PN.HOSP ---
Reason for Visit Reason for Visit: Diagnoses Alcohol use, unspecified with withdrawal, unspecified (09/16/23) Subjective Subjective Patient is a 42-year-old gentleman with history of Crohn's disease status post colectomy currently under control, depression with anxiety ADHD history of alcohol use in the past presented with multiple complaints including restlessness. Patient admitted to regular nursing floor as a case of suspected alcohol withdrawal Objective Data Objective Data Vital Signs: Vital Signs Temp Pulse Resp BP Pulse Ox O2 Del Method 97.9 F 82 16 176/100 H 99 Room Air 09/17/23 06:45 09/17/23 06:52 09/17/23 06:45 09/17/23 06:52 09/17/23 06:45 09/17/23 06:45 Oxygen Delivery Method Room Air Weight: 73.5 kg Body Mass Index (BMI) 20.7 Intake & Output: Intake and Output for Last 24 Hours 09/15/23 09/16/23 09/17/23 23:59 23:59 23:59 Intake Total 693.58 / 693.58 Balance 693.58 / 693.58 Lab / Micro Data 09/16/23 16:24 09/16/23 16:24 Labs: Laboratory Results - last 24 hr 09/16/23 16:24: WBC 17.1 H, RBC 4.37 L, Hgb 14.3, Hct 41.7, MCV 95.4 H, MCH 32.7 H, MCHC 34.3, RDW Std Deviation 52.1 H, RDW Coeff of Nish 14.8 H, Plt Count 380, MPV 9.3, Immature Gran % (Auto) 0.400, Neut % (Auto) 89.8 H, Lymph % (Auto) 4.9 L, [place] % (Auto) 4.4, Eos % (Auto) 0.1, Baso % (Auto) 0.4, Absolute Neuts (auto) 15.4 H, Absolute Lymphs (auto) 0.84, Nucleated RBC % 0, PT 13.4, INR 1.0, APTT 30.7, Sodium 135 L, Potassium 4.3, Chloride 101, Carbon Dioxide 26.0, Anion Gap 8, BUN 14, Creatinine 1.35 H, Estim Creat Clear Calc 74.73, Est GFR (MDRD) Af Amer 74, Est GFR (MDRD) Non-Af 61, BUN/Creatinine Ratio 10.4, Glucose 121 H, Calcium 9.9, Phosphorus 2.8, Magnesium 1.5 L, Total Bilirubin 1.50 H, Direct Bilirubin 0.52 H, AST 53 H, ALT 44, Alkaline Phosphatase 163 H, Troponin I High Sens 10, Total Protein 9.1 H, Albumin 3.8, Globulin 5.3 H, Lipase 59, Vitamin B12 459, Folate 7.00 09/16/23 17:43: Urine Color Yellow, Urine Clarity Clear, Urine pH 5.0, Ur Specific Lilly 1.020, Urine Protein 100 H, Urine Glucose (UA) Normal, Urine Ketones 5 H, Urine Occult Blood 25 H, Urine Nitrite Negative, Urine Bilirubin Negative, Urine Urobilinogen 1 H, Ur Leukocyte Esterase 25 H, Urine RBC 0-5 SEEN, Urine WBC 0-5 SEEN, Ur Squamous Epith Cells 0 SEEN, Urine Bacteria RARE, Hyaline Casts 5-10 SEEN, Urine Mucus RARE, Urine Opiates Screen NEGATIVE, Urine Methadone Screen NEGATIVE, Ur Barbiturates Screen NEGATIVE, Ur Phencyclidine Scrn NEGATIVE, Ur Amphetamines Screen NEGATIVE, MDMA (Ecstasy) Screen NEGATIVE, U Benzodiazepines Scrn NEGATIVE, Urine Cocaine Screen NEGATIVE, U Cannabinoids Screen POSITIVE H, Ur Drug Screen Comment 09/16/23 17:45: Procalcitonin 0.52 H, Ethyl Alcohol 6.0 Radiography Diagnostic Testing: Radiology Impression Brain CT 09/16/23 17:07 IMPRESSION: Normal unenhanced CT scan of the brain. Minor bilateral maxillary and ethmoid sinus disease likely chronic Electronically Signed: Chevy Liu MD at 17:44 EST Reading Location ID and State: [facility] / [place] Tel [phone], Service support , Chest X-Ray 09/16/23 17:30 IMPRESSION: No acute cardiopulmonary pathology. Electronically Signed: Chevy Liu MD at 17:46 EST , Physical Exam Narrative GENERAL: Patient appears restless HEENT: Atraumatic; normocephalic EYES; Anicteric, Normal Conjunctiva NECK; supple, normal thyroid, RESPIRATORY: Diminished to auscultation CARDIOVASCULAR: Regular S1 S2, GI: soft, normoactive bowel sounds, : No Renal angle tenderness; EXTREMITIES: No edema, no clubbing, MUSCULOSKELETAL: no muscle wasting NEURO: Awake; no lateralizing signs. SKIN: No Rash PSYCH; restless Assessment & Plan Assessment/Plan (1) Alcohol withdrawal: PLAN: Plan Patient is a 42-year-old gentleman with history of Crohn's disease status post colectomy currently under control, depression with anxiety ADHD history of alcohol use in the past presented with multiple complaints including restlessness. Patient admitted to regular nursing floor as a case of suspected alcohol withdrawal 1. Suspected alcohol withdrawal ? Patient admitted to regular nursing floor started on phenobarb taper in addition to symptom management. Patient has history of serotonin syndrome but currently not on any medications we will continue with monitoring 2. Leukocytosis ? Chronic. Patient has had various workup done as outpatient without any identifiable cause will continue monitoring 3. Chronic disease ? Status post colectomy currently under remission 4. Dehydration ? Managed with IV fluids 5. Elevated blood pressure ? With a history of essential hypertension started on amlodipine we will continue to monitor 6. DVT prophylaxis ? Low risk encourage early ambulation Time spent in the patient's overall evaluation,decision-making process, review of diagnostic data, adjustment of management, discussion with other providers, nursing nursing and ancillary staff involved in patient's care documentation, 35 Minutes
[2023-09-17 08:09] LABS: Magnesium 2.4 mg/dL (1.6-2.6)
[2023-09-17] MEDS: Magnesium Chloride 64 MG Delay Rel.Tablet 128 MG PO ×2 (09:23→22:25)
[2023-09-17] MEDS: Multivitamins,Ther W-Minerals Tablet 1 TABLET PO (09:24)
[2023-09-17] MEDS: Thiamine Hydrochloride 100 MG Tablet PO (09:24)
[2023-09-17] MEDS: Folic Acid 1 MG Tablet PO ×2 (09:24)
[2023-09-17] MEDS: amLODIPine 10 MG Tablet PO (09:25)
[2023-09-17] MEDS: Acetaminophen 325 MG Tablet 650 MG PO (09:25)
[2023-09-17] MEDS: Ferrous Sulfate 325 MG Tablet PO ×2 (09:26→17:39)
--- NOTE | 2023-09-17 14:52 | CASEMGMT ---
RIO JAFFE Assessment: Face to Face with pt for initial transition planning/care coordination assessment. RIO JAFFE introduced self and role at [facility], pt voices understanding and consents to assessment. Pt is A&O x4 and answers all questions appropriately at this time. Pt sitting up in bed in no distress. Care providers, pharmacy, and demographics verified/updated. Admitting Dx: ? ETOH withdrawl PCP:Scooter Specialists:Friend, GI; Sibilia, pulm; Masci, heme [facility] Insurance: [facility] Prescription Benefit: yes LNOK: Sonia Gomez, mother; Rhys Gomez, father Living Arrangements: Pt lives in a two story home with 12 steps to enter with a rail. Pt reports he is I in ADL's and denies concerns at home. Transportation: Pt drives self and denies concerns with transportation. DME:BP cuff, ostomy supplies through [facility] HHC/SNF: Pt has had HHC in the past- cannot recall the name; denies SNF stays. Pt states no concerns with going home at time of dc. Pt denies smoking cigarettes or use of any street or illegal drugs. Pt states he used to have a problem with alcohol in the past but does not any longer. He states that if he drinks now he maybe would have 4 drinks at a time very socially. Pt states no further concerns/needs. CM to follow. Advised pt to ask CM if any further question/concerns/needs arise, voices understanding. Pt Goal: Home Plan: Home [place] PATE CM
[2023-09-18] VITALS (9 sets, daily range): BP systolic 136–160; BP diastolic 97–115; PULSE 65–90; RESP 18–20; TEMP 36.7–37.1; O2SAT 94–100
[2023-09-18] MEDS: Phenobarbital 32.4 MG Tablet 64.7999999999999972 MG PO ×6 (02:48→21:54)
[2023-09-18] MEDS: Magnesium Chloride 64 MG Delay Rel.Tablet 128 MG PO ×2 (08:30→21:53)
[2023-09-18] MEDS: Multivitamins,Ther W-Minerals Tablet 1 TABLET PO (08:30)
[2023-09-18] MEDS: Ferrous Sulfate 325 MG Tablet PO ×2 (08:31→18:08)
[2023-09-18] MEDS: amLODIPine 10 MG Tablet PO (08:32)
[2023-09-18] MEDS: Thiamine Hydrochloride 100 MG Tablet PO (08:32)
[2023-09-18] MEDS: Gabapentin 300 MG Capsule PO (08:50)
--- NOTE | 2023-09-18 09:24 | PCM.PN.HOSP ---
Reason for Visit Reason for Visit: Diagnoses Alcohol use, unspecified with withdrawal, unspecified (09/16/23) Subjective Subjective Patient seen less restless compared to previous day. Blood pressure control however not optimal subsequent adjustment made to patient antihypertensive regimen Objective Data Objective Data Vital Signs: Vital Signs Temp Pulse Resp BP Pulse Ox O2 Del Method 98.3 F 90 18 153/115 H 100 Room Air 09/18/23 08:30 09/18/23 08:30 09/18/23 08:30 09/18/23 08:30 09/18/23 08:30 09/18/23 08:30 Oxygen Delivery Method Room Air Weight: 73.5 kg Body Mass Index (BMI) 20.7 Intake & Output: Intake and Output for Last 24 Hours 09/16/23 09/17/23 09/18/23 23:59 23:59 23:59 Intake Total 1293.58 / 1293.58 0 / 0 Balance 1293.58 / 1293.58 0 / 0 Lab / Micro Data 09/16/23 16:24 09/16/23 16:24 Physical Exam Narrative GENERAL: Patient appears restless HEENT: Atraumatic; normocephalic EYES; Anicteric, Normal Conjunctiva NECK; supple, normal thyroid, RESPIRATORY: Diminished to auscultation CARDIOVASCULAR: Regular S1 S2, GI: soft, normoactive bowel sounds, : No Renal angle tenderness; EXTREMITIES: No edema, no clubbing, MUSCULOSKELETAL: no muscle wasting NEURO: Awake; no lateralizing signs. SKIN: No Rash PSYCH; restless Assessment & Plan Assessment/Plan (1) Alcohol withdrawal: PLAN: Plan Patient is a 42-year-old gentleman with history of Crohn's disease status post colectomy currently under control, depression with anxiety ADHD history of alcohol use in the past presented with multiple complaints including restlessness. Patient admitted to regular nursing floor as a case of suspected alcohol withdrawal 1. Suspected alcohol withdrawal ? Patient admitted to regular nursing floor started on phenobarb taper in addition to symptom management. Patient has history of serotonin syndrome but currently not on any medications we will continue with monitoring 2. Leukocytosis ? Chronic. Patient has had various workup done as outpatient without any identifiable cause will continue monitoring 3. Chronic disease ? Status post colectomy currently under remission 4. Dehydration ? Managed with IV fluids 5. Elevated blood pressure ? With a history of essential hypertension started on amlodipine we will continue to monitor ? 09/18/2023 blood pressure remains elevated subsequent adjustment made to patient antihypertensive regimen 6. DVT prophylaxis ? Low risk encourage early ambulation Time spent in the patient's overall evaluation,decision-making process, review of diagnostic data, adjustment of management, discussion with other providers, nursing nursing and ancillary staff involved in patient's care documentation, 35 Minutes Charges/Coding Visit Charges Inpatient E&M: 00700 Subs Hosp L2
[2023-09-18] MEDS: Metoprolol Tartrate 25 MG Tablet PO ×2 (10:13→21:55)
[2023-09-18] MEDS: hydrOXYzine PAM 25 MG Capsule 50 MG PO (13:35)
[2023-09-18] MEDS: 0.9% Saline Lock 10 ML Syringe IV (21:54)
[2023-09-19 02:24] VITALS: BP 153/91; PULSE 84; RESP 20; TEMP 37.6; O2SAT 99
[2023-09-19] MEDS: Phenobarbital 32.4 MG Tablet 64.7999999999999972 MG PO ×2 (02:25→05:35)
[2023-09-19 05:32] VITALS: BP 150/119; PULSE 79; RESP 18; TEMP 36.9; O2SAT 98
[2023-09-19 07:40] VITALS: PULSE 100
[2023-09-19] MEDS: Thiamine Hydrochloride 100 MG Tablet PO (07:47)
[2023-09-19] MEDS: Multivitamins,Ther W-Minerals Tablet 1 TABLET PO (07:47)
[2023-09-19 07:48] VITALS: PULSE 100
[2023-09-19] MEDS: Metoprolol Tartrate 25 MG Tablet PO (07:48)
[2023-09-19] MEDS: Folic Acid 1 MG Tablet PO (07:48)
[2023-09-19] MEDS: Magnesium Chloride 64 MG Delay Rel.Tablet 128 MG PO (07:48)
[2023-09-19] MEDS: Ferrous Sulfate 325 MG Tablet PO (07:48)
[2023-09-19] MEDS: amLODIPine 10 MG Tablet PO (07:49)
--- NOTE | 2023-09-19 08:26 | PCM.DC.SUM ---
Providers Date of Admission: 09/16/23 Date of Discharge: 09/19/23 Primary Care Physician: Dr. Chris Helms MD Reason For Visit: ? ETOH WITHDRAWL Diagnosis Discharge Diagnosis (1) Alcohol withdrawal: Status: Acute Code(s): F10.939 - Alcohol use, unspecified with withdrawal, unspecified Plan Patient is a 42-year-old gentleman with history of Crohn's disease status post colectomy currently under control, depression with anxiety ADHD history of alcohol use in the past presented with multiple complaints including restlessness. Patient admitted to regular nursing floor as a case of suspected alcohol withdrawal 1. Suspected alcohol withdrawal ? Patient admitted to regular nursing floor started on phenobarb taper in addition to symptom management. Patient has history of serotonin syndrome but currently not on any medications we will continue with monitoring 2. Leukocytosis ? Chronic. Patient has had various workup done as outpatient without any identifiable cause will continue monitoring 3. Chronic disease ? Status post colectomy currently under remission 4. Dehydration ? Managed with IV fluids 5. Elevated blood pressure ? With a history of essential hypertension started on amlodipine we will continue to monitor ? 09/18/2023 blood pressure remains elevated subsequent adjustment made to patient antihypertensive regimen 6. DVT prophylaxis ? Low risk encourage early ambulation Time spent in the patient's overall evaluation,decision-making process, review of diagnostic data, adjustment of management, discussion with other providers, nursing nursing and ancillary staff involved in patient's care documentation, 35 Minutes Medications at Discharge Home Medications ferrous sulfate 325 mg (65 mg iron) tablet 325 mg PO BID SUPPLEMENT 03/27/22 amlodipine 10 mg tablet 10 mg PO DAILY #30 tabs 09/16/23 amlodipine 10 mg tablet 10 mg PO DAILY #60 tabs 09/19/23 metoprolol tartrate 50 mg tablet 50 mg PO BID #120 tabs 09/19/23 Physical Exam Narrative GENERAL: Patient appears restless HEENT: Atraumatic; normocephalic EYES; Anicteric, Normal Conjunctiva NECK; supple, normal thyroid, RESPIRATORY: Diminished to auscultation CARDIOVASCULAR: Regular S1 S2, GI: soft, normoactive bowel sounds, : No Renal angle tenderness; EXTREMITIES: No edema, no clubbing, MUSCULOSKELETAL: no muscle wasting NEURO: Awake; no lateralizing signs. SKIN: No Rash PSYCH; restless Weight / BMI Weight Weight: 73.5 kg Body Mass Index (BMI) 20.7 ABG / Lab / Microbiology Data 09/16/23 16:24 09/16/23 16:24 D/C Instructions Discharge Diet: No restrictions Discharge Activity: Return to Normal Activity Call your doctor if you observe: Fever of 101 or Higher, Shortness of breath, Fainting spells and Chest pain Meaningful Use Info Meaningful Use Diagnoses (Choose all that apply): None applicable Discharge Plan Admission Admit Date/Time: 09/16/23 20:46 Attending Provider: Davie Hartley Primary Care Provider: Chris Helms Consulting Providers: Liz Sandoval Instructions Patient Instructions: ED High Blood Pressure Hypertension, ED Proteinuria Discharge Orders/Prescriptions Prescriptions: New amlodipine 10 mg tablet 10 mg PO DAILY Qty: 30 0RF amlodipine 10 mg Tablet 10 mg PO DAILY Qty: 60 0RF metoprolol tartrate 50 mg tablet 50 mg PO BID Qty: 120 0RF Continued ferrous sulfate 325 mg (65 mg iron) tablet 325 mg PO BID Referrals / Follow Up: Chris Helms MD [Primary Care Provider] - Chris Helms MD [[facility]] - Keep Fredy appointment Disposition Disposition (needs filled in before D/C Order can be placed): Home, Self Care Charges/Coding Visit Charges Inpatient E&M: 75389 Disch Hosp >30min
[2023-09-19 09:29] VITALS: O2SAT 100
[2023-09-19 10:09] VITALS: BP 138/109; PULSE 95; RESP 20; TEMP 36.8; O2SAT 98
--- NOTE | 2023-09-19 11:16 | PHA.DC_ITS ---
Pharmacy [facility] has performed discharge medication reconciliation and counseling for this patient. The patient's discharge medication list was reviewed for discrepancies and discrepancies were resolved. The patient was counseled on the following discharge medications and changes in medications for homegoing were reviewed. The Reason for Use, instructions for use, and potential side effects were reviewed for all new medications. The patient's questions regarding all of their medications were answered. 1. Amlodipine 10 mg PO daily 2. Metoprolol tartrate 50 mg PO BID The patient was able to verbally demonstrate an understanding of their discharge medications. Medications at Discharge Home Medications ferrous sulfate 325 mg (65 mg iron) tablet 325 mg PO BID SUPPLEMENT 03/27/22 amlodipine 10 mg tablet 10 mg PO DAILY #30 tabs 09/16/23 amlodipine 10 mg tablet 10 mg PO DAILY #60 tabs 09/19/23 metoprolol tartrate 50 mg tablet 50 mg PO BID #120 tabs 09/19/23
== END 2023-09-19 11:20 | disposition home or self-care (01) | DRG 775 ==
LOC: ED 19:15 → MS3 21:20
PROVIDERS: Admitting Provider Family Medicine; Emergency Provider Emergency Medicine; PCP Internal Medicine; Visit Provider Internal Medicine
DX: F10.139 Alcohol abuse with withdrawal, unspecified (principal); D50.9 Iron deficiency anemia, unspecified; K50.90 Crohn's disease, unspecified, without complications; I10 Essential (primary) hypertension; D72.829 Elevated white blood cell count, unspecified; Z87.891 Personal history of nicotine dependence; Y90.0 Blood alcohol level of less than 20 mg/100 ml
CPT/HCPCS: 36415; 70450; 71045; 80048; 80076; 80307; 80320; 81001; 82607; 82746; 83690; 83735; 84100; 84145; 84484; 85025; 85610; 85730; 93005; 99285; J7120; A4216; G0480

== ENCOUNTER 2024-05-18 15:56 | Emergency (ER) | payer MEDICAID, SELFPAY ==
[2024-05-18 15:57] VITALS: BP 144/120; PULSE 133; RESP 18; TEMP 36.7; O2SAT 92; BMI 21.7
[2024-05-18 16:43] LABS: Absolute Lymphocyte Count 1.74 X10^3/uL (0.83-4.51); Absolute Neutrophil Count 6.9 X10^3/uL (2.0-7.7); Basophil# 0.04 X10^3/uL; Basophil% 0.4 % (0-1); Eosinophil# 0.06 X10^3/uL; Eosinophils% 0.6 % (0-5); Hematocrit 44.2 % (40-54); Hemoglobin 15.2 g/dL (13.0-16.5); Lymphocyte # 1.74 X10^3/ul (0.83-4.51); Lymphocyte % 18.8 % (19-41); Mean Corp Hgb Conc 34.4 g/dL (32-36); Mean Corpuscular Hgb 32.5 pg (27.0-32.0); Mean Corpuscular Volume 94.4 fL (80-94); Mean Platelet Vol. 8.9 fl (6.2-12.0); Monocyte# 0.55 X10^3/uL; Monocyte% 5.9 % (0-10); NRBC Flagged by Analyzer 0 % (0-5); Neutrophil # 6.86 X10^3/uL (2.7-7.7); Platelet Count 363 K/mm3 (150-450); RBC Distribution Width CV 14.6 % (11.6-14.6); RBC Distribution Width SD 51.4 fl (35.1-43.9); Red Blood Count 4.68 M/mm3 (4.6-6.2); White Blood Count 9.3 K/mm3 (4.4-11.0)
[2024-05-18 16:57] VITALS: BP 165/100; PULSE 94; RESP 18; O2SAT 96
[2024-05-18 16:57] LABS: Anion Gap 15 (5-15); BUN 7 mg/dL (7-18); BUN/Creat Ratio 5.8 RATIO (10-20); Calcium,Total 9.1 mg/dL (8.5-10.1); Chloride 100 mmol/L (98-107); EST Glomerular Filtration Rate 70 mL/min (>60); Est Glom Filt Rate - Afr Amer 85 mL/min (>60); Estimated Creatinine Clearance 86.21 ml/min; Glucose 165 mg/dL (74-106); Potassium 3.2 mmol/L (3.5-5.1); Sodium Level 136 mmol/L (136-145)
[2024-05-18 17:00] VITALS: BP 165/100; PULSE 94; RESP 18; O2SAT 96
[2024-05-18 19:25] LABS: Amphetamine Urine VISTA NEGATIVE (<1000 ng/mL); Barbiturate Urine VISTA NEGATIVE (< 200 ng/mL); Benzodiazepine Urine VISTA NEGATIVE (< 200 ng/mL); Cocaine Urine VISTA NEGATIVE (< 300 ng/mL); Ecstacy Urine VISTA NEGATIVE (< 500 ng/mL); Methadone Urine VISTA NEGATIVE (< 300 ng/mL); PCP Urine VISTA NEGATIVE (< 25 ng/mL); THC Urine VISTA POSITIVE (< 50 ng/mL); Vista UDS pH Range 7
[2024-05-18] MEDS: LORazepam 1 MG Tablet PO (21:00)
[2024-05-18] MEDS: Metoprolol Tartrate 50 MG Tablet PO (21:00)
[2024-05-18] MEDS: MELATONIN 10 MG TABLET PO (22:23)
[2024-05-18] MEDS: DiphenhydrAMINE 25 MG Capsule 50 MG PO (22:23)
[2024-05-19 01:50] VITALS: BP 141/91; PULSE 79; RESP 16; TEMP 37.1; O2SAT 96
[2024-05-19 09:00] VITALS: BP 158/111; PULSE 76; RESP 16; O2SAT 9
[2024-05-19] MEDS: Metoprolol Tartrate 50 MG Tablet PO ×2 (10:41→21:43)
[2024-05-19] MEDS: LORazepam 0.5 MG Tablet PO ×2 (11:01→21:43)
[2024-05-19 12:19] VITALS: BP 136/89; PULSE 70
[2024-05-19] MEDS: Ferrous Sulfate 325 MG Tablet PO ×2 (12:47→17:41)
[2024-05-19] MEDS: Famotidine 20 MG Tablet PO (17:41)
[2024-05-19 20:00] VITALS: BP 139/101; PULSE 81; RESP 18; O2SAT 97
[2024-05-19 20:47] VITALS: BP 139/101; PULSE 81; RESP 18; TEMP 36.8; O2SAT 98
== END 2024-05-20 00:53 ==
LOC: ED 16:44
PROVIDERS: Emergency Provider Emergency Medicine; PCP Internal Medicine; Visit Provider Emergency Medicine
DX: R45.851 Suicidal ideations (principal); K50.90 Crohn's disease, unspecified, without complications; F10.120 Alcohol abuse with intoxication, uncomplicated; D50.9 Iron deficiency anemia, unspecified; F98.8 Other specified behavioral and emotional disorders with onset usually occurring in childhood and adolescence; R11.0 Nausea; I10 Essential (primary) hypertension; Z87.19 Personal history of other diseases of the digestive system; Z90.49 Acquired absence of other specified parts of digestive tract; Z79.899 Other long term (current) drug therapy; Z87.891 Personal history of nicotine dependence
CPT/HCPCS: 80048; 80307; 82077; 85025; 87635; 93005; 99285

== ENCOUNTER 2024-07-02 23:07 | Inpatient (IN) | payer MEDICAID, SELFPAY ==
[2024-07-02 23:09] VITALS: BP 139/103; PULSE 130; RESP 18; TEMP 36.6; O2SAT 98; BMI 24.0
[2024-07-03] VITALS (41 sets, daily range): BP systolic 119–156; BP diastolic 76–103; PULSE 95–128; RESP 16–28; TEMP 36.8–37.8; O2SAT 92–98; BMI 22.8
[2024-07-03 00:16] LABS: Anion Gap 28 (5-15); BUN 23 mg/dL (7-18); BUN/Creat Ratio 11.1 RATIO (10-20); Calcium,Total 8.8 mg/dL (8.5-10.1); Chloride 100 mmol/L (98-107); Creatinine, Serum 2.07 mg/dL (0.70-1.30); EST Glomerular Filtration Rate 37 mL/min (>60); Est Glom Filt Rate - Afr Amer 45 mL/min (>60); Glucose 109 mg/dL (74-106); Sodium Level 139 mmol/L (136-145)
[2024-07-03 00:19] LABS: Absolute Lymphocyte Count 0.62 X10^3/uL (0.83-4.51); Basophil# 0.05 X10^3/uL; Basophil% 0.2 % (0-1); Hemoglobin 13.5 g/dL (13.0-16.5); Lymphocyte # 0.62 X10^3/ul (0.83-4.51); Mean Corp Hgb Conc 33.8 g/dL (32-36); Mean Corpuscular Hgb 32.5 pg (27.0-32.0); Mean Corpuscular Volume 96.2 fL (80-94); Mean Platelet Vol. 8.5 fl (6.2-12.0); Monocyte# 1.65 X10^3/uL; Monocyte% 5.3 % (0-10); NRBC Flagged by Analyzer 0 % (0-5); POSITIVE COUNT YES; POSITIVE DIFFERENTIAL YES; Platelet Count 262 K/mm3 (150-450); RBC Distribution Width CV 14.7 % (11.6-14.6); RBC Distribution Width SD 52.5 fl (35.1-43.9); Red Blood Count 4.16 M/mm3 (4.6-6.2)
[2024-07-03 00:20] LABS: Amphetamine Urine VISTA NEGATIVE (<1000 ng/mL); Barbiturate Urine VISTA NEGATIVE (< 200 ng/mL); Benzodiazepine Urine VISTA NEGATIVE (< 200 ng/mL); Cocaine Urine VISTA NEGATIVE (< 300 ng/mL); Ecstacy Urine VISTA NEGATIVE (< 500 ng/mL); Methadone Urine VISTA NEGATIVE (< 300 ng/mL); PCP Urine VISTA NEGATIVE (< 25 ng/mL); THC Urine VISTA POSITIVE (< 50 ng/mL); Vista UDS pH Range 5
[2024-07-03 00:29] LABS: Differential Indicated SCAN CRITERIA MET; White Blood Count 31.1 K/mm3 (4.4-11.0)
--- NOTE | 2024-07-03 00:48 | EDS_ITS ---
HPI HPI - Psych History of Present Illness Chief Complaint: Suicidal Informant: patient and parent Narrative Narrative: Presents brought in by his mother for increasing suicidal ideation with self injury. History of depression not taking his medications. He was hospitalized approximately 6 weeks ago he was last seen here for suicidal thoughts with a plan. Today however he had a serrated blade cut his wrists and his neck. This is first time he hurt himself. Last tetanus was a year ago. Denies homicidal ideations. Started drink alcohol again last week and a half. He states he is stopped drinking when he was discharged. Denies recreational drug use. Has been having a productive cough for the past 10 days. No fevers or chills. No urinary symptoms. History of Crohn's disease with an ostomy. He does not take any immunosuppressants. Denies any history of alcohol withdrawal seizures. Prior similar symptoms: Yes Recent Illness/Hospitalization: Yes [facility] Medical History Non-nicotine vapor product user Former tobacco use Anxiety and depression Orthostatic hypotension Neuropathy History of alcoholism ADD (attention deficit disorder) Abscess of anal and rectal regions Iron deficiency anemia Crohn's disease Asthma Home Medications ?Medication ?Instructions ?Recorded ?Last Taken ?Type ferrous sulfate 325 mg (65 mg 325 mg PO TID SUPPLEMENT 03/27/22 05/18/24 08:00 History iron) tablet metoprolol tartrate 50 mg tablet 50 mg PO BID #120 tabs 09/19/23 05/18/24 08:00 Rx albuterol sulfate 90 mcg/actuation 2 puff inhalation Q8H PRN wheezing 07/02/24 Unknown History aerosol inhaler citalopram 40 mg tablet 40 mg PO DAILY 07/02/24 Unknown History gabapentin 300 mg capsule 300 mg PO TID 07/02/24 Unknown History methylphenidate HCl 27 mg 27 mg PO DAILY 07/02/24 Unknown History tablet,extended release 24 hr Allergy/AdvReac Type Severity Reaction Status Date / Time No Known Allergies Allergy Verified 07/02/24 23:15 Family History Father Hyperlipidemia Hypertension Mother No problems noted. Surgical History Status post colectomy Ileostomy status Social History household members: none Smoking Status: Former smoker Electronic Cigarette Use: without nicotine alcohol intake: current details: Former heavy ~ 30 beers/day, now only occasionally, but poor informant. substance use type: does not use ROS ROS ED Constitutional Constitutional ED: Denies chills, fever(s) or sweats ENT ENT ED: Denies sore throat Cardiovascular Cardiovascular: Denies chest pain, leg edema, palpitations or racing heartbeat Respiratory/Chest Respiratory/Chest: Reports cough; Denies dyspnea or dyspnea on exertion Gastrointestinal Gastrointestinal: Denies abdominal pain, diarrhea, nausea or vomiting Genitourinary Genitourinary ED: Denies dysuria, hematuria or urinary frequency Musculoskeletal Musculoskeletal: Denies back pain, extremity pain or neck pain Integumentary Reports wounds; Denies rash Neurologic Neurologic: Denies headache(s), paresthesias or weakness Psychiatric Psychiatric: Reports suicidal ideation and suicidal thoughts EXAM Physical Exam Const Vital Signs: 07/02/24 23:09 07/03/24 00:07 07/03/24 00:21 Temperature 97.9 F Temperature Source Oral Pulse Rate 130 H 110 H Respiratory Rate 18 22 H Blood Pressure 139/103 H 135/87 H 135/87 H Blood Pressure Mean 115 103 102 Pulse Ox 98 93 Oxygen Delivery Method Room Air Room Air 07/03/24 00:30 07/03/24 00:45 07/03/24 01:00 Temperature Temperature Source Pulse Rate 113 H 128 H 115 H Respiratory Rate 21 H 23 H 24 H Blood Pressure 119/76 Blood Pressure Mean 88 Pulse Ox 93 92 93 Oxygen Delivery Method 07/03/24 01:15 07/03/24 01:19 07/03/24 01:21 Temperature 100 F H Temperature Source Axillary Pulse Rate 114 H 125 H 114 H Respiratory Rate 20 H 17 22 H Blood Pressure 144/96 H 144/96 H Blood Pressure Mean 109 112 Pulse Ox 92 93 Oxygen Delivery Method Room Air 07/03/24 01:30 07/03/24 01:45 07/03/24 02:00 Temperature Temperature Source Pulse Rate 110 H 116 H 116 H Respiratory Rate 21 H 19 H 20 H Blood Pressure 136/93 H 135/79 H Blood Pressure Mean 105 95 Pulse Ox 94 95 97 Oxygen Delivery Method 07/03/24 02:15 07/03/24 02:19 07/03/24 02:26 Temperature 99.5 F H 99.5 F H Temperature Source Oral Pulse Rate 122 H 110 H 113 H Respiratory Rate 28 H 17 20 H Blood Pressure 135/79 H 135/79 H Blood Pressure Mean 97 97 Pulse Ox 96 95 94 Oxygen Delivery Method Room Air 07/03/24 02:26 07/03/24 02:30 Temperature Temperature Source Pulse Rate 115 H Respiratory Rate 20 H Blood Pressure 145/87 H 148/87 H Blood Pressure Mean 104 104 Pulse Ox 94 Oxygen Delivery Method Positive well nourished and well developed Constitutional Narrative: Cooperative able to answer questions. Nontoxic. General Appearance ED: well developed and NAD HEENT Reports moist mucous membranes normocephalic and atraumatic Eyes General Eye ED: Yes normal appearance of both eyes Neck Neck Narrative: Superficial abrasions left anterior neck. No deep lacerations. Chest Wall Chest: Negative for tenderness Resp normal respiratory effort and normal air movement Effort and Inspection: symmetric chest movement; Negative for respiratory distress Cardio regular rhythm and no murmurs Rate: tachycardic Peripheral Pulses: pulses 2+ throughout GI normal to inspection, nondistended, normoactive bowel sounds and non-tender GI Narrative: Abdominal ostomy Palpation: Negative for guarding or rebound tenderness present Extremity Extremity Narrative: Superficial abrasions bilateral anterior wrist, dried blood. No deep lacerations. General Extremety ED: Negative for edema or tenderness General Extremity: Negative for edema Neuro oriented x3 and no sensory deficits noted Sensorium / Orientation: awake and alert Psych Psych Narrative: Suicidal ideations with self-harm. Denies hallucinations. Skin Skin Narrative: See above Sepsis Attestation Sepsis Alert: Yes Sepsis Attestation: Agree w/Sepsis Date exam was performed: 07/03/24 Time exam was performed: 02:00 Possible Source of Sepsis: Pulmonary Sepsis Organ Dysfunction Criteria Present: Creatinine > 2.0 mg/dL and Lactic Acid > 2 mmol/L MDM MDM MDM Narrative Medical decision making narrative: Interventions / MDM: Differential diagnosis: Sepsis, community acquired pneumonia, alcohol dependence, suicidal intent Diagnosis considered but do not suspect: N/A My EKG interpretation: N/A Imaging independently reviewed and interpreted by myself: 1 view chest x-ray: Right lower lobe infiltrate. No consolidation. Also read by radiology. External documents reviewed: 2020 had 35,000 white count with findings of a cavitary lesion left side by CT. per patient no surgical intervention. Test considered but not ordered:N/A ED course: Patient admitting to suicidal ideation with self harming. Clinically cooperative not intoxicated. Medical clearance labs and workup initiated. Patient white count returned at 31,000. Creatinine 2.07. Last creatinine was 1.2. Had productive cough for 10 days. Reevaluation had transient pulse ox 88% with good waveforms that improved. Chest x-ray ordered. Will add sepsis labs as he was tachycardic on arrival. Denies any history of IV drug use. 0215: Lactic acid returned at 8.8. Blood pressure stable. Initial 1 L of IV fluids ordered. Order for additional 1.5 L of fluid for total 30 cc/kg for coverage of septic shock with a lactic acidosis. Heart rate still 110s. Pulse ox 96% room air. Covered with Rocephin and Zithromax antibiotics. Patient with sepsis and pneumonia, will discuss with hospitalist for admission for medical treatment and clearance prior to requiring psychiatric evaluation. I spoke with hospitalist Dr. Shafer for admission to ICU. Re-evaluation: stable Disposition discussed with patient/family/significant other: Patient Case discussed with consulting clinician: Hospitalist This note was generated with Gyst dictation software. It may contain incorrect words, spelling, and punctuation that were not noted in checking the note before signing. Lab Data Attestation: I reviewed the patient's lab results. Labs: Laboratory Results - last 24 hr 07/02/24 07/03/24 07/03/24 23:45 01:05 01:38 WBC 31.1 H* RBC 4.16 L Hgb 13.5 Hct 40.0 MCV 96.2 H MCH 32.5 H MCHC 33.8 RDW Std Deviation 52.5 H RDW Coeff of Nish 14.7 H Plt Count 262 MPV 8.5 Immature Gran % (Auto) 2.500 H Neut % (Auto) 90.0 H Lymph % (Auto) 2.0 L [place] % (Auto) 5.3 Eos % (Auto) 0.0 Baso % (Auto) 0.2 Absolute Neuts (auto) 28.0 H Absolute Lymphs (auto) 0.62 L Nucleated RBC % 0 Differential Comment SCANNED Diff Path Review May foll PT 12.6 INR 0.9 APTT 26.7 Sodium 139 Potassium 4.0 Chloride 100 Carbon Dioxide 11.0 L Anion Gap 28 H BUN 23 H Creatinine 2.07 H Estim Creat Clear Calc 53.50 Est GFR (MDRD) Af Amer 45 L Est GFR (MDRD) Non-Af 37 L BUN/Creatinine Ratio 11.1 Glucose 109 H Lactic Acid 8.8 H* Calcium 8.8 Total Bilirubin 0.60 Direct Bilirubin 0.28 AST 97 H ALT 31 Alkaline Phosphatase 130 H Total Protein 8.3 H Albumin 3.4 Globulin 4.9 H Urine Color Yellow Urine Clarity Clear Urine pH 6.0 Ur Specific [place] 1.020 Urine Protein 30 H Urine Glucose (UA) Normal Urine Ketones 5 H Urine Occult Blood 50 H Urine Nitrite Negative Urine Bilirubin Negative Urine Urobilinogen Normal Ur Leukocyte Esterase Negative Urine RBC 0 SEEN Urine WBC 0 SEEN Ur Squamous Epith Cells 0-5 SEEN Urine Bacteria 1+ Urine Mucus 0 SEEN Urine Opiates Screen NEGATIVE Urine Methadone Screen NEGATIVE Ur Barbiturates Screen NEGATIVE Ur Phencyclidine Scrn NEGATIVE Ur Amphetamines Screen NEGATIVE MDMA (Ecstasy) Screen NEGATIVE U Benzodiazepines Scrn NEGATIVE Urine Cocaine Screen NEGATIVE U Cannabinoids Screen POSITIVE H Ur Drug Screen Comment Ethyl Alcohol 359.0 H* Radiography Diagnostic Testing: Clinical Impression(s) from Imaging Studies Chest X-Ray 07/03/24 01:10 IMPRESSION: Right basilar airspace disease consistent with pneumonia. Electronically Signed: Mary Ellen Esparza MD at 1:39 EST Reading Location ID and State: [id number] Tel , Service support , Critical Care Time Critical Care Time: Yes Critical care time (excluding procedures): 30-74 minutes, Discussing w/Patient &/or Family/Calendar Control Clerk Blood Bank, Discussing w/Consultants, Arranging Admission or Transfer, Performing Direct Patient Care at Bedside and - (35 minutes) Discharge Plan Dx/Rx/DC Orders Clinical Impression: Pneumonia, TAMIKO (acute kidney injury), Sepsis, Alcohol abuse, Suicidal intent, Abrasions of multiple sites, Intentional self-harm Disposition Disposition: Acute Care [facility] Discharge Date/Time: 07/03/24 03:18
[2024-07-03 01:06] LABS: AST(SGOT) 97 U/L (15-37); Alanine Aminotransfer ALT/SGPT 31 U/L (16-61); Albumin, Serum 3.4 g/dL (3.2-5.0); Alkaline Phosphatase 130 U/L (45-117); Bilirubin, Direct 0.28 mg/dL (0.00-0.30); Globulin 4.9 g/dL (2.2-4.2); Protein, Total 8.3 g/dL (6.4-8.2)
--- NOTE | 2024-07-03 01:10 | RAD_ITS ---
INDICATION: leukocytosis EXAMINATION/TECHNIQUE: X-RAY - XR Chest 1 View AP portable. 1:08 AM COMPARISON: Prior study dated: 09/16/2023 FINDINGS: LINES/DEVICES: None. LUNGS: Patchy alveolar infiltrate at the right lung base. No consolidation. No pneumothorax. MEDIASTINUM: Unremarkable. CARDIAC SILHOUETTE: Not enlarged. BONES AND SOFT TISSUES: No acute abnormalities. RAD/Chest 1 View (Portable) IMPRESSION: Right basilar airspace disease consistent with pneumonia. Electronically Signed: Mary Ellen Esparza MD at 1:39 EST ,
[2024-07-03 01:25] LABS: Mucous, Urine 0 SEEN /hpf (<or=2+); Red Blood Cells-Urine 0 SEEN /hpf (0-5); White Blood Cells 0 SEEN /hpf (0-5)
[2024-07-03 01:26] LABS: Differential Comment SCANNED
[2024-07-03 01:28] LABS: Color, Urine Yellow (Yellow); Glucose, Dipstick Normal (Normal); Ketone-Dipstick 5 mg/dl (Negative); Leukocyte Esterase-Dipstick Negative /ul (Negative); Nitrite-Dipstick Negative (Negative); Occult Blood-Urine 50 /ul (Negative); Protein-Dipstick 30 mg/dl (Negative); Urine Bilirubin Dipstick Negative (Negative); Urine Clarity Clear (Clear); Urine Urobilinogen Normal (Normal)
[2024-07-03 01:28] LABS: International Normalized Ratio 0.9; Prothrombin Time (Protime)PT. 12.6 SECONDS (11.7-14.9)
[2024-07-03] MEDS: 0.9% Normal Saline (1000mL) 1,000 ML 999 ML IV (01:28)
[2024-07-03 01:29] LABS: Partial Thromboplast Time 26.7 Seconds (24.1-36.2)
[2024-07-03 01:40] LABS: Bacteria 1+ /hpf (None Seen); Squamous Epithelial Cells - UA 0-5 SEEN /hpf (0-5)
[2024-07-03 02:13] LABS: Lactic Acid 8.8 mmol/L (0.4-1.9)
--- NOTE | 2024-07-03 02:27 | HP.PCM.HOS_ITS ---
HPI - General General Date of Admission: 07/03/24 HPI Narrative JOSHUA MCLAUGHLIN, is a 43 M who presents to the hospital after suicide attempt. He attempted to cut both of his wrists and his throat all 3 wounds were superficial and not requiring any repair however in the process of evaluating him for placement with crisis he was found to have a leukocytosis to 31,000 with a lactic acid of 8 and a blood alcohol in the 300s. Chest x-ray demonstrated a right basilar infiltrate so he was felt to be septic from pneumonia and was started on Rocephin and azithromycin. He states that he has chronic depression that he does not get any help with and that the only thing that seem to have helped was gabapentin. He also has periods of being awake for several weeks at a time getting only 2 to 3 hours of sleep at night. He will need to be placed for mental health given his suicide attempt but he will need to be medically cleared prior to being able to go to inpatient psych. [facility] Medical History Non-nicotine vapor product user Former tobacco use Anxiety and depression Orthostatic hypotension Neuropathy History of alcoholism ADD (attention deficit disorder) Abscess of anal and rectal regions Iron deficiency anemia Crohn's disease Asthma Home Medications ?Medication ?Instructions ?Recorded ?Last Taken ?Type ferrous sulfate 325 mg (65 mg 325 mg PO TID SUPPLEMENT 03/27/22 05/18/24 08:00 History iron) tablet metoprolol tartrate 50 mg tablet 50 mg PO BID #120 tabs 09/19/23 05/18/24 08:00 Rx albuterol sulfate 90 mcg/actuation 2 puff inhalation Q8H PRN wheezing 07/02/24 Unknown History aerosol inhaler citalopram 40 mg tablet 40 mg PO DAILY 07/02/24 Unknown History gabapentin 300 mg capsule 300 mg PO TID 07/02/24 Unknown History methylphenidate HCl 27 mg 27 mg PO DAILY 07/02/24 Unknown History tablet,extended release 24 hr Allergy/AdvReac Type Severity Reaction Status Date / Time No Known Allergies Allergy Verified 07/02/24 23:15 Family History Father Hyperlipidemia Hypertension Mother No problems noted. Surgical History Status post colectomy Ileostomy status Social History household members: none Smoking Status: Current some day smoker tobacco type: e-cigarettes Electronic Cigarette Use: without nicotine alcohol intake: current details: Former heavy ~ 30 beers/day, now only occasionally, but poor informant. substance use type: does not use ROS Constitutional Constitutional: Denies chills, fatigue, fever(s) or malaise Eyes Eyes: Denies blurry vision ENT HEENT: Denies headache(s) or nasal discharge Cardiovascular Cardiovascular: Denies chest pain, dyspnea on exertion or syncope Respiratory/Chest Respiratory/Chest: Reports cough; Denies shortness of breath at rest or shortness of breath with exertion Gastrointestinal Gastrointestinal: Denies constipation, diarrhea, nausea or vomiting Genitourinary Genitourinary: Denies dysuria Neurologic Neurologic: Denies focal weakness, numbness or tremor(s) Psychiatric Psychiatric: Reports anxiety, depression and suicidal ideation Vital Signs Vital Signs Vital Signs: 07/02/24 23:09 07/03/24 00:07 07/03/24 00:21 Temperature 97.9 F Temperature Source Oral Pulse Rate 130 H 110 H Respiratory Rate 18 22 H Blood Pressure 139/103 H 135/87 H 135/87 H Blood Pressure Mean 115 103 102 Pulse Ox 98 93 Oxygen Delivery Method Room Air Room Air 07/03/24 00:30 07/03/24 00:45 07/03/24 01:00 Temperature Temperature Source Pulse Rate 113 H 128 H 115 H Respiratory Rate 21 H 23 H 24 H Blood Pressure 119/76 Blood Pressure Mean 88 Pulse Ox 93 92 93 Oxygen Delivery Method 07/03/24 01:15 07/03/24 01:19 07/03/24 01:21 Temperature 100 F H Temperature Source Axillary Pulse Rate 114 H 125 H 114 H Respiratory Rate 20 H 17 22 H Blood Pressure 144/96 H 144/96 H Blood Pressure Mean 109 112 Pulse Ox 92 93 Oxygen Delivery Method Room Air 07/03/24 01:30 07/03/24 01:45 07/03/24 02:00 Temperature Temperature Source Pulse Rate 110 H 116 H 116 H Respiratory Rate 21 H 19 H 20 H Blood Pressure 136/93 H 135/79 H Blood Pressure Mean 105 95 Pulse Ox 94 95 97 Oxygen Delivery Method 07/03/24 02:15 07/03/24 02:19 07/03/24 02:26 Temperature 99.5 F H 99.5 F H Temperature Source Oral Pulse Rate 122 H 110 H 113 H Respiratory Rate 28 H 17 20 H Blood Pressure 135/79 H 135/79 H Blood Pressure Mean 97 97 Pulse Ox 96 95 94 Oxygen Delivery Method Room Air Weight Weight: 187 lb 2.759 oz Body Mass Index (BMI) 24.0 Physical Exam Narrative General: Alert, Oriented x3, Cooperative, No apparent distress HEENT: Atraumatic, PERRLA, EOMI, Normocephalic Oral: Moist Mucosa Neck: Supple, No JVD Lungs: Diminished, Normal air movement, No rhonchi, No wheeze, No rales Cardiovascular: Tachycardic, Regular Rhythm, Normal S1, Normal S2, No murmurs Abdomen: Soft, Non Tender, Non-Distended, No Hepato-splenomegaly, ostomy Extremities: No edema, Capillary Refill Less than 3 Seconds Skin: Bilateral wrist laceration with an anterior throat laceration currently dressed not bleeding Musculoskeletal: No Tenderness to Palpation of Joints or Extremities Neurological: No focal neurological deficits, Motor Exam 5/5 strength throughout, Sensory exam intact to light touch and pain Psych/Mental Status: Normal Affect, Appropriate Results Lab / Micro Data 07/03/24 03:54 07/03/24 03:54 Labs: Laboratory Results - last 24 hr 07/02/24 23:45: WBC 31.1 H*, RBC 4.16 L, Hgb 13.5, Hct 40.0, MCV 96.2 H, MCH 32.5 H, MCHC 33.8, RDW Std Deviation 52.5 H, RDW Coeff of Insh 14.7 H, Plt Count 262, MPV 8.5, Immature Gran % (Auto) 2.500 H, Neut % (Auto) 90.0 H, Lymph % (Auto) 2.0 L, [place] % (Auto) 5.3, Eos % (Auto) 0.0, Baso % (Auto) 0.2, Absolute Neuts (auto) 28.0 H, Absolute Lymphs (auto) 0.62 L, Nucleated RBC % 0, Differential Comment SCANNED, Diff Path Review November, Sodium 139, Potassium 4.0, Chloride 100, Carbon Dioxide 11.0 L, Anion Gap 28 H, BUN 23 H, Creatinine 2.07 H, Estim Creat Clear Calc 53.50, Est GFR (MDRD) Af Amer 45 L, Est GFR (MDRD) Non-Af 37 L, BUN/Creatinine Ratio 11.1, Glucose 109 H, Calcium 8.8, Total Bilirubin 0.60, Direct Bilirubin 0.28, AST 97 H, ALT 31, Alkaline Phosphatase 130 H, Total Protein 8.3 H, Albumin 3.4, Globulin 4.9 H, Urine Color Yellow, Urine Clarity Clear, Urine pH 6.0, Ur Specific [place] 1.020, Urine Protein 30 H , Urine Glucose (UA) Normal, Urine Ketones 5 H, Urine Occult Blood 50 H, Urine Nitrite Negative, Urine Bilirubin Negative, Urine Urobilinogen Normal, Ur Leukocyte Esterase Negative, Urine RBC 0 SEEN, Urine WBC 0 SEEN, Ur Squamous Epith Cells 0-5 SEEN, Urine Bacteria 1+, Urine Mucus 0 SEEN, Urine Opiates Screen NEGATIVE, Urine Methadone Screen NEGATIVE, Ur Barbiturates Screen NEGATIVE, Ur Phencyclidine Scrn NEGATIVE, Ur Amphetamines Screen NEGATIVE, MDMA (Ecstasy) Screen NEGATIVE, U Benzodiazepines Scrn NEGATIVE, Urine Cocaine Screen NEGATIVE, U Cannabinoids Screen POSITIVE H, Ur Drug Screen Comment , Ethyl Alcohol 359.0 H* 07/03/24 01:05: PT 12.6, INR 0.9, APTT 26.7 07/03/24 01:38: Lactic Acid 8.8 H* Imaging Radiology Impression Chest X-Ray 07/03/24 01:10 IMPRESSION: Right basilar airspace disease consistent with pneumonia. Electronically Signed: Mary Ellen Esparza MD at 1:39 EST , Assessment & Plan Assessment/Plan (1) Suicidal intent: (2) Alcohol abuse: (3) Sepsis: (4) Pneumonia: (5) TAMIKO (acute kidney injury): PLAN: Plan 1. Sepsis secondary to pneumonia with an anion gap metabolic acidosis/TAMIKO ? Admit to the ICU ? Will continue with fluid boluses, he is receiving 30 cc/kg bolus blood pressure stable ? Continue with IV fluids once boluses are completed ? Continue with Rocephin and azithromycin ? Cultures are pending ? Baseline creatinine is around 1 currently at 2.07 ? He meets sepsis criteria secondary to his elevated creatinine above 2 as well as a lactic acid of 8.8 and a bicarb of 11 ? Urine drug screen positive for alcohol and marijuana 2. Severe depression with suicide attempt and alcohol abuse ? Will continue with CIWA protocol as well as Ativan as needed ? Will be evaluated by crisis and will need placement in a mental health institution upon discharge ? He has had suicidal ideation in the past, this is his first attempt ? Will continue with his gabapentin as well as his citalopram as he says that the gabapentin has helped ? He says he has not been sleeping he has periods of no sleep, he says he has not slept for 4 days ? Will trial trazodone at night to help with sleep 3. Crohn's disease with iron deficiency anemia ? Continue with his iron supplement ? He does have an ostomy 4. Essential HTN ? Will hold his metoprolol secondary to his sepsis ? Will monitor make adjustments as necessary DVT: Lovenox 75 minutes was spent on direct patient care, including documentation as well as chart review and collaboration with colleagues Sepsis Attestation Sepsis Attestation: Agree w/Sepsis Date exam was performed: 07/03/24 Time exam was performed: 02:20 Possible Source of Sepsis: Pulmonary Sepsis Organ Dysfunction Criteria Present: Creatinine > 2.0 mg/dL and Serum CO2 < 20 mmol/L (on BMP) Fluid Resuscitation Fluid resuscitation indicated?: Yes Fluid Resuscitation ordered: 30 ml/kg fluid bolus ordered Amount of fluid ordered: 2,500 Sepsis Note Date exam was performed: 07/03/24 Time exam was performed: 04:00 Sepsis Attestation: Sepsis re-evaluation was performed Response to fluids: Fluid responsive hypotension Charges/Coding Visit Charges Inpatient E&M: 65698 Init Hosp L3
[2024-07-03] MEDS: Famotidine 200 MG/20 ML MDV 20 MG in 0.9% Normal Saline (Pres. free 8 ML 300 MG IV (02:34)
[2024-07-03] MEDS: 0.9% Normal Saline (1000mL) 1,500 ML 999 ML IV (02:37)
[2024-07-03] MEDS: Ceftriaxone 2 GM in 0.9% Normal Saline (50mL MB+) 50 ML IV (02:49)
[2024-07-03] MEDS: Azithromycin 500 MG in 0.9% Normal Saline (250mL Bag) 250 ML 250 MG IV (03:27)
[2024-07-03 04:03] LABS: Absolute Lymphocyte Count 0.46 X10^3/uL (0.83-4.51); Absolute Neutrophil Count 22.7 X10^3/uL (2.0-7.7); Basophil# 0.04 X10^3/uL; Basophil% 0.2 % (0-1); Hematocrit 32.5 % (40-54); Hemoglobin 11.1 g/dL (13.0-16.5); Lymphocyte # 0.46 X10^3/ul (0.83-4.51); Lymphocyte % 1.8 % (19-41); Mean Corp Hgb Conc 34.2 g/dL (32-36); Mean Corpuscular Hgb 32.5 pg (27.0-32.0); Mean Platelet Vol. 8.3 fl (6.2-12.0); Monocyte# 1.12 X10^3/uL; Monocyte% 4.4 % (0-10); NRBC Flagged by Analyzer 0 % (0-5); Neutrophil # 22.71 X10^3/uL (2.7-7.7); Neutrophil % 89.6 % (47-70); POSITIVE DIFFERENTIAL YES; Platelet Count 173 K/mm3 (150-450); RBC Distribution Width CV 14.7 % (11.6-14.6); RBC Distribution Width SD 51.1 fl (35.1-43.9); Red Blood Count 3.42 M/mm3 (4.6-6.2); White Blood Count 25.3 K/mm3 (4.4-11.0)
[2024-07-03 04:09] LABS: Differential Indicated SCAN CRITERIA MET
[2024-07-03 04:18] LABS: Anion Gap 19 (5-15); BUN 23 mg/dL (7-18); BUN/Creat Ratio 15.2 RATIO (10-20); Calcium,Total 7.6 mg/dL (8.5-10.1); Chloride 104 mmol/L (98-107); Creatinine, Serum 1.51 mg/dL (0.70-1.30); EST Glomerular Filtration Rate 54 mL/min (>60); Est Glom Filt Rate - Afr Amer 65 mL/min (>60); Glucose 140 mg/dL (74-106); Potassium 4.2 mmol/L (3.5-5.1); Sodium Level 138 mmol/L (136-145)
[2024-07-03] MEDS: 0.9% Normal Saline (1000mL) 1,000 ML 125 ML IV (04:21)
[2024-07-03] MEDS: 0.9% Saline Lock 10 ML Syringe IV ×2 (04:21→09:21)
[2024-07-03] MEDS: LORazepam 2 MG/ML Syringe IV ×3 (04:21→20:42)
[2024-07-03] MEDS: Gabapentin 300 MG Capsule PO ×3 (04:21→22:57)
[2024-07-03] MEDS: Nicotine Polacrilex 2 MG GUM PO (04:55)
[2024-07-03 05:05] LABS: Differential Comment SCANNED
[2024-07-03 05:44] LABS: Reflex Lactate? Y
[2024-07-03 06:36] LABS: Lactic Acid 4.5 mmol/L (0.4-1.9)
--- NOTE | 2024-07-03 07:52 | PCM.PN.HOSP ---
Reason for Visit Reason for Visit: Suicide attempt Subjective Subjective Patient is a 43-year-old white male who presented to the emergency department at [facility] on 07/03/2024 secondary to suicide attempt where he attempted to cut both of his wrists and his throat. All 3 wounds were extremely superficial and did not require any repair on arrival. He had no subjective complaints on arrival however during evaluation for medical clearance for crisis he was found to have abnormal labs. Vital signs on presentation showed a temperature of 97.9, heart rate 130, respiratory rate 18, blood pressure was 139/103 pulse ox was 98% on room air. CBC showed a leukocytosis with a white count of 31.1 and a significant left shift with a 90.0% neutrophilia. Coags were normal. Chemistry panel showed elevated serum creatinine 2.07 (with known baseline in May of 1.2) serum bicarb was 11 with an anion gap of 28. Other electrolytes were normal. His initial lactic acid was 8.8 with a repeat of 4.5 after IV fluids. Liver functions overtly unremarkable with a mildly elevated AST at 97 but a normal ALT. Urine is consistent with dehydration having specific gravity of 1.02 but not suggestive of infection. Chest x-ray showed right basilar airspace disease consistent with pneumonia. Blood cultures were obtained and the patient was started on antibiotics to cover community-acquired pneumonia with ceftriaxone and azithromycin. He was admitted to the ICU with sepsis protocol and hydrated with 30 cc/kg ideal body weight. Lactate cleared and renal function improved. Anion gap improved and serum bicarb trended up with treatment via IV fluids and antibiotics. Today the patient states he feels like crap. He does admit to drinking quite a bit of alcohol daily however he is not able to tell us how much he drinks daily. His current CIWA is 14 so I did discuss with him that we would be starting phenobarbital. He also smokes I will go ahead and start a nicotine patch on him. Objective Data Objective Data Vital Signs: Vital Signs Temp Pulse Resp BP Pulse Ox O2 Del Method 98.5 F 115 H 20 H 139/85 H 93 Room Air 07/03/24 05:30 07/03/24 07:00 07/03/24 07:00 07/03/24 07:00 07/03/24 07:00 07/03/24 07:00 Oxygen Delivery Method Room Air Weight: 80.7 kg Body Mass Index (BMI) 22.8 Intake & Output: Intake and Output for Last 24 Hours 07/01/24 07/02/24 07/03/24 23:59 23:59 23:59 Intake Total 3215 / 3215 Balance 3215 / 3215 Lab / Micro Data 07/03/24 03:54 07/03/24 03:54 Labs: Laboratory Results - last 24 hr 07/02/24 23:45: WBC 31.1 H*, RBC 4.16 L, Hgb 13.5, Hct 40.0, MCV 96.2 H, MCH 32.5 H, MCHC 33.8, RDW Std Deviation 52.5 H, RDW Coeff of Nish 14.7 H, Plt Count 262, MPV 8.5, Immature Gran % (Auto) 2.500 H, Neut % (Auto) 90.0 H, Lymph % (Auto) 2.0 L, [place] % (Auto) 5.3, Eos % (Auto) 0.0, Baso % (Auto) 0.2, Absolute Neuts (auto) 28.0 H, Absolute Lymphs (auto) 0.62 L, Nucleated RBC % 0, Differential Comment SCANNED, Diff Path Review November, Sodium 139, Potassium 4.0, Chloride 100, Carbon Dioxide 11.0 L, Anion Gap 28 H, BUN 23 H, Creatinine 2.07 H, Estim Creat Clear Calc 53.50, Est GFR (MDRD) Af Amer 45 L, Est GFR (MDRD) Non-Af 37 L, BUN/Creatinine Ratio 11.1, Glucose 109 H, Calcium 8.8, Total Bilirubin 0.60, Direct Bilirubin 0.28, AST 97 H, ALT 31, Alkaline Phosphatase 130 H, Total Protein 8.3 H, Albumin 3.4, Globulin 4.9 H, Urine Color Yellow, Urine Clarity Clear, Urine pH 6.0, Ur Specific [place] 1.020, Urine Protein 30 H, Urine Glucose (UA) Normal, Urine Ketones 5 H, Urine Occult Blood 50 H, Urine Nitrite Negative, Urine Bilirubin Negative, Urine Urobilinogen Normal, Ur Leukocyte Esterase Negative, Urine RBC 0 SEEN, Urine WBC 0 SEEN, Ur Squamous Epith Cells 0-5 SEEN, Urine Bacteria 1+, Urine Mucus 0 SEEN, Urine Opiates Screen NEGATIVE, Urine Methadone Screen NEGATIVE, Ur Barbiturates Screen NEGATIVE, Ur Phencyclidine Scrn NEGATIVE, Ur Amphetamines Screen NEGATIVE, MDMA (Ecstasy) Screen NEGATIVE, U Benzodiazepines Scrn NEGATIVE, Urine Cocaine Screen NEGATIVE, U Cannabinoids Screen POSITIVE H, Ur Drug Screen Comment , Ethyl Alcohol 359.0 H* 07/03/24 01:05: PT 12.6, INR 0.9, APTT 26.7 07/03/24 01:38: Lactic Acid 8.8 H* 07/03/24 03:54: WBC 25.3 H, RBC 3.42 L, Hgb 11.1 L, Hct 32.5 L, MCV 95.0 H, MCH 32.5 H, MCHC 34.2, RDW Std Deviation 51.1 H, RDW Coeff of Nish 14.7 H, Plt Count 173, MPV 8.3, Immature Gran % (Auto) 4.000 H, Neut % (Auto) 89.6 H, Lymph % (Auto) 1.8 L, [place] % (Auto) 4.4, Eos % (Auto) 0.0, Baso % (Auto) 0.2, Absolute Neuts (auto) 22.7 H, Absolute Lymphs (auto) 0.46 L, Nucleated RBC % 0, Differential Comment SCANNED, Sodium 138, Potassium 4.2, Chloride 104, Carbon Dioxide 15.0 L, Anion Gap 19 H, BUN 23 H, Creatinine 1.51 H, Estim Creat Clear Calc 72.00, Est GFR (MDRD) Af Amer 65, Est GFR (MDRD) Non-Af 54 L, BUN/Creatinine Ratio 15.2, Glucose 140 H, Calcium 7.6 L 07/03/24 05:50: Lactic Acid 4.5 H* Radiography Diagnostic Testing: Radiology Impression Chest X-Ray 07/03/24 01:10 IMPRESSION: Right basilar airspace disease consistent with pneumonia. Electronically Signed: Mary Ellen Esparza MD at 1:39 EST , Assessment & Plan Assessment/Plan (1) Intentional self-harm: (2) Sepsis: (3) TAMIKO (acute kidney injury): (4) Pneumonia: (5) Alcohol abuse: PLAN: Plan Sepsis secondary to suspected right lower lobe pneumonia -Blood cultures are pending -Continue antibiotics with Rocephin and azithromycin for now -Await cultures and narrow antibiotics further -Blood pressure is stabilized but he does seem to be tachycardic still -Anticipate transfer from ICU to [facility] 3 later today Lactic acidosis -Multifactorial--> sepsis/alcohol use/dehydration -Resolving with IV fluids TAMIKO -Baseline serum creatinine appears to be between 1 and 1.3 -Serum creatinine on presentation was 2.07 -Renal function is improving with IV fluids -Avoid nephrotoxins -recheck in a.m. -CK is pending as patient had a UA that showed heme but no red blood cells so I suspect there may be a component of rhabdo -If elevated will repeat in a.m. and hydrate more aggressively Leukocytosis -Secondary to above plus hemoconcentration -Repeat in a.m. Anion gap metabolic acidosis -continue the above--> multifactorial due to lactic acidosis, alcoholic ketosis, dehydration with renal failure -Resolving Alcohol abuse with potential pending withdrawal -alcohol level on presentation was 359 -Will start phenobarbital taper as patient is now admitting drinking a lot more than he had previously -Continue CIWA with as needed Ativan -Continue thiamine and folate -Continue as needed medications for alcohol withdrawal -Consider evaluation by 180 however patient will likely need psychiatric admission at discharge due to suicidal ideation and attempt on presentation -Patient did have admission here in September for alcohol withdrawal Tobacco abuse -Patient states he vapes quite a bit -Nicotine patch available -Recommend cessation Depression -Continue home citalopram Hypertension -Continue home metoprolol History of Crohn's disease -Continue home gabapentin FEN patient is status post ostomy DVT prophylaxis -Continue subcu Lovenox CODE STATUS Full code
[2024-07-03] MEDS: Folic Acid 1 MG Tablet PO (09:17)
[2024-07-03] MEDS: Thiamine Hydrochloride 100 MG Tablet PO (09:17)
[2024-07-03] MEDS: Phenobarbital 32.4 MG Tablet PO ×5 (09:18→23:59)
[2024-07-03] MEDS: Citalopram 40 MG TABLET PO (09:19)
[2024-07-03] MEDS: Enoxaparin 40 MG/0.4 ML Syringe SC (09:19)
[2024-07-03] MEDS: Ferrous Sulfate 325 MG Tablet PO ×2 (09:19→15:51)
[2024-07-03 16:19] LABS: CPK Total, Creatine Kinase 153 U/L (39-308)
[2024-07-03] MEDS: Mupirocin Ointment 22gm Tube 1 APPLIC TOPICAL (22:52)
[2024-07-03] MEDS: Metoprolol Tartrate 50 MG Tablet PO (22:53)
[2024-07-03] MEDS: Dicyclomine 10 MG Capsule 20 MG PO (22:53)
[2024-07-03] MEDS: traZODone 100 MG Tablet PO (22:54)
[2024-07-03] MEDS: Ceftriaxone 1 GM/50 ML BAG IV (22:57)
[2024-07-03] MEDS: Azithromycin 500 MG in Dextrose 5%-Water (250mL Bag) 250 ML 250 MG IV (23:50)
[2024-07-04] MEDS: Phenobarbital 32.4 MG Tablet PO ×5 (03:34→20:14)
[2024-07-04 03:35] VITALS: BP 139/105; PULSE 76; RESP 16; TEMP 36.7; O2SAT 98
[2024-07-04 05:53] VITALS: BMI 24.2
[2024-07-04 06:06] LABS: Absolute Lymphocyte Count 1.09 X10^3/uL (0.83-4.51); Absolute Neutrophil Count 9.3 X10^3/uL (2.0-7.7); Basophil# 0.02 X10^3/uL; Basophil% 0.2 % (0-1); Eosinophil# 0.03 X10^3/uL; Eosinophils% 0.3 % (0-5); Hematocrit 29.1 % (40-54); Hemoglobin 9.7 g/dL (13.0-16.5); Lymphocyte # 1.09 X10^3/ul (0.83-4.51); Lymphocyte % 9.8 % (19-41); Mean Corp Hgb Conc 33.3 g/dL (32-36); Mean Corpuscular Hgb 31.1 pg (27.0-32.0); Mean Corpuscular Volume 93.3 fL (80-94); Mean Platelet Vol. 8.8 fl (6.2-12.0); Monocyte# 0.56 X10^3/uL; Monocyte% 5.1 % (0-10); NRBC Flagged by Analyzer 0 % (0-5); Neutrophil # 9.32 X10^3/uL (2.7-7.7); Neutrophil % 84.1 % (47-70); Platelet Count 119 K/mm3 (150-450); RBC Distribution Width CV 14.1 % (11.6-14.6); RBC Distribution Width SD 47.7 fl (35.1-43.9); Red Blood Count 3.12 M/mm3 (4.6-6.2); White Blood Count 11.1 K/mm3 (4.4-11.0)
[2024-07-04] MEDS: Gabapentin 300 MG Capsule PO ×3 (06:37→21:29)
[2024-07-04 07:21] LABS: Anion Gap 7 (5-15); BUN 16 mg/dL (7-18); BUN/Creat Ratio 16.5 RATIO (10-20); Calcium,Total 7.9 mg/dL (8.5-10.1); Chloride 104 mmol/L (98-107); Creatinine, Serum 0.97 mg/dL (0.70-1.30); EST Glomerular Filtration Rate 90 mL/min (>60); Est Glom Filt Rate - Afr Amer 108 mL/min (>60); Estimated Creatinine Clearance 114.17 ml/min; Glucose 100 mg/dL (74-106); Magnesium 1.7 mg/dL (1.6-2.6); Phosphorus 0.4 mg/dL (2.5-4.9); Potassium 3.7 mmol/L (3.5-5.1); Sodium Level 138 mmol/L (136-145)
--- NOTE | 2024-07-04 08:11 | PN.HOSP_ITS ---
Reason for Visit Reason for Visit: Suicidal ideation/attempt Subjective Subjective No complaints or issues overnight. CIWA is improving and no down to 7 from 14. Patient has tremor and some internal anxiety but denies any other symptoms at this time. Remains on room air. White count is markedly better. Patient is aware once he is medically stable crisis see him for placement. At this point he is agreeable. Objective Data Objective Data Vital Signs: Vital Signs Temp Pulse Resp BP Pulse Ox O2 Del Method 98.1 F 76 16 139/105 H 98 Room Air 07/04/24 03:35 07/04/24 03:35 07/04/24 03:35 07/04/24 03:35 07/04/24 03:35 07/04/24 03:35 Oxygen Delivery Method Room Air Weight: 85.7 kg Body Mass Index (BMI) 24.2 Intake & Output: Intake and Output for Last 24 Hours 07/02/24 07/03/24 07/04/24 23:59 23:59 23:59 Intake Total 6115 / 6115 655 / 655 Output Total 950 / 950 Balance 5165 / 5165 655 / 655 Lab / Micro Data 07/04/24 08:13 07/04/24 05:58 Labs: Laboratory Results - last 24 hr 07/03/24 15:55: Total Creatine Kinase 153 07/04/24 05:58: WBC 11.1 H, RBC 3.12 L, Hgb 9.7 L, Hct 29.1 L, MCV 93.3, MCH 31.1, MCHC 33.3, RDW Std Deviation 47.7 H, RDW Coeff of Nish 14.1, Plt Count 119 L, MPV 8.8, Immature Gran % (Auto) 0.500, Neut % (Auto) 84.1 H, Lymph % (Auto) 9.8 L, [place] % (Auto) 5.1, Eos % (Auto) 0.3, Baso % (Auto) 0.2, Absolute Neuts (auto) 9.3 H, Absolute Lymphs (auto) 1.09, Nucleated RBC % 0, Sodium 138, Potassium 3.7, Chloride 104, Carbon Dioxide 28.0, Anion Gap 7, BUN 16, Creatinine 0.97, Estim Creat Clear Calc 114.17, Est GFR (MDRD) Af Amer 108, Est GFR (MDRD) Non-Af 90, BUN/Creatinine Ratio 16.5, Glucose 100, Calcium 7.9 L, P hosphorus 0.4 L*, Magnesium 1.7, TSH 1.130 Physical Exam Const alert, oriented x3, no apparent distress, average body habitus and well nourished; Negative for healthy appearing Constitutional Narrative: Disheveled appearing, middle-aged, white male, sitting up in bed with nursing at bedside, appears older than stated age, appears ill but not toxic HEENT head/scalp atraumatic and moist oral mucous membranes Head and Scalp: normocephalic Resp normal respiratory effort, no retractions, no use of accessory muscles and clear to auscultation bilaterally Auscultation: Negative for rales, rhonchi or wheezes Cardio regular rate, regular rhythm, S1 normal heart sound, S2 normal heart sound, no murmurs, no rub, no gallops and no clicks GI normal to inspection, nondistended, normoactive bowel sounds, soft to palpation and non-tender Extremity no clubbing, cyanosis or edema Extremity Narrative: Pedal pulses are 2+, radial pulses are 2+ Skin Skin Narrative: Very superficial cuts on bilateral risks and across neck with no significant purulent drainage Neuro moves all extremities and no focal motor deficits Speech: speech normal Psych Psych Narrative: Affect is flat, eye contact is poor, patient seems somewhat anxious Assessment & Plan Assessment/Plan (1) Intentional self-harm: (2) Sepsis: (3) TAMIKO (acute kidney injury): (4) Pneumonia: (5) Alcohol abuse: PLAN: Plan Sepsis secondary to suspected right lower lobe pneumonia -Blood cultures are pending -No sputum able to be produced -Continue antibiotics with Rocephin and azithromycin for now -Plan to transfer over to oral Levaquin soon--> possibly tomorrow if blood cultures are negative -Day 2 of 7 for antibiotics Severe hypophosphatemia -40 mmol IV replacement -3 times daily oral replacement x 2 days -Will repeat in a.m. Anemia -Suspect down from hemodilution with IV fluid resuscitation -Will trend every 6 x 3 to ensure stability with history of Crohn's Acute thrombocytopenia -Etiology is unclear -Seems to be stabilizing -Continue to monitor -If significant drop tomorrow may need to consider further evaluation Lactic acidosis -Resolved TAMIKO -Resolved Leukocytosis -Resolving -Repeat in a.m. Anion gap metabolic acidosis -Resolved Alcohol abuse with potential pending withdrawal -alcohol level on presentation was 359 -CIWA down from 14 to 7 -Continue phenobarbital taper -Continue CIWA with as needed Ativan -Continue thiamine and folate -Continue as needed medications for alcohol withdrawal -Consider evaluation by 180 however patient will likely need psychiatric admission at discharge due to suicidal ideation and attempt on presentation -Patient did have admission here in September for alcohol withdrawal Tobacco abuse -Patient states he vapes quite a bit -Nicotine patch available -Recommend cessation Depression -Continue home citalopram Hypertension -Continue home metoprolol History of Crohn's disease -Continue home gabapentin -patient is status post ostomy with no current issues DVT prophylaxis -Continue subcu Lovenox CODE STATUS Full code Charges/Coding Visit Charges Inpatient E&M: 93734 Subs Hosp L2
[2024-07-04 08:21] LABS: Hemoglobin 10.7 g/dL (13.0-16.5)
[2024-07-04] MEDS: Potassium Phosphate 40 MM in 0.9% Normal Saline (500mL Bag) 500 ML 62.5 MM IV (08:54)
[2024-07-04 08:56] VITALS: PULSE 86
[2024-07-04] MEDS: Na Biphos/Potassium Phosphate PACKET 1 PACKET PO ×3 (08:56→21:30)
[2024-07-04] MEDS: Metoprolol Tartrate 50 MG Tablet PO ×2 (08:56→21:30)
[2024-07-04 09:00] VITALS: BP 120/81; PULSE 85; RESP 19; TEMP 36.8; O2SAT 95
[2024-07-04] MEDS: Enoxaparin 40 MG/0.4 ML Syringe SC (09:00)
[2024-07-04] MEDS: Thiamine Hydrochloride 100 MG Tablet PO (09:01)
[2024-07-04] MEDS: Folic Acid 1 MG Tablet PO (09:01)
[2024-07-04] MEDS: Citalopram 40 MG TABLET PO (09:01)
[2024-07-04] MEDS: Ferrous Sulfate 325 MG Tablet PO ×3 (09:01→16:00)
[2024-07-04] MEDS: Nicotine Polacrilex 2 MG GUM PO (09:01)
[2024-07-04] MEDS: Mupirocin Ointment 22gm Tube 1 APPLIC TOPICAL ×2 (09:01→21:30)
[2024-07-04] MEDS: 0.9% Saline Lock 10 ML Syringe IV (10:44)
[2024-07-04] MEDS: LORazepam 2 MG/ML Syringe IV (10:45)
[2024-07-04 14:44] VITALS: BP 118/84; PULSE 98; RESP 19; TEMP 36.4; O2SAT 98
[2024-07-04 14:45] LABS: Hemoglobin 10.3 g/dL (13.0-16.5)
[2024-07-04 20:15] VITALS: BP 144/106; PULSE 88; RESP 16; TEMP 36.7; O2SAT 96
[2024-07-04] MEDS: Dicyclomine 10 MG Capsule 20 MG PO (21:14)
[2024-07-04] MEDS: Ceftriaxone 1 GM/50 ML BAG IV (21:26)
[2024-07-04 21:30] VITALS: BP 144/106; PULSE 88
[2024-07-04] MEDS: traZODone 100 MG Tablet PO (21:30)
[2024-07-04] MEDS: Azithromycin 500 MG in 0.9% Normal Saline (250mL Bag) 250 ML 250 MG IV (22:49)
[2024-07-05] VITALS (7 sets, daily range): BP systolic 122–155; BP diastolic 101–110; PULSE 79–91; RESP 15–18; TEMP 36.5–36.8; O2SAT 95–98; BMI 23.9
[2024-07-05] MEDS: Phenobarbital 32.4 MG Tablet PO ×6 (00:13→22:17)
[2024-07-05] MEDS: Na Biphos/Potassium Phosphate PACKET 1 PACKET PO ×3 (06:08→22:06)
[2024-07-05] MEDS: Gabapentin 300 MG Capsule PO ×3 (06:08→22:10)
[2024-07-05] MEDS: LORazepam 2 MG/ML Syringe IV ×4 (06:19→18:08)
[2024-07-05 07:50] LABS: Hemoglobin 10.9 g/dL (13.0-16.5); Mean Corp Hgb Conc 34.1 g/dL (32-36); Mean Corpuscular Hgb 32.4 pg (27.0-32.0); Mean Corpuscular Volume 95.2 fL (80-94); Mean Platelet Vol. 9.6 fl (6.2-12.0); Platelet Count 138 K/mm3 (150-450); RBC Distribution Width CV 13.9 % (11.6-14.6); RBC Distribution Width SD 48.6 fl (35.1-43.9); Red Blood Count 3.36 M/mm3 (4.6-6.2); White Blood Count 8.5 K/mm3 (4.4-11.0)
--- NOTE | 2024-07-05 08:14 | PCM.PN.HOSP ---
Reason for Visit Reason for Visit: Suicide attempt Subjective Subjective CIWA is still between 7 and 10 and on phenobarb taper. Still significant hypophosphatemia issues. Pt denies complaints. Objective Data Objective Data Vital Signs: Vital Signs Temp Pulse Resp BP Pulse Ox O2 Del Method 98.2 F 79 16 122/105 H 97 Room Air 07/05/24 03:00 07/05/24 03:00 07/05/24 03:00 07/05/24 03:00 07/05/24 03:00 07/05/24 03:00 Oxygen Delivery Method Room Air Weight: 84.7 kg Body Mass Index (BMI) 23.9 Intake & Output: Intake and Output for Last 24 Hours 07/03/24 07/04/24 07/05/24 23:59 23:59 23:59 Intake Total 6115 / 6115 2523.3333 / 2823.3333 650 / 650 Output Total 950 / 950 Balance 5165 / 5165 2523.3333 / 2823.3333 650 / 650 Lab / Micro Data 07/05/24 07:16 07/05/24 07:16 Labs: Laboratory Results - last 24 hr 07/04/24 08:13: Hgb 10.7 L 07/04/24 14:23: Hgb 10.3 L 07/05/24 07:16: WBC 8.5, RBC 3.36 L, Hgb 10.9 L, Hct 32.0 L, MCV 95.2 H, MCH 32.4 H, MCHC 34.1, RDW Std Deviation 48.6 H, RDW Coeff of Nish 13.9, Plt Count 138 L, MPV 9.6 Physical Exam Const alert, oriented x3, no apparent distress, average body habitus and well nourished; Negative for healthy appearing Constitutional Narrative: Disheveled appearing, middle-aged, white male, sitting up in bed with nursing at bedside, appears older than stated age, appears ill but not toxic HEENT head/scalp atraumatic and moist oral mucous membranes HEENT Narrative: No thrush Head and Scalp: normocephalic Resp normal respiratory effort, no retractions, no use of accessory muscles and clear to auscultation bilaterally Auscultation: Negative for rales, rhonchi or wheezes Cardio regular rate, regular rhythm, S1 normal heart sound, S2 normal heart sound, no murmurs, no rub, no gallops and no clicks GI normal to inspection, nondistended, normoactive bowel sounds, soft to palpation and non-tender Extremity no clubbing, cyanosis or edema Extremity Narrative: Pedal pulses are 2+, radial pulses are 2+ Skin Skin Narrative: Bandages on bilateral wrist and neck without any signs of drainage through the bandages Neuro moves all extremities and no focal motor deficits Neuro Narrative: Fine tremor noted Speech: speech normal Psych Psych Narrative: Affect is flat, eye contact is poor, less anxious today Assessment & Plan Assessment/Plan (1) Intentional self-harm: (2) Sepsis: (3) TAMIKO (acute kidney injury): (4) Pneumonia: (5) Alcohol abuse: PLAN: Plan Sepsis secondary to suspected right lower lobe pneumonia -Cultures are all negative -Infiltrate on chest x-ray -Will transition to Levaquin to complete antibiotics -Day 3 of 7 for antibiotics Severe hypophosphatemia -40 mmol IV replacement x 2 doses to day -3 times daily oral replacement x 1 more day -Will repeat in a.m. Anemia -Suspect down from hemodilution with IV fluid resuscitation -Stable Acute thrombocytopenia -Etiology is unclear -Now trending up again Leukocytosis -Resolved Alcohol abuse with potential pending withdrawal -alcohol level on presentation was 359 -CIWA trending between 7 and 10 currently -Also still getting some as needed Ativan -Continue phenobarbital taper -Continue CIWA with as needed Ativan -Continue thiamine and folate -Continue as needed medications for alcohol withdrawal -Consider evaluation by 180 however patient will likely need psychiatric admission at discharge due to suicidal ideation and attempt on presentation -Patient did have admission here in September for alcohol withdrawal Tobacco abuse -Patient states he vapes quite a bit -Nicotine patch available -Recommend cessation Depression -Continue home citalopram Hypertension -Continue home metoprolol History of Crohn's disease -Continue home gabapentin -patient is status post ostomy with no current issues DVT prophylaxis -Continue subcu Lovenox CODE STATUS Full code Charges/Coding Visit Charges Inpatient E&M: 42426 Subs Hosp L2
[2024-07-05 08:24] LABS: Anion Gap 6 (5-15); BUN 8 mg/dL (7-18); BUN/Creat Ratio 9.1 RATIO (10-20); Calcium,Total 7.5 mg/dL (8.5-10.1); Chloride 106 mmol/L (98-107); Creatinine, Serum 0.88 mg/dL (0.70-1.30); EST Glomerular Filtration Rate 100 mL/min (>60); Est Glom Filt Rate - Afr Amer 121 mL/min (>60); Estimated Creatinine Clearance 125.84 ml/min; Glucose 95 mg/dL (74-106); Phosphorus 0.9 mg/dL (2.5-4.9); Potassium 3.5 mmol/L (3.5-5.1); Sodium Level 137 mmol/L (136-145)
[2024-07-05] MEDS: Citalopram 40 MG TABLET PO (09:11)
[2024-07-05] MEDS: Thiamine Hydrochloride 100 MG Tablet PO (09:11)
[2024-07-05] MEDS: Folic Acid 1 MG Tablet PO (09:11)
[2024-07-05] MEDS: Metoprolol Tartrate 50 MG Tablet PO ×2 (09:11→22:06)
[2024-07-05] MEDS: Dicyclomine 10 MG Capsule 20 MG PO ×2 (09:11→18:08)
[2024-07-05] MEDS: Ferrous Sulfate 325 MG Tablet PO ×3 (09:12→16:21)
[2024-07-05] MEDS: Enoxaparin 40 MG/0.4 ML Syringe SC (09:13)
[2024-07-05] MEDS: 0.9% Saline Lock 10 ML Syringe IV ×4 (09:14→22:11)
[2024-07-05] MEDS: Potassium Phosphate 40 MM in 0.9% Normal Saline (500mL Bag) 500 ML 62.5 MM IV (09:15)
[2024-07-05] MEDS: Mupirocin Ointment 22gm Tube 1 APPLIC TOPICAL ×2 (09:16→22:05)
[2024-07-05] MEDS: Senna Tablet 2 TABLET PO ×2 (12:44→22:10)
[2024-07-05] MEDS: Sodium Phosphate/Na Biphos 40 MMOL in 0.9% Normal Saline (500mL Bag) 500 ML 62.5 MMOL IV (18:08)
[2024-07-05] MEDS: traZODone 100 MG Tablet PO (22:06)
[2024-07-06] VITALS (7 sets, daily range): BP systolic 136–155; BP diastolic 95–118; PULSE 71–100; RESP 14–18; TEMP 36.6–36.9; O2SAT 96–98; BMI 24.0
[2024-07-06] MEDS: Gabapentin 300 MG Capsule PO ×3 (05:22→21:41)
[2024-07-06] MEDS: Phenobarbital 32.4 MG Tablet PO ×4 (05:22→22:34)
[2024-07-06] MEDS: Na Biphos/Potassium Phosphate PACKET 1 PACKET PO (05:23)
[2024-07-06] MEDS: levoFLOXacin 750 MG Tablet PO (05:28)
[2024-07-06] MEDS: Dicyclomine 10 MG Capsule 20 MG PO (05:28)
[2024-07-06 06:03] LABS: Hematocrit 36.5 % (40-54); Hemoglobin 12.3 g/dL (13.0-16.5); Mean Corp Hgb Conc 33.7 g/dL (32-36); Mean Corpuscular Hgb 32.2 pg (27.0-32.0); Mean Corpuscular Volume 95.5 fL (80-94); Mean Platelet Vol. 9.7 fl (6.2-12.0); Platelet Count 162 K/mm3 (150-450); RBC Distribution Width CV 13.7 % (11.6-14.6); RBC Distribution Width SD 48.5 fl (35.1-43.9); Red Blood Count 3.82 M/mm3 (4.6-6.2); White Blood Count 7.9 K/mm3 (4.4-11.0)
[2024-07-06 06:25] LABS: Anion Gap 4 (5-15); BUN 9 mg/dL (7-18); BUN/Creat Ratio 9.9 RATIO (10-20); Chloride 107 mmol/L (98-107); Creatinine, Serum 0.91 mg/dL (0.70-1.30); EST Glomerular Filtration Rate 96 mL/min (>60); Est Glom Filt Rate - Afr Amer 116 mL/min (>60); Estimated Creatinine Clearance 121.69 ml/min; Glucose 90 mg/dL (74-106); Phosphorus 3.5 mg/dL (2.5-4.9); Potassium 3.9 mmol/L (3.5-5.1); Sodium Level 137 mmol/L (136-145)
--- NOTE | 2024-07-06 07:24 | PN.HOSP_ITS ---
Reason for Visit Reason for Visit: Diagnoses Sepsis, unspecified organism (07/03/24) Alcohol abuse, uncomplicated (07/03/24) Pneumonia, unspecified organism (07/03/24) Acute kidney failure, unspecified (07/03/24) Suicidal ideations (07/03/24) Subjective Subjective Patient with no acute events overnight per self and per nursing report although he does currently report anxiety which increased with discussions about plan for crisis evaluation given medical clearance now achieved. Patient understands need for crisis evaluation and notes that physician recommendation will be for placement for psychiatric evaluation and treatment. Patient denies fevers, chills, nausea, emesis, abdominal pain, chest pain or dyspnea. Objective Data Objective Data Vital Signs: Vital Signs Temp Pulse Resp BP Pulse Ox O2 Del Method 97.8 F 71 14 136/95 H 97 Room Air 07/06/24 05:18 07/06/24 05:18 07/06/24 05:18 07/06/24 05:18 07/06/24 05:18 07/06/24 05:18 Oxygen Delivery Method Room Air Weight: 187 lb 9.814 oz Body Mass Index (BMI) 24.0 Intake & Output: Intake and Output for Last 24 Hours 07/04/24 07/05/24 07/06/24 23:59 23:59 23:59 Intake Total 2523.3333 / 2823.3333 1163.3333 / 1163.3333 513.3333 / 513.3333 Balance 2523.3333 / 2823.3333 1163.3333 / 1163.3333 513.3333 / 513.3333 Lab / Micro Data 07/06/24 05:43 07/06/24 05:43 Labs: Laboratory Results - last 24 hr 07/05/24 07:16: WBC 8.5, RBC 3.36 L, Hgb 10.9 L, Hct 32.0 L, MCV 95.2 H, MCH 32.4 H, MCHC 34.1, RDW Std Deviation 48.6 H, RDW Coeff of Nish 13.9, Plt Count 138 L, MPV 9.6, Sodium 137, Potassium 3.5, Chloride 106, Carbon Dioxide 25.0, Anion Gap 6, BUN 8, Creatinine 0.88, Estim Creat Clear Calc 125.84, Est GFR (MDRD) Af Amer 121, Est GFR (MDRD) Non-Af 100, BUN/Creatinine Ratio 9.1 L, Glucose 95, Calcium 7.5 L, Phosphorus 0.9 L* 07/06/24 05:43: WBC 7.9, RBC 3.82 L, Hgb 12.3 L, Hct 36.5 L, MCV 95.5 H, MCH 32.2 H, MCHC 33.7, RDW Std Deviation 48.5 H, RDW Coeff of Nish 13.7, Plt Count 162, MPV 9.7, Sodium 137, Potassium 3.9, Chloride 107, Carbon Dioxide 25.0, A nion Gap 4 L, BUN 9, Creatinine 0.91, Estim Creat Clear Calc 121.69, Est GFR (MDRD) Af Amer 116, Est GFR (MDRD) Non-Af 96, BUN/Creatinine Ratio 9.9 L, Glucose 90, Calcium 8.0 L, Phosphorus 3.5 Micro: Microbiology 07/03/24 00:57 Blood Culture (Wb) - Anticubital Right Blood Culture - Preliminary No growth in 48 hours. 07/03/24 01:05 Blood Culture (Wb) - Anticubital Left Blood Culture - Preliminary No growth in 48 hours. Physical Exam Narrative Physical Examination: General: Awake, alert, oriented x 3 and cooperative, seated upright in MS bed, emotion is labile, anxious. Skin: Normal color, normal turgor, no icterus, no cyanosis except occasional stage ecchymoses, small lacerations which are superficial healing. HEENT: AT/NC, EOMI, PERRLA, MMM. Lungs: CTA bilaterally, moderate effort, mild decrease BL bases, no rales, ronchi or wheezing. Heart: Regular rate and rhythm; no gallop, rub audible. Abdomen: Soft, NTTP, ND, normal BS. Extremities: No cyanosis, clubbing, or edema, see skin. Neurological: Patient awake, alert, oriented as noted, cognitive function intact; pupils equally reactive to light and accommodation, cranial nerves gross normal, moving all 4 extremities, no focal deficits, strength intact Psychiatric: Affect appears anxious, recent suicide attempt, discussed plan for psychiatric placement with crisis evaluation requested. Assessment & Plan Assessment/Plan (1) Intentional self-harm: (2) Sepsis: (3) TAMIKO (acute kidney injury): (4) Pneumonia: (5) Alcohol abuse: PLAN: Plan The patient is a 43 y/o M w/ PMHx: Former cigarette tobacco use->vaping, HTN, Anxiety and Depression/ADD, Asthma, Chronic anemia/Fe deficiency anemia, Chronic neuropathy, Orthostatic hypotension, Crohn's disease s/p partial colectomy, EtOH abuse who presents to the [facility] ED on 07/03/24 following recent suicide attempt noted to have cut his throat as well as his throat although all were noted to be very superficial and upon ED evaluation however he was noted to have significant leukocytosis, lactic acidosis and a blood alcohol level of 300 with a chest x- ray demonstrating concern for pneumonia. #1. Acute Sepsis secondary to suspected right lower lobe pneumonia: Admitted to medical surgical floor, [facility] treated with IV fluids, cultures all negative, clinically stabilized and improved from sepsis. Given medical clearance will request 07/06/2024 crisis evaluation for placement. #2. Anxiety and depression/ADD with suicide attempt complicated by #1: Continued on patient home citalopram regimen, will need aggressive counseling and follow-up with potential medication adjustments with plan for psychiatric facility transition once medically cleared. #3. Severe electrolyte disturbances suspected likely secondary to underlying alcohol abuse and acute presentation including severe hypophosphatemia: Patient required several rounds of replacement, initiated on 3 times daily oral replacement through 07/06/2024, 07/06/2024 phosphorus 3.5. #4. Chronic macrocytic anemia/iron deficiency anemia: Admission hemoglobin 11.1, previous to this for several months had been 13-15, does have underlying history however suspected likely hemodilution with IV fluid resuscitation given sepsis, 07/06/2024 hemoglobin 12.3, MCV 95.5, stable continue to trend. #5. Acute thrombocytopenia, suspect reactive especially given #1: Admission platelets 173, decreased down to 119, resolving, 07/05/2024 platelets 138, now 07/06/2024 platelets 162. #6. Alcohol abuse with concern for acute alcohol withdrawal: Alcohol level upon presentation 359, maintained on CIWA and continued phenobarbital taper, continue supplemental thiamine and folic acid, continue as needed medications for symptom control, will need aggressive follow-up outpatient once transition from psychiatric facility once medically cleared to transition, most recent presentation for alcohol treatment prior to this was 09/2023. Per review of records patient will complete taper 07/07/2024. #7. Hypertension: Continue home regimen including metoprolol, PRN hydralazine. #8. Crohn's disease: Continued on chronic gabapentin, status post ostomy, no current issues, stable, continue to monitor. #9. Tobacco Abuse: Encouraged cessation, inpatient consultation per RT, NR if desired. #10. DVT prophylaxis: Lovenox. Charges/Coding Visit Charges Inpatient E&M: 70672 Init Hosp L2
--- NOTE | 2024-07-06 09:03 | WOUNDNOTE ---
Was consulted on patient d/t patient having ileostomy. pt states he has had the ostomy for years d/t Crohn's. pt cares for appliance himself. appliance appears to be starting to leak so patient did allow this nurse to change the appliance. flange and pouch removed. there is some mild redness noted to the peristomal skin. stoma is dark pink and well budded. cleansed skin with warm water. pat dry. lightly dusted with stoma powder and applied skin prep. once dry, applied new 2 piece flat Juan appliance with a small amount of stoma paste. reapplied the belt per pt request. pt tolerated well. will monitor.
[2024-07-06] MEDS: Nicotine Polacrilex 2 MG GUM PO ×3 (09:45→22:34)
[2024-07-06] MEDS: Citalopram 40 MG TABLET PO (09:46)
[2024-07-06] MEDS: Folic Acid 1 MG Tablet PO (09:46)
[2024-07-06] MEDS: Metoprolol Tartrate 50 MG Tablet PO ×2 (09:46→21:41)
[2024-07-06] MEDS: Enoxaparin 40 MG/0.4 ML Syringe SC (09:47)
[2024-07-06] MEDS: Loperamide 2 MG Capsule PO (09:53)
[2024-07-06] MEDS: Ferrous Sulfate 325 MG Tablet PO ×3 (09:57→16:38)
[2024-07-06] MEDS: Thiamine Hydrochloride 100 MG Tablet PO (09:57)
[2024-07-06] MEDS: Mupirocin Ointment 22gm Tube 1 APPLIC TOPICAL ×2 (09:57→21:42)
[2024-07-06 10:28] LABS: Pathologist Review Reviewed
--- NOTE | 2024-07-06 10:44 | CASEMGMT ---
Addendum entered by Manuela Alcazar 07/06/24 16:40: Pt to be admitted to [facility]. [facility] [phone] is admissions contact point. FATOU attempted to return a call to Ashley and left a voicemail with floor contact information. STORM Oglesby Addendum entered by Manuela Alcazar 07/06/24 15:25: [facility] STORM Oglesby Original Note: Social Work- SW received notice that physician feels pt is medically stable and SW is able to complete crisis referral. SW completed referral for crisis at [facility]. SW remains available to follow. STORM Oglesby
[2024-07-06] MEDS: hydrOXYzine 10 MG Tablet PO (11:38)
--- NOTE | 2024-07-06 12:06 | WOUNDNOTE ---
stoma/fistula photo: abdomen
--- NOTE | 2024-07-06 12:08 | WOUNDNOTE ---
Pt had called out and asked for assistance with change his ostomy appliance. when this nurse entered the room, patient had removed the appliance and thrown it across the room into the trash can. there was not noted on the floor. when asked pt why he took the appliance off, pt states it needed changed. there was a moderate amount of dry stool to the peristomal skin. was able to get the stool removed after multiple washcloths were used. 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 pt states he is following up with his surgeon in [place]. after cleansing the peristomal skin and drying, applied a new 2 piece flat [place] appliance with a small amount of stoma paste. placed a dry dressing over the fistula. will monitor the drainage. can consider placing a stoma bag for the fistula drainage as well if patient will allow. pt refused to let this nurse assess buttock. will continue to follow.
[2024-07-06] MEDS: LORazepam 0.5 MG Tablet PO (16:35)
--- NOTE | 2024-07-06 17:54 | DS.PCM_ITS ---
Providers Date of Admission: 07/03/24 Date of Discharge: 07/06/24 Primary Care Physician: Dr. Emerita Harman MD Consultations 07/05/24 04:09 Consult: Onc/Wound/reducing salon attendant Routine Comment: Reason for Consult:: colostomy Reason For Visit: SEPSIS Diagnosis Discharge Diagnosis (1) Intentional self-harm: Status: Acute (2) Sepsis: Status: Acute Code(s): A41.9 - Sepsis, unspecified organism (3) TAMIKO (acute kidney injury): Status: Acute Code(s): N17.9 - Acute kidney failure, unspecified (4) Pneumonia: Status: Acute Code(s): J18.9 - Pneumonia, unspecified organism (5) Alcohol abuse: Status: Acute Code(s): F10.10 - Alcohol abuse, uncomplicated Plan: DISCHARGE DIAGNOSES: #1. Acute Sepsis secondary to suspected right lower lobe pneumonia #2. Anxiety and depression/ADD with suicide attempt complicated by #1 #3. Severe electrolyte disturbances suspected likely secondary to underlying alcohol abuse and acute presentation including severe hypophosphatemia #4. Chronic macrocytic anemia/iron deficiency anemia #5. Acute thrombocytopenia, suspect reactive especially given #1 #6. Alcohol abuse with concern for acute alcohol withdrawal treated with phenobarbital taper #7. Hypertension #8. Crohn's disease #9. Tobacco Abuse Medications at Discharge Home Medications ferrous sulfate 325 mg (65 mg iron) tablet 325 mg PO TID SUPPLEMENT 03/27/22 metoprolol tartrate 50 mg tablet 50 mg PO BID #120 tabs 09/19/23 albuterol sulfate 90 mcg/actuation aerosol inhaler 2 puff inhalation Q8H PRN wheezing 07/02/24 citalopram 40 mg tablet 40 mg PO DAILY 07/02/24 gabapentin 300 mg capsule 300 mg PO TID 07/02/24 methylphenidate HCl 27 mg tablet,extended release 24 hr 27 mg PO DAILY 07/02/24 dicyclomine 10 mg capsule 20 mg (2 x 10 mg) PO Q6H PRN PRN abdominal discomfort #0 caps 07/06/24 folic acid 1 mg tablet 1 mg PO DAILY@0800 #0 tabs 07/06/24 levofloxacin 750 mg tablet 750 mg PO DAILY@0600 4 days #4 tabs 07/06/24 loperamide 2 mg capsule 2 mg PO Q4H PRN PRN LS #0 caps 07/06/24 mupirocin 2 % topical ointment 1 applic topical BID Decolonization 2 days #0 grams 07/06/24 nicotine (polacrilex) 2 mg gum 2 mg PO Q2H PRN PRN Nicotine Craving #0 ea 07/06/24 nicotine 14 mg/24 hr daily transdermal patch 14 mg transdermal DAILY #0 ea 07/06/24 phenobarbital 32.4 mg tablet 32.4 mg PO Q6H Completion phenobarbital taper/EtOH withdrawal 1 day #0 tabs 07/06/24 sennosides 8.6 mg tablet (senna) 8.6 mg PO BID 30 days #60 tabs 07/06/24 thiamine HCl (vitamin B1) 100 mg tablet 100 mg PO DAILYCM #0 tabs 07/06/24 trazodone 100 mg tablet 100 mg PO QHS #0 tabs 07/06/24 Hospital Course Operations None Procedures EKG Summary of Care Provided Minutes Spent on Discharge: 35 Hospital Course: The patient is a 43 y/o M w/ PMHx: Former cigarette tobacco use->vaping, HTN, Anxiety and Depression/ADD, Asthma, Chronic anemia/Fe deficiency anemia, Chronic neuropathy, Orthostatic hypotension, Crohn's disease s/p partial colectomy, EtOH abuse who presented to the [facility] ED on 07/03/24 following recent suicide attempt noted to have cut his throat as well as his throat although all were noted to be very superficial and upon ED evaluation however he was noted to have significant leukocytosis, lactic acidosis and a blood alcohol level of 300 with a chest x- ray demonstrating concern for pneumonia. Admitted to medical surgical floor, maintained on antibiotic therapy transition to Levaquin to complete antibiotics (Day 4/7 on day of discharge), treated with IV fluids, cultures all negative, clinically stabilized and improved from sepsis. Given medical clearance requested 07/06/2024 crisis evaluation for placement. Continued on patient home citalopram regimen. Patient with electrolyte disturbances during admission including most recently hypophosphatemia with supplementation initiated with eventual correction, 07/06/2024 phosphorus 3.5. Admission hemoglobin 11.1, previous to this for several months had been 13-15, does have underlying history however suspected likely hemodilution with IV fluid resuscitation given sepsis, 07/06/2024 hemoglobin 12.3, MCV 95.5, stable continue to trend. Admission platelets 173, decreased down to 119, resolving, 07/05/2024 platelets 138, now 07/06/2024 platelets 162. Alcohol level upon presentation 359, maintained on CIWA and continued phenobarbital taper, continue supplemental thiamine and folic acid, continue as needed medications for symptom control. Requested at psychiatric discharge patient to complete the two additional doses in addition to abx therapy completion with PCP follow-up at discharge in addition to repeat CBC, BMP, phos, mag in ideally 1 week. Weight / BMI Weight Weight: 187 lb 9.814 oz Body Mass Index (BMI) 24.0 ABG / Lab / Microbiology Data 07/06/24 05:43 07/06/24 05:43 Laboratory: Laboratory Results - last 24 hr 07/02/24 23:45: Diff Path Review Reviewed 07/06/24 05:43: WBC 7.9, RBC 3.82 L, Hgb 12.3 L, Hct 36.5 L, MCV 95.5 H, MCH 32.2 H, MCHC 33.7, RDW Std Deviation 48.5 H, RDW Coeff of Nish 13.7, Plt Count 162, MPV 9.7, Sodium 137, Potassium 3.9, Chloride 107, Carbon Dioxide 25.0, A nion Gap 4 L, BUN 9, Creatinine 0.91, Estim Creat Clear Calc 121.69, Est GFR (MDRD) Af Amer 116, Est GFR (MDRD) Non-Af 96, BUN/Creatinine Ratio 9.9 L, Glucose 90, Calcium 8.0 L, Phosphorus 3.5 Microbiology: Microbiology 07/03/24 00:57 Blood Culture (Wb) - Anticubital Right Blood Culture - Preliminary No growth in 48 hours. 07/03/24 01:05 Blood Culture (Wb) - Anticubital Left Blood Culture - Preliminary No growth in 48 hours. D/C Instructions DC O2, CPAP, BIPAP Needs Home O2 Discharge instructions: No Meaningful Use Info Meaningful Use Meaningful Use Diagnoses (Choose all that apply): None applicable Ischemic Stroke Statin Dosing Therapy Reference: STATIN DOSE THERAPY REFERENCE: * Patients > 75 years receive moderate or high dose statin therapy. * Patients 75 years or YOUNGER should receive HIGH intensity statin dose unless contraindicated. You will be required to document reason for non-treatment if statin daily dose does not meet guidelines. HIGH DOSE STATIN THERAPY DAILY Atorvastatin > than or = to 40 mg Rosuvastatin > than or = to 20 mg Amlodipine + Atorvastatin > than or = to 2.5/40 mg Ezetimibe + Simvastatin 10/80 mg Simvastatin 80mg Discharge Plan Admission Admit Date/Time: 07/03/24 02:42 Primary Reason for Your Visit: Suicide attempt, Anxiety/Depression/ADD, Sepsis, RLL Pneumonia Attending Provider: Liz Sandoval Primary Care Provider: Emerita Harman Consulting Providers: Jong Shafer; Tracie Fong Instructions Patient Instructions: Pneumonia Community Acquired Additional Instructions / Restrictions: ADDITIONAL DISCHARGE INSTRUCTIONS/FOLLOW-UP: --Please have repeat CBC, BMP, mag and phos levels within 1 week ideally to assure continued improvement. --Please complete all oral antibiotic therapy with stop date last dose 07/10/24. --Please continue the phenobarbital taper to completion with two additional doses on 07/07/24 with last at ~ 16:00 on 07/07/24. --Please follow-up with Primary care within 3-5 days of discharge from psychiatric facility. Discharge Orders/Prescriptions Prescriptions: New folic acid 1 mg Tablet 1 mg PO DAILY@0800 Qty: 0 0RF levofloxacin 750 mg Tablet 750 mg PO DAILY@0600 4 Days Qty: 4 0RF dicyclomine 10 mg Capsule 20 mg PO Q6H PRN PRN (Reason: abdominal discomfort) Qty: 0 0RF sennosides [senna] 8.6 mg Tablet 8.6 mg PO BID 30 Days Qty: 60 0RF loperamide 2 mg Capsule 2 mg PO Q4H PRN PRN (Reason: LS) Qty: 0 0RF thiamine HCl (vitamin B1) 100 mg Tablet 100 mg PO DAILYCM Qty: 0 0RF trazodone 100 mg Tablet 100 mg PO QHS Qty: 0 0RF nicotine 14 mg/24 hr Patch 24 Hour 14 mg transdermal DAILY Qty: 0 0RF nicotine (polacrilex) 2 mg Gum 2 mg PO Q2H PRN PRN (Reason: Nicotine Craving) Qty: 0 0RF mupirocin 2 % Ointment 1 applic topical BID 2 Days Qty: 0 0RF Protocol: *Topical Application Instructions APPLICATION INSTRUCTIONS: to cut areas Rx Instructions: Apply approximately 1/4 inch of the ointment onto a Q-tip. Apply into 1 nostril, repeat dose with a new Q-tip for the other nostril. After application, close the nostrils by pressing together and releasing the sides of the nose repeatedly for approximately 1 minute. This will spread the ointment throughout the nares. Do not use concurrently with any other intranasal product. phenobarbital 32.4 mg Tablet 32.4 mg PO Q6H 1 Days Qty: 0 0RF Continued ferrous sulfate 325 mg (65 mg iron) tablet 325 mg PO TID albuterol sulfate 90 mcg/actuation HFA aerosol inhaler 2 puff inhalation Q8H PRN (Reason: wheezing) gabapentin 300 mg capsule 300 mg PO TID methylphenidate HCl 27 mg tablet extended release 24hr 27 mg PO DAILY citalopram 40 mg tablet 40 mg PO DAILY metoprolol tartrate 50 mg tablet 50 mg PO BID Qty: 120 0RF Referrals / Follow Up: Emerita Harman MD [Primary Care Provider] - (Follow-up once released from psychiatric facility.) Disposition Disposition (needs filled in before D/C Order can be placed): Psychiatric Hospital or Unit Charges/Coding Visit Charges Inpatient E&M: 58247 Disch Hosp >30min
[2024-07-06] MEDS: traZODone 100 MG Tablet PO (21:41)
[2024-07-07] MEDS: Ondansetron 8 MG Tablet PO (00:05)
[2024-07-07 03:55] VITALS: BP 132/88; PULSE 82; RESP 15; TEMP 36.5; O2SAT 95
[2024-07-07] MEDS: Nicotine Polacrilex 2 MG GUM PO (03:58)
[2024-07-07] MEDS: Phenobarbital 32.4 MG Tablet PO (04:33)
[2024-07-07 05:24] VITALS: BMI 23.9
[2024-07-07 05:36] LABS: Absolute Lymphocyte Count 2.03 X10^3/uL (0.83-4.51); Absolute Neutrophil Count 5.5 X10^3/uL (2.0-7.7); Basophil# 0.07 X10^3/uL; Basophil% 0.8 % (0-1); Eosinophil# 0.16 X10^3/uL; Eosinophils% 1.8 % (0-5); Hematocrit 34.4 % (40-54); Hemoglobin 11.6 g/dL (13.0-16.5); Lymphocyte # 2.03 X10^3/ul (0.83-4.51); Lymphocyte % 23.1 % (19-41); Mean Corp Hgb Conc 33.7 g/dL (32-36); Mean Corpuscular Hgb 32.4 pg (27.0-32.0); Mean Corpuscular Volume 96.1 fL (80-94); Mean Platelet Vol. 9.2 fl (6.2-12.0); Monocyte# 0.95 X10^3/uL; Monocyte% 10.8 % (0-10); NRBC Flagged by Analyzer 0 % (0-5); Neutrophil # 5.45 X10^3/uL (2.7-7.7); Neutrophil % 62.1 % (47-70); Platelet Count 171 K/mm3 (150-450); RBC Distribution Width CV 13.7 % (11.6-14.6); RBC Distribution Width SD 48.4 fl (35.1-43.9); Red Blood Count 3.58 M/mm3 (4.6-6.2); White Blood Count 8.8 K/mm3 (4.4-11.0)
[2024-07-07] MEDS: levoFLOXacin 750 MG Tablet PO (06:13)
[2024-07-07] MEDS: Gabapentin 300 MG Capsule PO (06:13)
[2024-07-07 06:17] LABS: ALB/GLOB Ratio 0.6 RATIO (0.9-2.4); AST(SGOT) 41 U/L (15-37); Alanine Aminotransfer ALT/SGPT 29 U/L (16-61); Albumin, Serum 2.7 g/dL (3.2-5.0); Alkaline Phosphatase 100 U/L (45-117); Anion Gap 7 (5-15); BUN 14 mg/dL (7-18); BUN/Creat Ratio 13.9 RATIO (10-20); Calcium,Total 8.4 mg/dL (8.5-10.1); Chloride 104 mmol/L (98-107); Creatinine, Serum 1.01 mg/dL (0.70-1.30); EST Glomerular Filtration Rate 85 mL/min (>60); Est Glom Filt Rate - Afr Amer 103 mL/min (>60); Estimated Creatinine Clearance 109.65 ml/min; Globulin 4.3 g/dL (2.2-4.2); Glucose 87 mg/dL (74-106); Potassium 3.8 mmol/L (3.5-5.1); Sodium Level 132 mmol/L (136-145)
--- NOTE | 2024-07-07 08:43 | PN.HOSP_ITS ---
Reason for Visit Reason for Visit: Diagnoses Sepsis, unspecified organism (07/03/24) Alcohol abuse, uncomplicated (07/03/24) Pneumonia, unspecified organism (07/03/24) Acute kidney failure, unspecified (07/03/24) Suicidal ideations (07/03/24) Subjective Subjective Patient with no acute events overnight per self and per nursing report although he did stay up all night and was talking with staff in the room therefore he is very tired and fatigued this morning he does not want a wake up. Unfortunately patient ambulance transport keeps getting delayed for transition to psychiatric facility which patient was accepted at 07/06/2024 midday. Patient has had increased anxiety since plan for transition psychiatric facility was discussed. Patient denies fevers, chills, nausea, emesis, abdominal pain, chest pain or worsening dyspnea. Objective Data Objective Data Vital Signs: Vital Signs Temp Pulse Resp BP Pulse Ox O2 Del Method 97.7 F L 82 15 132/88 H 95 Room Air 07/07/24 03:55 07/07/24 03:55 07/07/24 03:55 07/07/24 03:55 07/07/24 03:55 07/07/24 04:48 Oxygen Delivery Method Room Air Weight: 186 lb 11.704 oz Body Mass Index (BMI) 23.9 Intake & Output: Intake and Output for Last 24 Hours 07/05/24 07/06/24 07/07/24 23:59 23:59 23:59 Intake Total 1163.3333 / 1163.3333 513.3333 / 513.3333 Balance 1163.3333 / 1163.3333 513.3333 / 513.3333 Lab / Micro Data 07/07/24 05:18 07/07/24 05:18 Labs: Laboratory Results - last 24 hr 07/02/24 23:45: Diff Path Review Reviewed 07/07/24 05:18: WBC 8.8, RBC 3.58 L, Hgb 11.6 L, Hct 34.4 L, MCV 96.1 H, MCH 32.4 H, MCHC 33.7, RDW Std Deviation 48.4 H, RDW Coeff of Nish 13.7, Plt Count 171, MPV 9.2, Immature Gran % (Auto) 1.400 H, Neut % (Auto) 62.1, Lymph % (Auto) 23.1, [place] % (Auto) 10.8 H, Eos % (Auto) 1.8, Baso % (Auto) 0.8, Absolute Neuts (auto) 5.5, Absolute Lymphs (auto) 2.03, Nucleated RBC % 0, Sodium 132 L, Potassium 3.8, Chloride 104, Carbon Dioxide 22.0, Anion Gap 7, BUN 14, Creatinine 1.01, Estim Creat Clear Calc 109.65, Est GFR (MDRD) Af Amer 103, Est GFR (MDRD) Non-Af 85, BUN/Creatinine Ratio 13.9, Glucose 87, Calcium 8.4 L, Total Bilirubin 0.20, AST 41 H, ALT 29, Alkaline Phosphatase 100, Total Protein 7.0, Albumin 2.7 L, Globulin 4.3 H, Albumin/Globulin Ratio 0.6 L Micro: Microbiology 07/03/24 01:05 Blood Culture (Wb) - Anticubital Left Blood Culture - Preliminary No growth in 48 hours. 07/03/24 00:57 Blood Culture (Wb) - Anticubital Right Blood Culture - Preliminary No growth in 48 hours. Physical Exam Narrative Physical Examination: General: Patient will awaken to stimuli but does not want to wake up, not answering questions and attempting to go back to sleep, no obvious distress, stayed up all night talking with staff. Skin: Normal color, normal turgor, no icterus, no cyanosis except occasional stage ecchymoses, small lacerations which are superficial healing. HEENT: AT/NC, MMM. Lungs: CTA bilaterally, moderate effort, mild decrease BL bases, no rales, ronchi or wheezing. Heart: Regular rate and rhythm; no gallop, rub audible. Abdomen: Soft, NTTP, ND, normal BS, appropriately functioning ostomy. Extremities: No cyanosis, clubbing, or edema, see skin. Neurological: Patient will awaken to stimuli but does not want to wake up, not answering questions and attempting to go back to sleep, no obvious distress, stayed up all night talking with staff, cognitive function currently decreased given patient is very tired and does not want to interact but suspect likely he is baseline just fatigued, cranial nerves grossly normal but patient is attempting to go back to bed and does not want to interact at this point this difficulty valuation, spontaneously moving extremities, no obvious strength deficit. Psychiatric: Affect appears fatigued, not wanting to interact, attempting to go back to bed, per discussion with staff had been up all night talking with staff, underlying anxiety and depression with suicide attempt. Assessment & Plan Assessment/Plan (1) Suicidal intent: PLAN: Plan The patient is a 43 y/o M w/ PMHx: Former cigarette tobacco use->vaping, HTN, Anxiety and Depression/ADD, Asthma, Chronic anemia/Fe deficiency anemia, Chronic neuropathy, Orthostatic hypotension, Crohn's disease s/p partial colectomy, EtOH abuse who presents to the [facility] ED on 07/03/24 following recent suicide attempt noted to have cut his throat as well as his throat although all were noted to be very superficial and upon ED evaluation however he was noted to have significant leukocytosis, lactic acidosis and a blood alcohol level of 300 with a chest x- ray demonstrating concern for pneumonia. #1. Acute Sepsis secondary to suspected right lower lobe pneumonia: Admitted to medical surgical floor, maintained on antibiotic therapy [facility] to complete antibiotics (Day 10/18), treated with IV fluids, cultures all negative, clinically stabilized and improved from sepsis. Given medical clearance requested 07/06/2024 crisis evaluation for placement. Patient was accepted and initial plan for d/c 07/06/24 to psychiatric facility; however, ambulance transport keeps being delayed, initially plan for 07/07/24 8 am and now 11 am. #2. Anxiety and depression/ADD with suicide attempt complicated by #1: Continued on patient home citalopram regimen, will need aggressive counseling and follow-up with potential medication adjustments with plan for psychiatric facility transition once medically cleared. #3. Severe electrolyte disturbances suspected likely secondary to underlying alcohol abuse and acute presentation including severe hypophosphatemia: Patient required several rounds of replacement, initiated on 3 times daily oral replacement through 07/06/2024, 07/06/2024 phosphorus 3.5. #4. Chronic macrocytic anemia/iron deficiency anemia: Admission hemoglobin 11.1, previous to this for several months had been 13-15, does have underlying history however suspected likely hemodilution with IV fluid resuscitation given sepsis, 07/07/2024 hemoglobin 11.6, MCV 96.1, stable continue to trend. #5. Acute thrombocytopenia, suspect reactive especially given #1: Admission platelets 173, decreased down to 119, resolving, 07/05/2024 platelets 138, now 07/07/2024 platelets 171. #6. Alcohol abuse with concern for acute alcohol withdrawal: Alcohol level upon presentation 359, maintained on CIWA and continued phenobarbital taper, continue supplemental thiamine and folic acid, continue as needed medications for symptom control, will need aggressive follow-up outpatient once transition from psychiatric facility once medically cleared to transition. Most recent presentation for alcohol treatment prior to this was 09/2023. Per review of records patient will complete taper 07/07/2024 at 1600 therefore dosing placed on his discharge medication sheet for facility depending on when he is transferred specifically based on ambulance availability. #7. Hypertension: Continue home regimen including metoprolol, PRN hydralazine. #8. Crohn's disease: Continued on chronic gabapentin, status post ostomy, no current issues, stable, continue to monitor. #9. Tobacco Abuse: Encouraged cessation, inpatient consultation per RT, NR if desired. #10. DVT prophylaxis: Lovenox. Charges/Coding Visit Charges Inpatient E&M: 68098 Subs Hosp L2
[2024-07-07] MEDS: Enoxaparin 40 MG/0.4 ML Syringe SC (12:42)
[2024-07-07 12:43] VITALS: BP 132/93; PULSE 83
[2024-07-07] MEDS: Metoprolol Tartrate 50 MG Tablet PO (12:43)
[2024-07-07] MEDS: Folic Acid 1 MG Tablet PO (12:43)
[2024-07-07] MEDS: Ferrous Sulfate 325 MG Tablet PO (12:43)
[2024-07-07] MEDS: Citalopram 40 MG TABLET PO (12:44)
[2024-07-07] MEDS: Thiamine Hydrochloride 100 MG Tablet PO (12:44)
[2024-07-07] MEDS: Mupirocin Ointment 22gm Tube 1 APPLIC TOPICAL (12:45)
[2024-07-07 13:00] VITALS: BP 132/93; PULSE 82; RESP 16; TEMP 36.4; O2SAT 96
== END 2024-07-07 13:05 | DRG 720 ==
LOC: ED 07-03 02:22 → ICU 07-03 03:02 → MS3 07-03 18:27
PROVIDERS: Internal Medicine; Admitting Provider Family Medicine; Emergency Provider Emergency Medicine; PCP Internal Medicine; Referring Provider Family Medicine; Visit Provider Family Medicine
DX: A41.9 Sepsis, unspecified organism (principal); E87.20 Acidosis, unspecified; E83.39 Other disorders of phosphorus metabolism; D50.9 Iron deficiency anemia, unspecified; D69.6 Thrombocytopenia, unspecified; F17.290 Nicotine dependence, other tobacco product, uncomplicated; F10.130 Alcohol abuse with withdrawal, uncomplicated; J45.909 Unspecified asthma, uncomplicated; F32.A Depression, unspecified; I10 Essential (primary) hypertension; X78.1XXA Intentional self-harm by knife, initial encounter; K50.90 Crohn's disease, unspecified, without complications; Z93.2 Ileostomy status; J18.9 Pneumonia, unspecified organism; N17.9 Acute kidney failure, unspecified; S60.811A Abrasion of right wrist, initial encounter; S60.812A Abrasion of left wrist, initial encounter; S10.91XA Abrasion of unspecified part of neck, initial encounter; F41.9 Anxiety disorder, unspecified; G62.9 Polyneuropathy, unspecified; I95.1 Orthostatic hypotension; F98.8 Other specified behavioral and emotional disorders with onset usually occurring in childhood and adolescence; Z79.899 Other long term (current) drug therapy; Z90.49 Acquired absence of other specified parts of digestive tract
CPT/HCPCS: 36415; 71045; 80048; 80053; 80076; 80307; 81001; 82077; 82550; 83605; 83735; 84100; 84443; 85018; 85025; 85027; 85610; 85730; 87040; 99285; A4216; J0696